=== PATIENT | female | born 1950 | race Caucasian/White ===

== ENCOUNTER 2019-10-05 14:28 | Inpatient (IN) ==
[2019-10-05] MEDS ORDERED: SODIUM CHLORIDE 0.9% 1000ML 2,000 ML IV ONE (14:56)
[2019-10-05 15:41] LABS: Basophils # (auto) 0.04 K/uL (0-0.2); Basophils % (auto) 0.4 %; Eosinophils # (auto) 0.09 K/uL (0-0.5); Hematocrit (blood only) 36.9 % (37-47); Hemoglobin 12.8 g/dL (12.0-16.0); Immature Granulocytes # (auto) 0.01 K/uL (0.00-0.02); Immature Granulocytes % (auto) 0.1 %; Lymphocytes # (auto) 1.21 K/uL (1.2-3.4); Lymphocytes % (auto) 13.4 %; Mean Corpuscular Hemoglobin 32.5 pg (25-34); Mean Corpuscular Hgb Conc 34.7 g/dL (32-36); Mean Corpuscular Volume 93.7 fL (80-100); Mean Platelet Volume 10.1 fL (7.4-10.4); Monocytes % (auto) 6.7 %; Neutrophils # (auto) 7.06 K/uL (1.4-6.5); Neutrophils % (auto) 78.4 %; Nucleated RBC # (auto) 0.04 K/uL (0-0); Nucleated RBC % (auto) 0.4 %; Platelet Count 338 K/uL (130-400); RDW Coefficient of Variation 14.8 % (11.5-14.5); Red Blood Count 3.94 M/uL (4.2-5.4); White Blood Count 9.01 K/uL (4.8-10.8)
[2019-10-05 15:44] LABS: Appearance Urine Turbid (Clear); Blood Urine 3+ (Negative); Color Urine Orange; Glucose Urine UA Trace (Negative); Ketones Urine Trace (Negative); Leukocyte Esterase Urine 3+ (Negative); Nitrite Urine Negative (Negative); Protein Urine 1+ (Negative); Urobilinogen Urine Negative (Negative); pH Urine 5.5 (4.5-7.5)
[2019-10-05 15:44] LABS: iSTAT Creatinine 0.8 mg/dl (0.6-1.3); iSTAT Hemoglobin 13.9 g/dl (12.0-16.0); iSTAT Ionized Calcium 1.14 mmol/l (1.12-1.32); iSTAT Potassium 3.2 mEq/L (3.3-5.0)
[2019-10-05 15:47] LABS: Bilirubin Urine 3+ (Negative)
[2019-10-05 15:51] LABS: Ictotest Urine Positive (Negative)
[2019-10-05 15:55] LABS: Epithelial Cell Urine 20-30 /lpf (0-5); WBC Urine >30 /hpf (0-5)
[2019-10-05 15:56] LABS: Bacteria Urine 2+ (Negative)
[2019-10-05 15:57] LABS: Hyaline Casts Urine 0-5 /lpf (0-5)
[2019-10-05 16:07] LABS: Albumin Globulin Ratio 0.7 (0.9-2); Albumin Level 3.2 gm/dl (3.4-5.0); BUN Creatinine Ratio 13.5 (10-20); Bilirubin,Total 19.8 mg/dl (0.2-1); Calcium 9.5 mg/dl (8.5-10.1); Creatinine Clr Calc Pharmacy 55.4 ml/min; Est GFR (African American) 61.8; Est GFR (Non-African American) 53.3; Globulin 4.9 gm/dl (2.5-4.0); Potassium 3.1 mmol/L (3.5-5.1); Total Protein 8.1 gm/dl (6.4-8.2)
[2019-10-05] MEDS ORDERED: IOVERSOL 100ml IV PRN (16:24)
--- NOTE | 2019-10-05 16:52 | CT Scan Report ---
CT OF THE ABDOMEN AND PELVIS WITH CONTRAST CLINICAL HISTORY: Jaundice. Nausea and vomiting. COMPARISON STUDY: None. TECHNIQUE: Following IV administration of 93 mL of Optiray-320, axial images of the abdomen and pelvi s were obtained from the lung bases to the proximal femurs. Images were reviewed in the axial, sagitt al, and coronal planes. IV contrast was administered without complication. Automated exposure contro l was utilized for the study. A dose lowering technique was utilized adhering to the principles of A DEVENDRA. CT DOSE: 998.81 mGycm FINDINGS: Lung bases are unremarkable. There is moderate to marked intra and extrahepatic biliary stevie elfego dilatation. The common bile duct measures 1.8 cm in caliber. There is abrupt caliber change of th e mid common bile duct. An enlarged portacaval lymph node measures 2.1 x 1.5 cm. The pancreatic duct is also dilated, measuring 6 mm in caliber. There is abrupt caliber change of the pancreatic duct wit hin the pancreatic head. An ill-defined hypodense pancreatic mass measures approximately 4 x 2.9 cm. Pancreatic glandular atrophy is noted. There is slight narrowing of the portosplenic confluence with mild mass effect upon the main portal vein which is patent. Superior mesenteric artery is patent. Not e is made of a 1.3 cm nodule along the left lateral aspect of the superior mesenteric vein on axial i mage 173 of 516. This is ill-defined. A 9 mm hypodense lateral segment hepatic lesion on image 96 of 516 is noted. No additional hepatic lesions are present. Gallbladder is moderately distended without adjacent infiltration. The spleen, adrenal glands and kidneys are unremarkable. Is no evidence for a bowel obstruction. The appendix is normal. Mild distention of the bladder is noted. There is no pelvi c lymphadenopathy. There are no suspicious osseous lesions. IMPRESSION: 1. Mass within the pancreatic head and neck, measuring approximately 4 x 2.9 cm, with pancreatic and biliary ductal dilatation highly suggestive of pancreatic adenocarcinoma. GI consultation is recommen ded. 2. Several mildly enlarged peripancreatic/portacaval lymph nodes that measure up to 2.1 x 1.5 cm and are suspicious for cristóbal spread of disease. 1.3 cm ill-defined nodule along the left lateral aspect o f the superior mesenteric vein may reflect an enlarged node or tumor implant. Mild narrowing of the p ortosplenic confluence and main portal vein which is patent. 3. Moderate to marked gallbladder distention. 4. 9 mm hypodense lateral segment hepatic lesion. This lesion is indeterminate although probably fidel gn. Electronically signed by: Rodger Campos M.D. 10/05/2019 4:51 PM
[2019-10-05] MEDS ORDERED: ACETAMINOPHEN 325 MG TAB PO PRN ×2 (17:52→17:57)
[2019-10-05] MEDS ORDERED: ONDANSETRON INJ 2 MG/ML 2 ML VIAL IV PRN (17:57)
--- NOTE | 2019-10-05 18:01 | History & Physical Report ---
Date of Service October 05, 2019 Assessment & Plan (1) Pancreatic mass: -Admit to [facility] - significant jaundice secondary to pancreatic mass identified on CT scan -CT reviewed as following: Mass within the pancreatic head and neck, measuring approximately 4 x 2.9 cm, with pancreatic and biliary ductal dilatation highly suggestive of pancreatic adenocarcinoma. GI consultation is recommended. Several mildly enlarged peripancreatic/portacaval lymph nodes that measure up to 2.1 x 1.5 cm and are suspicious for cristóbal spread of disease. 1.3 cm ill- defined nodule along the left lateral aspect of the superior mesenteric vein may reflect an enlarged node or tumor implant. Mild narrowing of the portosplenic confluence and main portal vein which is patent. Moderate to marked gallbladder distention. 9 mm hypodense lateral segment hepatic lesion. This lesion is indeterminate although probably benign. - total bilirubin of 19.1 - AST 102, ALT 160, alk phos 283, trend with am labs - GI consultation, for ERCP and possible stent placement, will need biopsy of the mass, oncological consultation pending results. - Allow diet tonight with full liquids and then NPO after midnight for possible procedure - No chemical ppx in anticipation of procedure - INR with am labs - Continue multivitamin - PT/OT consults (2) Biliary obstruction: (3) Transaminitis: (4) Obesity (BMI 30.0-34.9): - recent weight loss of 7 lbs in past week due to poor oral intake with n/v. Reports was recently eliminating lunch and replaced that meal with a green drink (blended kale, cucumber, spinach, citrus, etc.) - Consider nutritional consultation pending bx results. (5) DVT prophylaxis: -teds, ambulatory CODE: FULL Dispo: From home, to assist with dc planning History of Present Illness Primary Care Provider: Akila Archer This is a 68 yo F without significant PMhx who presents due to recent symptoms including nausea and vomiting which began last Friday through Friday, then appeared to resolve which was then followed by progressive jaundice. The patient notes she called and scheduled an appointment with Dr. Lockwood in [place] for new patient, but would not be able to see her for the next 6 months. She presented to the ER today due to worsening jaundice. She denies any abdominal pain, nausea or vomiting at this time. Patient admits to decreased appetite over the last 2 weeks, she has had approximately 7 pounds of weight loss over the last 1 week which she believes is secondary to poor appetite/nausea and vomiting. She notes her urine is very dark, denies dysuria, hematuria. Of note the patient mentions that her sister who is currently 72 is being followed by [facility] for pancreatic issues which she was only diagnosed within this past month. Her daughter is present at bedside. Patient with transaminitis with total bilirubin = 19.8, AST 102, ALT 160, alk phos 283. Allergies Allergy/AdvReac Type Severity Reaction Status Date / Time No Known Allergies Allergy Unverified 10/05/19 15:55 Home Medications Home Medications Medication Instructions Recorded Confirmed Type multivitamin 1 tab PO QAM 10/05/19 10/05/19 History Past Med/Surg History Medical History No pertinent past medical history Surgical History No history of previous surgery Social History Preferred Language: American Communication Ability: Effective Photo Mask Cleaner Required: No Beliefs That Will Affect Care: None Current Living Situation: Spouse Other Information That Helps Us Care for You: No Feels Safe at Home: Yes Safety Concerns: Feels Safe At This Time Smoking Status: Never smoker Hx Alcohol Use: No Hx Substance Use: No Review of Systems Review of Systems: Constitutional: No fever, sweats or chills, no night sweats or B-symptoms Eyes: No diplopia, no worsening or blurred vision ENT: normal hearing, no trouble swallowing Respiratory: No cough, sputum, dyspnea at rest or on exertion Cardiovascular: No chest pain, tightness or palpitations Abdomen: As per HPI. Musculoskeletal: No joint pain, calf pain, swelling Neurologic: No weakness, numbness/tingling, or balance problems Psychiatric: No anxiety or depression Skin: No rash or itch Physical Exam Physical Exam: General: awake, alert, no apparent distress, + severe jaundice Head: Normocephalic, atraumatic ENT: PERRL, EOMI, no pharyngeal exudate, mucous membranes moist Chest: Clear to auscultation, on room air, no adventitious breath sounds Cardiac: Regular rate and rhythm, no murmur, no JVD, normal peripheral pulses, good capillary refill Abdominal: NABS x 4 quadrants, soft, nondistended, nontender to palpation, no rebound, guarding or tenderness Extremities: Normal inspection, no peripheral edema or erythema, calfs nontender to palpation Psych: Normal mood and affect Neuro: AAO x 3, strength intact bilaterally and related 5/5, no motor deficits, speech is clear, no peripheral sensory deficits Skin: no rash or erythema Results & Data Vital Signs (Past 12 Hours) Vital Signs Temp Pulse Pulse Resp BP BP Pulse Ox 10/05/19 17:08 74 157/89 H 95 10/05/19 15:38 99 10/05/19 15:36 77 18 150/78 H 99 10/05/19 14:34 36.5 C 83 16 155/[address] OF THE ABDOMEN AND PELVIS WITH CONTRAST CLINICAL HISTORY: Jaundice. Nausea and vomiting. COMPARISON STUDY: None. TECHNIQUE: Following IV administration of 93 mL of Optiray-320, axial images of the abdomen and pelvis were obtained from the lung bases to the proximal femurs. Images were reviewed in the axial, sagittal, and coronal planes. IV contrast was administered without complication. Automated exposure control was utilized for the study. A dose lowering technique was utilized adhering to the principles of ALARA. CT DOSE: 998.81 mGycm FINDINGS: Lung bases are unremarkable. There is moderate to marked intra and extrahepatic biliary ductal dilatation. The common bile duct measures 1.8 cm in caliber. There is abrupt caliber change of the mid common bile duct. An enlarged portacaval lymph node measures 2.1 x 1.5 cm. The pancreatic duct is also dilated, measuring 6 mm in caliber. There is abrupt caliber change of the pancreatic duct within the pancreatic head. An ill-defined hypodense pancreatic mass measures approximately 4 x 2.9 cm. Pancreatic glandular atrophy is noted. There is slight narrowing of the portosplenic confluence with mild mass effect upon the main portal vein which is patent. Superior mesenteric artery is patent. Note is made of a 1.3 cm nodule along the left lateral aspect of the superior mesenteric vein on axial image 173 of 516. This is ill-defined. A 9 mm hypodense lateral segment hepatic lesion on image 96 of 516 is noted. No additional hepatic lesions are present. Gallbladder is moderately distended without adjacent infiltration. The spleen, adrenal glands and kidneys are unremarkable. Is no evidence for a bowel obstruction. The appendix is normal. Mild distention of the bladder is noted. There is no pelvic lymphadenopathy. There are no suspicious osseous lesions. IMPRESSION: 1. Mass within the pancreatic head and neck, measuring approximately 4 x 2.9 cm, with pancreatic and biliary ductal dilatation highly suggestive of pancreatic adenocarcinoma. GI consultation is recommended. 2. Several mildly enlarged peripancreatic/portacaval lymph nodes that measure up to 2.1 x 1.5 cm and are suspicious for cristóbal spread of disease. 1.3 cm ill- defined nodule along the left lateral aspect of the superior mesenteric vein may reflect an enlarged node or tumor implant. Mild narrowing of the portosplenic confluence and main portal vein which is patent. 3. Moderate to marked gallbladder distention. 4. 9 mm hypodense lateral segment hepatic lesion. This lesion is indeterminate although probably benign. Code Status & VTE Plan Code Status Full Code -discussed with the patient at bedside PG Care Time/CCT Total # of Minutes Spent Total Time Spent with Patient: Total time spent is greater than 50% in coordination of care (as documented) at patient's floor/unit and/or counseling patient:
[2019-10-05] MEDS ORDERED: cefTRIAXone SODIUM 1,000 MG/50 ML BAG IV SCH (18:30)
--- NOTE | 2019-10-05 19:51 | Emergency Department Note ---
Entered by Beth Oh acting as a scribe for Dominick Palomo DO History of Present Illness General Chief complaint: Illness Stated complaint: YELLOWING OF SKIN AND EYES Source: patient and family History of Present Illness Onset (ago): week(s) 1 Location: face (jaundice ) Maximum Pain Intensity: 0 Associated symptoms: + denies other symptoms (abdominal pain, rhinorrhea, dizziness ), + nausea/vomiting (began 1 week ago (now resolved)) and + other (sleeping car porter stool 1 week ago, darkened urine and itchy skin 5 days ago associated with jaundice ); no headaches The patient is a 68 year old female who presents to the Emergency Room with complaints of illness. The patient states that 1 week ago she began to experience nausea and vomiting which have now resolved. She also reports that she noticed that her stool seemed sleeping car porter during this time. 5 days ago she began to develop jaundice associated with darkened urine and itchy skin. Of note, she does not have a history of cancer, alcohol abuse, or abdominal surgeries. Additionally she has not had any recent travel. She denies abdominal pain, rhinorrhea, headache, and dizziness. The patient offers no additional concerns at this time. No other exacerbating or remitting factors. Home Medications Home Medications Medication Instructions Recorded Confirmed Type multivitamin 1 tab PO QAM 10/05/19 10/05/19 History Allergies Allergy/AdvReac Type Severity Reaction Status Date / Time No Known Allergies Allergy Unverified 10/05/19 15:55 Past Med/Surg History Medical History No pertinent past medical history Surgical History No history of previous surgery Social History Preferred Language: [place] Communication Ability: Effective Doubler Operator Required: No Beliefs That Will Affect Care: None Current Living Situation: Spouse Feels Safe at Home: Yes Smoking Status: Never smoker Hx Alcohol Use: No Hx Substance Use: No Review of Systems See HPI for pertinent positives & negatives. and A total of 10 systems reviewed and were otherwise negative Physical Exam Vital Signs Vital Signs - 24 hr 10/05/19 14:34 10/05/19 15:36 10/05/19 15:38 Temperature 36.5 C Temperature Source Oral Pulse Rate 83 Pulse Rate [Apical] 77 Pulse Rhythm [Apical] Regular Pulse Strength [Apical] Normal Respiratory Rate 16 18 Respiratory Effort / Characteristics Non-Labored Spontaneous Respiratory Depth Normal Blood Pressure 155/83 H Blood Pressure [Left Arm] 150/78 H Blood Pressure Mean 107 Blood Pressure Mean [Left Arm] 102 Blood Pressure Position [Left Arm] Sitting Pulse Oximetry 100 99 99 Oxygen Delivery Method Room Air Room Air Room Air Sepsis Recent Fever Within 48 Hours No Sepsis Action Taken by Nursing No Action Required 10/05/19 17:08 Temperature Temperature Source Pulse Rate Pulse Rate [Apical] 74 Pulse Rhythm [Apical] Regular Pulse Strength [Apical] Normal Respiratory Rate Respiratory Effort / Characteristics Respiratory Depth Normal Blood Pressure Blood Pressure [Left Arm] 157/89 H Blood Pressure Mean Blood Pressure Mean [Left Arm] 111 Blood Pressure Position [Left Arm] Pulse Oximetry 95 Oxygen Delivery Method Room Air Sepsis Recent Fever Within 48 Hours Sepsis Action Taken by Nursing GENERAL: alert, well nourished, no distress, non-toxic, standing in room EYE EXAM: scleral icterus OROPHARYNX: no exudate, no erythema, lips, buccal mucosa, and tongue normal and mucous membranes are moist NECK: supple, no nuchal rigidity, no adenopathy, non-tender LUNGS: Clear to auscultation. Normal chest wall mechanics HEART: no murmurs, S1 normal and S2 normal ABDOMEN: abdomen soft, non-tender, normo-active bowel sounds, no masses, no rebound or guarding. BACK: Back is symmetrical on inspection and there is no deformity, no midline tenderness, no CVA tenderness. SKIN: no rashes and no bruising UPPER EXTREMITIES: upper extremities are grossly normal. LOWER EXTREMITIES: No pitting edema. NEURO EXAM: Normal sensorium, cranial nerves II-XII grossly intact, normal speech, no gross weakness of arms, no gross weakness of legs. Course Course ED COURSE: Vital signs were reviewed and showed hypertension. The patients medical record was reviewed The above diagnostic studies were performed and reviewed. ED treatments and interventions as stated above. 1454: The patient was evaluated in room B10. A complete history and physical examination was performed. 1733: Upon reevaluation, the patient is resting.I discussed my findings with the her and she understands and agrees with the treatment plan. Based on the patients age, coexisting illnesses, exam and lab findings the decision to treat as an inpatient was made. 1753: The patient wanted to go home but after further discussion she has reconsidered and is willing to stay. The patient remained stable while under my care. The patient will be evaluated for further management by Dr. Downing, [facility] Hospitalist. Administered Medications Ioversol (Optiray 320 100ml) 93 ml IV ONCE PRN PRN Reason: Interaction Checking Stop: 10/09/19 16:23 Last Admin: 10/05/19 16:25 Dose: 93 ml Documented by: [id number] Discontinued Medications Sodium Chloride (Nss 1000ml) 2,000 mls @ 999 mls/hr IV .Q2H1M ONE Stop: 10/05/19 16:56 Last Infusion: 10/05/19 17:37 Dose: 0 mls/hr Documented by: [id number] Admin: 10/05/19 15:30 Dose: 999 mls/hr Documented by: [id number] Medical Decision Making Differential Diagnosis Differential diagnoses includes but is not limited to gastritis, peptic ulcer disease, GERD, gallbladder disease, pancreatitis, small bowel obstruction, acute coronary syndrome, pericarditis, ischemic bowel, irritable bowel disease, irritable bowel syndrome, appendicitis, diverticulitis, malignancy, hernia, urinary tract infection, torsion, /ectopic (if female), perforation, trauma, infectious. Medical Records Attestation: I reviewed the patient's medical records. Home Medications Current Medication List: was personally reviewed by me Laboratory Data Attestation: I reviewed the patient's lab results. Result diagrams: 10/05/19 15:26 10/05/19 15:26 Lab Results 10/05/19 10/05/19 10/05/19 Range/Units 15:26 15:26 15:27 WBC 9.01 (4.8-10.8) K/uL RBC 3.94 L (4.2-5.4) M/uL Hgb 12.8 (12.0-16.0) g/dL POC Hgb (12.0-16.0) g/dl Hct 36.9 L (37-47) % POC Hct (37-47) % MCV 93.7 (80-100) fL MCH 32.5 (25-34) pg MCHC 34.7 (32-36) g/dL RDW Std Deviation 51.0 H (36.4-46.3) fL RDW Coeff of Axel 14.8 H (11.5-14.5) % Plt Count 338 (130-400) K/uL MPV 10.1 (7.4-10.4) fL Immature Gran % (Auto) 0.1 % Neut % (Auto) 78.4 % Lymph % (Auto) 13.4 % [place] % (Auto) 6.7 % Eos % (Auto) 1.0 % Baso % (Auto) 0.4 % Immature Gran # (Auto) 0.01 (0.00-0.02) K/uL Neut # (Auto) 7.06 H (1.4-6.5) K/uL Lymph # (Auto) 1.21 (1.2-3.4) K/uL [place] # (Auto) 0.60 H (0.11-0.59) K/uL Eos # (Auto) 0.09 (0-0.5) K/uL Baso # (Auto) 0.04 (0-0.2) K/uL Absolute Nucleated RBC 0.04 H (0-0) K/uL Nucleated RBC % (auto) 0.4 % POC Sodium (135-144) mEq/L Sodium 135 L (136-145) mmol/L POC Potassium (3.3-5.0) mEq/L Potassium 3.1 L (3.5-5.1) mmol/L POC Chloride (101-112) mEq/L Chloride 100 (98-107) mmol/L Carbon Dioxide 28 (21-32) mmol/L POC Total CO2 (24-31) mEq/l Anion Gap 7.0 (3-11) POC Anion Gap (16-25) mmol/L POC BUN (7-18) mg/dl BUN 14 (7-18) mg/dl Creatinine 1.07 (0.6-1.2) mg/dl POC Creatinine (0.6-1.3) mg/dl Est Cr Clr Drug Dosing 55.4 ml/min Est GFR ( Amer) 61.8 Est GFR (Non-Af Amer) 53.3 BUN/Creatinine Ratio 13.5 (10-20) Glucose 136 H (70-99) mg/dl POC Glucose (other) (70-99) mg/dl Calcium 9.5 (8.5-10.1) mg/dl POC Ioniz Calcium Liseth (1.12-1.32) mmol/l Total Bilirubin 19.8 H (0.2-1) mg/dl AST 102 H (15-37) U/L ALT 160 H (12-78) U/L Alkaline Phosphatase 283 H (45-117) U/L Total Protein 8.1 (6.4-8.2) gm/dl Albumin 3.2 L (3.4-5.0) gm/dl Globulin 4.9 H (2.5-4.0) gm/dl Albumin/Globulin Ratio 0.7 L (0.9-2) Lipase 182 (73-393) U/L Urine Color [place] Urine Appearance Turbid A (Clear) Urine pH 5.5 (4.5-7.5) Ur Specific [place] 1.020 (1.000-1.030) Urine Protein 1+ H (Negative) Urine Glucose (UA) Trace H (Negative) Urine Ketones Trace H (Negative) Urine Blood 3+ H (Negative) Urine Nitrite Negative (Negative) Urine Bilirubin 3+ H (Negative) Urine Urobilinogen Negative (Negative) Ur Leukocyte Esterase 3+ H (Negative) Urine RBC 10-30 H (0-4) /hpf Urine WBC >30 H (0-5) /hpf Ur Epithelial Cells 20-30 H (0-5) /lpf Urine Bacteria 2+ H (Negative) Hyaline Casts 0-5 (0-5) /lpf Granular Casts 1-5 H (0) /lpf // Range/Units 15:29 WBC (4.8-10.8) K/uL RBC (4.2-5.4) M/uL Hgb (12.0-16.0) g/dL POC Hgb 13.9 (12.0-16.0) g/dl Hct (37-47) % POC Hct 41 (37-47) % MCV (80-100) fL MCH (25-34) pg MCHC (32-36) g/dL RDW Std Deviation (36.4-46.3) fL RDW Coeff of Axel (11.5-14.5) % Plt Count (130-400) K/uL MPV (7.4-10.4) fL Immature Gran % (Auto) % Neut % (Auto) % Lymph % (Auto) % [place] % (Auto) % Eos % (Auto) % Baso % (Auto) % Immature Gran # (Auto) (0.00-0.02) K/uL Neut # (Auto) (1.4-6.5) K/uL Lymph # (Auto) (1.2-3.4) K/uL [place] # (Auto) (0.11-0.59) K/uL Eos # (Auto) (0-0.5) K/uL Baso # (Auto) (0-0.2) K/uL Absolute Nucleated RBC (0-0) K/uL Nucleated RBC % (auto) % POC Sodium 137 (135-144) mEq/L Sodium (136-145) mmol/L POC Potassium 3.2 L (3.3-5.0) mEq/L Potassium (3.5-5.1) mmol/L POC Chloride 99 L (101-112) mEq/L Chloride (98-107) mmol/L Carbon Dioxide (21-32) mmol/L POC Total CO2 27 (24-31) mEq/l Anion Gap (3-11) POC Anion Gap 15.0 L (16-25) mmol/L POC BUN 14 (7-18) mg/dl BUN (7-18) mg/dl Creatinine (0.6-1.2) mg/dl POC Creatinine 0.8 (0.6-1.3) mg/dl Est Cr Clr Drug Dosing ml/min Est GFR ( Amer) Est GFR (Non-Af Amer) BUN/Creatinine Ratio (10-20) Glucose (70-99) mg/dl POC Glucose (other) 139 H (70-99) mg/dl Calcium (8.5-10.1) mg/dl POC Ioniz Calcium [place] 1.14 (1.12-1.32) mmol/l Total Bilirubin (0.2-1) mg/dl AST (15-37) U/L ALT (12-78) U/L Alkaline Phosphatase (45-117) U/L Total Protein (6.4-8.2) gm/dl Albumin (3.4-5.0) gm/dl Globulin (2.5-4.0) gm/dl Albumin/Globulin Ratio (0.9-2) Lipase (73-393) U/L Urine Color Urine Appearance (Clear) Urine pH (4.5-7.5) Ur Specific [place] (1.000-1.030) Urine Protein (Negative) Urine Glucose (UA) (Negative) Urine Ketones (Negative) Urine Blood (Negative) Urine Nitrite (Negative) Urine Bilirubin (Negative) Urine Urobilinogen (Negative) Ur Leukocyte Esterase (Negative) Urine RBC (0-4) /hpf Urine WBC (0-5) /hpf Ur Epithelial Cells (0-5) /lpf Urine Bacteria (Negative) Hyaline Casts (0-5) /lpf Granular Casts (0) /lpf Imaging Data Radiologist's Impression: Radiology results as stated below per my review and the radiologist's interpretation: CT OF THE ABDOMEN AND PELVIS WITH CONTRAST CLINICAL HISTORY: Jaundice. Nausea and vomiting. COMPARISON STUDY: None. TECHNIQUE: Following IV administration of 93 mL of Optiray-320, axial images of the abdomen and pelvis were obtained from the lung bases to the proximal femurs. Images were reviewed in the axial, sagittal, and coronal planes. IV contrast was administered without complication. Automated exposure control was utilized for the study. A dose lowering technique was utilized adhering to the principles of ALARA. CT DOSE: 998.81 mGycm FINDINGS: Lung bases are unremarkable. There is moderate to marked intra and extrahepatic biliary ductal dilatation. The common bile duct measures 1.8 cm in caliber. There is abrupt caliber change of the mid common bile duct. An enlarged portacaval lymph node measures 2.1 x 1.5 cm. The pancreatic duct is also dilated, measuring 6 mm in caliber. There is abrupt caliber change of the pancreatic duct within the pancreatic head. An ill-defined hypodense pancreatic mass measures approximately 4 x 2.9 cm. Pancreatic glandular atrophy is noted. There is slight narrowing of the portosplenic confluence with mild mass effect upon the main portal vein which is patent. Superior mesenteric artery is patent. Note is made of a 1.3 cm nodule along the left lateral aspect of the superior mesenteric vein on axial image 173 of 516. This is ill-defined. A 9 mm hypodense lateral segment hepatic lesion on image 96 of 516 is noted. No additional hepatic lesions are present. Gallbladder is moderately distended without adjacent infiltration. The spleen, adrenal glands and kidneys are unremarkable. Is no evidence for a bowel obstruction. The appendix is normal. Mild distention of the bladder is noted. There is no pelvic lymphadenopathy. There are no suspicious osseous lesions. IMPRESSION: 1. Mass within the pancreatic head and neck, measuring approximately 4 x 2.9 cm, with pancreatic and biliary ductal dilatation highly suggestive of pancreatic adenocarcinoma. GI consultation is recommended. 2. Several mildly enlarged peripancreatic/portacaval lymph nodes that measure up to 2.1 x 1.5 cm and are suspicious for cristóbal spread of disease. 1.3 cm ill-defin ed nodule along the left lateral aspect of the superior mesenteric vein may reflect an enlarged node or tumor implant. Mild narrowing of the portosplenic confluence and main portal vein which is patent. 3. Moderate to marked gallbladder distention. 4. 9 mm hypodense lateral segment hepatic lesion. This lesion is indeterminate although probably benign. Electronically signed by: Rodger Campos M.D. 10/05/2019 4:51 PM Blood Pressure Blood Pressure Findings: Elevated blood pressure Blood Pressure Disposition: further management by hospitalist MDM Narrative Patient is a 68-year-old female that presents the ER for nausea vomiting which was present last week but now has resolved and has been progressively turning more more jaundiced. IV was established blood work was obtained showed no significant leukocytosis or anemia. BMP with mild hypokalemia. LFTs slightly elevated at 102 160. Bilirubin elevated at 20. Lipase was normal. UA without without infection although contaminated with multiple epithelial cells. Patient was given IV fluids. CT abdomen pelvis shows biliary obstruction with a pancreatic head mass. Patient was updated bedside. Discussed with GI and the hospitalist and patient was admitted for endoscopy. Impression & Plan Pancreatic mass, Biliary obstruction, Transaminitis Discharge Plan Visit Data *Final* Discharge Date/Time: 10/05/19 19:05 Chief Complaint: Illness Stated Complaint: YELLOWING OF SKIN AND EYES ED Provider: Dominick Palomo Discharge Problem: Pancreatic mass, Biliary obstruction, Transaminitis Patient Disposition: Admitted As Inpatient Discharge Instructions Interventions: ED Discharge Assessment Last Done: 10/05/19 19:05 The scribe's documentation has been prepared under my direction and personally reviewed by me in its entirety. I confirm that the note above accurately reflects all work, treatment, procedures, and medical decision making performed by me.
[2019-10-05 19:52] LABS: Bilirubin Direct 15.5 mg/dl (0-0.2)
[2019-10-06 06:45] LABS: Hemoglobin 11.4 g/dL (12.0-16.0); Mean Corpuscular Hemoglobin 32.7 pg (25-34); Mean Corpuscular Hgb Conc 34.5 g/dL (32-36); Mean Corpuscular Volume 94.6 fL (80-100); Mean Platelet Volume 10.1 fL (7.4-10.4); Platelet Count 329 K/uL (130-400); RDW Standard Deviation 51.4 fL (36.4-46.3); Red Blood Count 3.49 M/uL (4.2-5.4); White Blood Count 8.59 K/uL (4.8-10.8)
[2019-10-06 06:53] LABS: INR 1.5 (0.9-1.1); Prothrombin Time 14.6 Seconds (9.0-12.0)
[2019-10-06 07:22] LABS: Albumin Globulin Ratio 0.6 (0.9-2); Albumin Level 2.5 gm/dl (3.4-5.0); BUN Creatinine Ratio 10.2 (10-20); Bilirubin,Total 16.6 mg/dl (0.2-1); Calcium 8.7 mg/dl (8.5-10.1); Creatinine Clr Calc Pharmacy 73.2 ml/min; Est GFR (African American) 86.5; Est GFR (Non-African American) 74.6; Globulin 3.9 gm/dl (2.5-4.0); Potassium 3.1 mmol/L (3.5-5.1); Total Protein 6.4 gm/dl (6.4-8.2)
[2019-10-06 07:37] LABS: Estimated Average Glucose 140 mg/dl; Hemoglobin A1C 6.5 % (4.5-5.6)
[2019-10-06] MEDS: MULTIVITAMIN TAB PO SCH (08:47)
[2019-10-06] MEDS ORDERED: POTASSIUM CHLORIDE 20 MEQ TABCR PO ONE ×2 (09:15→13:00)
--- NOTE | 2019-10-06 10:07 | Gastrointestinal Consultation ---
Date of Consultation October 06, 2019 Assessment & Plan (1) Pancreatic mass: 1. ERCP today for stenting. I explained to the pt that this will improve her nausea/vomiting and jaundice but is not curative. 2. EUS later this week at [facility] for staging and possible tissue sampling. 3. K supplement and recheck serum K. 4. 5mg Vit K. 5. Continue antibiotic coverage of cholangitis though no clear evidence of infection: WBC normal, afebrile, no chills. 6. Further recommendations to follow ERCP. Present on Admission?: Yes Supervising Physician Co-Signing Physician Notes I performed a history and physical examination of the patient, including specifically on physical exam - soft, nontender abdomen. I have discussed the patient's management with Adeline. Please refer to the nurse practitioner's note for the documented findings and plan of care. ERCP today and EUS FNA Friday. History of Present Illness Reason for Consultation: Pancreatic Mass Requesting Physician: Dr. Pettit Attending Physician: Ender Ordoñez History of Present Illness Ms. Shelia Alvarez is a 68 yr old female pt of Dr. Lea Archer with a hx of obesity presented to [facility] yesterday with report of painless jaundice with nausea and vomiting, of one week duration. On arrival, CT with a 4cm pancreatic mass and possible liver mass. T bili 19.8, AST 102, ALT 160. Pt is awake, alert, oriented, and denies abdominal pain. She has not had any vomiting today. Allergies Allergy/AdvReac Type Severity Reaction Status Date / Time No Known Allergies Allergy Unverified 10/05/19 15:55 Home Medications Home Medications Medication Instructions Recorded Confirmed Type multivitamin 1 tab PO QAM 10/05/19 10/05/19 History Patient History Medical History No pertinent past medical history Surgical History No history of previous surgery Social History Preferred Language: Irish Communication Ability: Effective Licensed Club Manager Required: No Beliefs That Will Affect Care: None Current Living Situation: Spouse Feels Safe at Home: Yes Smoking Status: Never smoker Hx Alcohol Use: No Hx Substance Use: No Review of Systems Review of Systems: ROS: Gen: Denies weakness, fevers, weight loss Eyes: No eye redness, or pain, no recent vision changes Resp: No SOB, no cough Cardio: No palpitations/irregular beats, no chest pain GI: No abdominal pain, + nausea/vomiting : + dark urine, denies pain on urination Skin: + jaundice, itching or new rashes Physical Exam Constitutional: WD/WN, vitals as above Eyes: PERRL, conjunctivae normal, anicteric sclerae ENMT: external ear and nose normal, oropharynx normal Neck: trachea midline, no thyromegaly Respiratory: normal respiratory effort, lungs clear to auscultation Cardiovascular: RRR, no murmur, no edema Gastrointestinal (Abdomen): Inspection/Auscultation: abdomen not distended Percussion/Palpation: + abdomen tender and abdomen soft Musculoskeletal: no cyanosis or clubbing, extremities motor strength 5/5 Skin: + jaundice Neurologic: PERRL, EOMI, accommodation nl, no face palsy, no dysarthria Psychiatric: A+Ox3, euthymic affect Results & Data Vital Signs (Past 12 Hours) Vital Signs Temp Pulse Resp BP Pulse Ox 10/06/19 06:49 36.8 C 78 20 138/75 93 10/05/19 23:54 36.8 C 76 20 134/[address] with contrast 10/05/19: 1. Mass within the pancreatic head and neck, measuring approximately 4 x 2.9 cm, with pancreatic and biliary ductal dilatation highly suggestive of pancreatic adenocarcinoma. GI consultation is recommended. 2. Several mildly enlarged peripancreatic/portacaval lymph nodes that measure up to 2.1 x 1.5 cm and are suspicious for cristóbal spread of disease. 1.3 cm ill- defined nodule along the left lateral aspect of the superior mesenteric vein may reflect an enlarged node or tumor implant. Mild narrowing of the portosplenic confluence and main portal vein which is patent. 3. Moderate to marked gallbladder distention. 4. 9 mm hypodense lateral segment hepatic lesion. This lesion is indeterminate although probably benign
[2019-10-06] MEDS ORDERED: PHYTONADIONE 5 MG in SODIUM CHLORIDE 0.9% 50 ML IV ONE (10:30)
[2019-10-06] MEDS ORDERED: POTASSIUM CHLORIDE / WTR 10 MEQ/100 ML PLCT IV ONE (10:30)
[2019-10-06] MEDS ORDERED: PROPOFOL IV EMULSION 10 MG/ML 20 ML VIAL IV ONE (13:58)
[2019-10-06] MEDS ORDERED: DEXAMETHASONE SOD INJ 4 MG/ML VIAL ONE (13:58)
[2019-10-06] MEDS ORDERED: LIDOCAINE HCL 2% 2 ML VIAL/AMP(20MG/ML) INFIL ONE (13:58)
[2019-10-06] MEDS ORDERED: ONDANSETRON INJ 2 MG/ML 2 ML VIAL ONE (13:58)
[2019-10-06] MEDS ORDERED: fentaNYL citrate 100 MCG/2 ML VIAL ONE ×2 (13:58→15:03)
[2019-10-06] MEDS ORDERED: INDOMETHACIN 50 MG SUPP PR ONE (14:13)
--- NOTE | 2019-10-06 14:26 | Anesthesiology Consultation ---
Date of Service October 06, 2019 Pancreatic Mass Jaundice Assessment & Plan (1) Encounter for pre-operative examination: Chart Review Chart Review: Acceptable Risk for Surgery and Patient NOT seen in Pre Admission Testing Consults Requested none ASA ASA3 Proposed Anesthesia Anesthesia Type: General Risk / Benefits Reviewed With: PT / POA / Parent / Guardian, Accepts Plan and Informed Consent Obtained History Surgery Operation Date: 10/06/19 11:10 Proposed Procedures p Endoscopic Retrograde Cholangiopancreatogram - Francis Pacheco MD Height/Weight Height: 5 ft 5 in Weight: 89 kg Allergies Allergy/AdvReac Type Severity Reaction Status Date / Time No Known Allergies Allergy Unverified 10/05/19 15:55 Medications Home Medications Medication Instructions Recorded Confirmed Last Taken multivitamin 1 tab PO QAM 10/05/19 10/05/19 10/05/19 Active Medications Generic Name Dose Route Start Last Admin Trade Name Freq PRN Reason Stop Dose Admin Ceftriaxone Sodium 1,000 mg in 50 mls @ 100 mls/hr 10/05/19 18:30 10/05/19 23:02 Rocephin IV 10/10/19 18:29 Infused DAILY@1830 BENNIE Infusion Ioversol 93 ml 10/05/19 16:24 10/05/19 16:25 Optiray 320 100ml IV 10/09/19 16:23 93 ml ONCE PRN Administration Interaction Checking Multivitamins 1 tab 10/06/19 09:00 10/06/19 08:47 Multivitamin Tab PO 11/05/19 08:59 1 tab QAM BENNIE Administration NPO Date Last Intake of Fluids: 10/05/19 Time Last Intake of Fluids: 23:30 Last Intake of Fluids Comment: sip with pills this morning Date Last Intake of Solids: 10/05/19 Time Last Intake of Solids: 12:00 Past Medical History Medical History No pertinent past medical history Exercise / Class Metabolic Activity II 4-5 Yardwork/Stairs/Walk up hill Past Surgical History Surgical History No history of previous surgery Past Anesthesia History No Hx of Anesthesia Complications and No Family Hx of Anesthesia Complications History of PONV No Hx of PONV and No Hx of Motion Sickness Social History Smoking Status: Never smoker Hx Alcohol Use: No Hx Substance Use: No Physical Exam Vital Signs Last Vital Signs Temp 36.7 C 10/06/19 14:15 Pulse 73 10/06/19 14:15 Resp 20 10/06/19 14:15 BP 149/77 H 10/06/19 14:15 Pulse Ox 94 10/06/19 14:15 Constitutional + jaundice ENMT Mouth: + dentures (upper) and + loose teeth (see chart) Thyromental Distance: > or= 3.5 Finger Breadths Mallampati Class: II Mouth / Teeth: 1. Loose Neck normal visual inspection Respiratory normal respiratory effort Auscultation: lungs clear to auscultation bilaterally Cardiovascular Rate/Rhythm: regular rate and regular rhythm Psychiatric Orientation: alert Testing Laboratory Results 10/06/19 06:08 10/06/19 13:08 PT 14.6 Seconds (9.0-12.0) H 10/06/19 06:08 INR 1.5 (0.9-1.1) H 10/06/19 06:08 Hemoglobin A1c 6.5 % (4.5-5.6) H 10/06/19 06:08 Urine Color [place] 10/05/19 15:27 Urine Appearance Turbid (Clear) A 10/05/19 15:27 Urine pH 5.5 (4.5-7.5) 10/05/19 15:27 Ur Specific [place] 1.020 (1.000-1.030) 10/05/19 15:27 Urine Protein 1+ (Negative) H 10/05/19 15:27 Urine Glucose (UA) Trace (Negative) H 10/05/19 15:27 Urine Ketones Trace (Negative) H 10/05/19 15:27 Urine Nitrite Negative (Negative) 10/05/19 15:27 Ur Leukocyte Esterase 3+ (Negative) H 10/05/19 15:27 Urine RBC 10-30 /hpf (0-4) H 10/05/19 15:27 Urine WBC >30 /hpf (0-5) H 10/05/19 15:27 Ur Epithelial Cells 20-30 /lpf (0-5) H 10/05/19 15:27 10/05/19 15:27 Urine Culture - Preliminary Urine,Clean Catch Pin-point growth present, reincubating.
--- NOTE | 2019-10-06 15:17 | Hospitalist Progress Note ---
Date of Service October 06, 2019 Assessment & Plan (1) Pancreatic mass: - Presented with jaundice in setting of pancreatic mass noted on CT scan - likely related to pancreatic cancer. - CT A/P --> mass within the pancreatic head and neck, measuring approximately 4 x 2.9 cm, with pancreatic and biliary ductal dilatation highly suggestive of pancreatic adenocarcinoma. Several mildly enlarged peripancreatic/portacaval lymph nodes that measure up to 2.1 x 1.5 cm and are suspicious for cristóbal spread of disease. 1.3 cm ill-defined nodule along the left lateral aspect of the superior mesenteric vein may reflect an enlarged node or tumor implant. Mild narrowing of the portosplenic confluence and main portal vein which is patent. - T bili was 19 on admission, now trended down to 16. AST, ALT and Alk Phos also elevated. - GI consulted, s/p ERCP this afternoon - had single severe biliary stricture in lower third main bile duct with ductal dilatation, cytology pending. CBD stent was placed. - Plan EUS for FNA on Friday at 11:30 (avoid all NSAIDs) - Will need oncology referral pending biopsy results. - Monitor CMP daily - expect improvement in LFTs over next 24-48 hours. - Cipro 500 mg BID x 5 days. (2) Liver lesion: - CT A/P showed 9 mm hypodense lateral segment hepatic lesion. This lesion is indeterminate although probably benign. - F/u with oncology for staging purposes. (3) Biliary obstruction: - As noted above, in setting of pancreatic mass. (4) Transaminitis: - As noted above. - Monitor CMP daily. (5) Prolonged INR: - INR was 1.5; received Vit K 5 mg IV x 1 dose pre operatively. - Possibly related to underlying liver dysfunction vs. malnutrition in setting of limited diet and poor PO intake. (6) UTI (urinary tract infection): - Positive u/a on admission, UC is neg (prelim) - On Cipro for empiric coverage. (7) Obesity (BMI 30.0-34.9): - Recent weight loss of 7 lbs in past week due to poor oral intake with n/v. Reports was recently eliminating lunch and replaced that meal with a green drink (blended kale, cucumber, spinach, citrus, etc.) - Consider nutrition consultation. (8) Hypokalemia: - K level 3.1 - ordered K 40 mEq PO and also received K 10 mEq IV x 1 dose. - Repeat K level was 3.7. - Monitor K and Mag levels daily. (9) DVT prophylaxis: - TEDs; hold pharmacologic ppx for procedure. Dispo: Med/surg for evaluation of pancreatic meass. Supervising Physician Co-Signing Physician Notes Attending Attestation - Chart reviewed, care plan d/w BA Alvarez. I agree w/ the solomon components of her documentation. 68yo female with pancreatic mass resulting in biliary obstruction s/p ERCP today by [employer] ARREGUIN with placement of CBD stent. Plan for repeat labs in am; supportive care. Outpatient EUS this Friday. Ender Ordoñez MD Subjective Pt. has persistent jaundice, scleral icterus but denies abd pain, N/V. Plan for ERCP this afternoon. Review of Systems Review of Systems: All systems reviewed & are unremarkable except as noted in HPI & below Constitutional: + fatigue, + weakness and + anorexia; no fever and no chills Respiratory: no cough, no dyspnea, no dyspnea on exertion and no wheezing Cardiovascular: no chest pain, no palpitations and no edema Gastrointestinal: no abdominal pain, no nausea, no vomiting, no constipation and no diarrhea/loose stools Genitourinary: no difficulty urinating Musculoskeletal: no back pain and no joint pain Integumentary: + yellowing of the skin Physical Exam Physical Exam: General: Resting comfortably HEENT: NC/AT; PERRLA with EOMI; [place] conjunctiva, MMM. No erythema of posterior pharynx Neck: Supple and nontender Cardiac: RRR Lungs: CTA bilaterally Abdomen: Bowel normoactive X 4; Nontender to palpation Extremities: Warm. No edema present Neuro: No focal weakness Skin: Diffuse jaundice; also have scleral icterus bilaterally. Results & Data Vital Signs (Past 12 Hours) Vital Signs Temp Pulse Resp BP Pulse Ox 10/06/19 14:15 36.7 C 73 20 149/77 H 94 10/06/19 11:15 36.5 C 72 18 145/77 H 91 10/06/19 10:46 36.6 C 67 18 116/73 93 10/06/19 06:49 36.8 C 78 20 138/75 93 Laboratory Results 10/06/19 10/06/19 10/06/19 Range/Units 13:08 06:08 06:08 WBC (4.8-10.8) K/uL RBC (4.2-5.4) M/uL Hgb (12.0-16.0) g/dL POC Hgb (12.0-16.0) g/dl Hct (37-47) % POC Hct (37-47) % MCV (80-100) fL MCH (25-34) pg MCHC (32-36) g/dL RDW Std Deviation (36.4-46.3) fL RDW Coeff of Axel (11.5-14.5) % Plt Count (130-400) K/uL MPV (7.4-10.4) fL Immature Gran % (Auto) % Neut % (Auto) % Lymph % (Auto) % Graham % (Auto) % Eos % (Auto) % Baso % (Auto) % Immature Gran # (Auto) (0.00-0.02) K/uL Neut # (Auto) (1.4-6.5) K/uL Lymph # (Auto) (1.2-3.4) K/uL Graham # (Auto) (0.11-0.59) K/uL Eos # (Auto) (0-0.5) K/uL Baso # (Auto) (0-0.2) K/uL Absolute Nucleated RBC (0-0) K/uL Nucleated RBC % (auto) % PT (9.0-12.0) Seconds INR (0.9-1.1) POC Sodium (135-144) mEq/L Sodium 139 (136-145) mmol/L POC Potassium (3.3-5.0) mEq/L Potassium 3.7 D 3.1 L (3.5-5.1) mmol/L POC Chloride (101-112) mEq/L Chloride 105 (98-107) mmol/L Carbon Dioxide 28 (21-32) mmol/L POC Total CO2 (24-31) mEq/l Anion Gap 6.0 (3-11) POC Anion Gap (16-25) mmol/L POC BUN (7-18) mg/dl BUN 8 D (7-18) mg/dl Creatinine 0.81 (0.6-1.2) mg/dl POC Creatinine (0.6-1.3) mg/dl Est Cr Clr Drug Dosing 73.2 ml/min Est GFR ( Amer) 86.5 Est GFR (Non-Af Amer) 74.6 BUN/Creatinine Ratio 10.2 (10-20) Glucose 133 H (70-99) mg/dl POC Glucose (other) (70-99) mg/dl Estimat Average Glucose 140 mg/dl Hemoglobin A1c 6.5 H (4.5-5.6) % Calcium 8.7 (8.5-10.1) mg/dl POC Ioniz Calcium Liseth (1.12-1.32) mmol/l Total Bilirubin 16.6 H (0.2-1) mg/dl Direct Bilirubin (0-0.2) mg/dl AST 81 H (15-37) U/L ALT 123 H (12-78) U/L Alkaline Phosphatase 226 H (45-117) U/L Total Protein 6.4 D (6.4-8.2) gm/dl Albumin 2.5 L (3.4-5.0) gm/dl Globulin 3.9 (2.5-4.0) gm/dl Albumin/Globulin Ratio 0.6 L (0.9-2) Lipase (73-393) U/L Urine Color Urine Appearance (Clear) Urine pH (4.5-7.5) Ur Specific [place] (1.000-1.030) Urine Protein (Negative) Urine Glucose (UA) (Negative) Urine Ketones (Negative) Urine Blood (Negative) Urine Nitrite (Negative) Urine Bilirubin (Negative) Urine Urobilinogen (Negative) Ur Leukocyte Esterase (Negative) Urine RBC (0-4) /hpf Urine WBC (0-5) /hpf Ur Epithelial Cells (0-5) /lpf Urine Bacteria (Negative) Hyaline Casts (0-5) /lpf Granular Casts (0) /lpf 10/06/19 10/06/19 10/05/19 Range/Units 06:08 06:08 15:29 WBC 8.59 (4.8-10.8) K/uL RBC 3.49 L (4.2-5.4) M/uL Hgb 11.4 L (12.0-16.0) g/dL POC Hgb 13.9 (12.0-16.0) g/dl Hct 33.0 L (37-47) % POC Hct 41 (37-47) % MCV 94.6 (80-100) fL MCH 32.7 (25-34) pg MCHC 34.5 (32-36) g/dL RDW Std Deviation 51.4 H (36.4-46.3) fL RDW Coeff of Axel 15.0 H (11.5-14.5) % Plt Count 329 (130-400) K/uL MPV 10.1 (7.4-10.4) fL Immature Gran % (Auto) % Neut % (Auto) % Lymph % (Auto) % Graham % (Auto) % Eos % (Auto) % Baso % (Auto) % Immature Gran # (Auto) (0.00-0.02) K/uL Neut # (Auto) (1.4-6.5) K/uL Lymph # (Auto) (1.2-3.4) K/uL Graham # (Auto) (0.11-0.59) K/uL Eos # (Auto) (0-0.5) K/uL Baso # (Auto) (0-0.2) K/uL Absolute Nucleated RBC (0-0) K/uL Nucleated RBC % (auto) % PT 14.6 H (9.0-12.0) Seconds INR 1.5 H (0.9-1.1) POC Sodium 137 (135-144) mEq/L Sodium (136-145) mmol/L POC Potassium 3.2 L (3.3-5.0) mEq/L Potassium (3.5-5.1) mmol/L POC Chloride 99 L (101-112) mEq/L Chloride (98-107) mmol/L Carbon Dioxide (21-32) mmol/L POC Total CO2 27 (24-31) mEq/l Anion Gap (3-11) POC Anion Gap 15.0 L (16-25) mmol/L POC BUN 14 (7-18) mg/dl BUN (7-18) mg/dl Creatinine (0.6-1.2) mg/dl POC Creatinine 0.8 (0.6-1.3) mg/dl Est Cr Clr Drug Dosing ml/min Est GFR ( Amer) Est GFR (Non-Af Amer) BUN/Creatinine Ratio (10-20) Glucose (70-99) mg/dl POC Glucose (other) 139 H (70-99) mg/dl Estimat Average Glucose mg/dl Hemoglobin A1c (4.5-5.6) % Calcium (8.5-10.1) mg/dl POC Ioniz Calcium Liseth 1.14 (1.12-1.32) mmol/l Total Bilirubin (0.2-1) mg/dl Direct Bilirubin (0-0.2) mg/dl AST (15-37) U/L ALT (12-78) U/L Alkaline Phosphatase (45-117) U/L Total Protein (6.4-8.2) gm/dl Albumin (3.4-5.0) gm/dl Globulin (2.5-4.0) gm/dl Albumin/Globulin Ratio (0.9-2) Lipase (73-393) U/L Urine Color Urine Appearance (Clear) Urine pH (4.5-7.5) Ur Specific [place] (1.000-1.030) Urine Protein (Negative) Urine Glucose (UA) (Negative) Urine Ketones (Negative) Urine Blood (Negative) Urine Nitrite (Negative) Urine Bilirubin (Negative) Urine Urobilinogen (Negative) Ur Leukocyte Esterase (Negative) Urine RBC (0-4) /hpf Urine WBC (0-5) /hpf Ur Epithelial Cells (0-5) /lpf Urine Bacteria (Negative) Hyaline Casts (0-5) /lpf Granular Casts (0) /lpf 10/05/19 10/05/19 10/05/19 Range/Units 15:27 15:26 15:26 WBC 9.01 (4.8-10.8) K/uL RBC 3.94 L (4.2-5.4) M/uL Hgb 12.8 (12.0-16.0) g/dL POC Hgb (12.0-16.0) g/dl Hct 36.9 L (37-47) % POC Hct (37-47) % MCV 93.7 (80-100) fL MCH 32.5 (25-34) pg MCHC 34.7 (32-36) g/dL RDW Std Deviation 51.0 H (36.4-46.3) fL RDW Coeff of Axel 14.8 H (11.5-14.5) % Plt Count 338 (130-400) K/uL MPV 10.1 (7.4-10.4) fL Immature Gran % (Auto) 0.1 % Neut % (Auto) 78.4 % Lymph % (Auto) 13.4 % Graham % (Auto) 6.7 % Eos % (Auto) 1.0 % Baso % (Auto) 0.4 % Immature Gran # (Auto) 0.01 (0.00-0.02) K/uL Neut # (Auto) 7.06 H (1.4-6.5) K/uL Lymph # (Auto) 1.21 (1.2-3.4) K/uL Graham # (Auto) 0.60 H (0.11-0.59) K/uL Eos # (Auto) 0.09 (0-0.5) K/uL Baso # (Auto) 0.04 (0-0.2) K/uL Absolute Nucleated RBC 0.04 H (0-0) K/uL Nucleated RBC % (auto) 0.4 % PT (9.0-12.0) Seconds INR (0.9-1.1) POC Sodium (135-144) mEq/L Sodium 135 L (136-145) mmol/L POC Potassium (3.3-5.0) mEq/L Potassium 3.1 L (3.5-5.1) mmol/L POC Chloride (101-112) mEq/L Chloride 100 (98-107) mmol/L Carbon Dioxide 28 (21-32) mmol/L POC Total CO2 (24-31) mEq/l Anion Gap 7.0 (3-11) POC Anion Gap (16-25) mmol/L POC BUN (7-18) mg/dl BUN 14 (7-18) mg/dl Creatinine 1.07 (0.6-1.2) mg/dl POC Creatinine (0.6-1.3) mg/dl Est Cr Clr Drug Dosing 55.4 ml/min Est GFR ( Amer) 61.8 Est GFR (Non-Af Amer) 53.3 BUN/Creatinine Ratio 13.5 (10-20) Glucose 136 H (70-99) mg/dl POC Glucose (other) (70-99) mg/dl Estimat Average Glucose mg/dl Hemoglobin A1c (4.5-5.6) % Calcium 9.5 (8.5-10.1) mg/dl POC Ioniz Calcium Liseth (1.12-1.32) mmol/l Total Bilirubin 19.8 H (0.2-1) mg/dl Direct Bilirubin 15.5 H (0-0.2) mg/dl AST 102 H (15-37) U/L ALT 160 H (12-78) U/L Alkaline Phosphatase 283 H (45-117) U/L Total Protein 8.1 (6.4-8.2) gm/dl Albumin 3.2 L (3.4-5.0) gm/dl Globulin 4.9 H (2.5-4.0) gm/dl Albumin/Globulin Ratio 0.7 L (0.9-2) Lipase 182 (73-393) U/L Urine Color [place] Urine Appearance Turbid A (Clear) Urine pH 5.5 (4.5-7.5) Ur Specific [place] 1.020 (1.000-1.030) Urine Protein 1+ H (Negative) Urine Glucose (UA) Trace H (Negative) Urine Ketones Trace H (Negative) Urine Blood 3+ H (Negative) Urine Nitrite Negative (Negative) Urine Bilirubin 3+ H (Negative) Urine Urobilinogen Negative (Negative) Ur Leukocyte Esterase 3+ H (Negative) Urine RBC 10-30 H (0-4) /hpf Urine WBC >30 H (0-5) /hpf Ur Epithelial Cells 20-30 H (0-5) /lpf Urine Bacteria 2+ H (Negative) Hyaline Casts 0-5 (0-5) /lpf Granular Casts 1-5 H (0) /lpf PG Care Time/CCT Total # of Minutes Spent Total Time Spent with Patient: Total time spent is greater than 50% in coordination of care (as documented) at patient's floor/unit and/or counseling patient:
--- NOTE | 2019-10-06 15:31 | Operative Report ---
Post Operative Report Pre & Post Diagnosis Operation Date: 10/06/19 11:10 Pre-Op Diagnosis: jaundice Post-Op Diagnosis: jaundice I identified the patient and participated in the time-out.: Yes Procedure Operation Date: 10/06/19 11:10 Actual Procedures p Endoscopic Retrograde Cholangiopancreatogram(Not Applicable) - Francis Pacheco MD Surgeon Francis Pacheco MD Flumer None Estimated Blood Loss 0 Findings See Below (CBD stricture, Sphincterotomy and stent placement) Specimens CBD cytology by brushing Description of Procedure ERCP I attest to the content of the Intraoperative Record and any orders documented therein. Any exceptions are noted below.
[2019-10-06] MEDS ORDERED: GLUCAGON FOR INJ 1 MG VIAL ONE (15:48)
--- NOTE | 2019-10-06 15:57 | GI REPORT ---
Patient Name: Shelia Alvarez Procedure Date: 10/06/2019 2:37 PM Date of : 1950 Admit Type: Inpatient Age: 68 Gender: Female Attending MD: Francis Pacheco MD Procedure: ERCP Providers: Francis Pacheco MD Referring MD: Ender Grider Indications: Biliary dilation on Computed Tomogram Scan, Pancreatic mass on Computed Tomogram Scan, Jaundice, Elevated liver enzymes Medicines: General Anesthesia Complications: No immediate complications. Estimated Blood Loss: Estimated blood loss: none. Procedure: Pre-Anesthesia Assessment: - Prior to the procedure, a History and Physical was performed, and patient medications, allergies and sensitivities were reviewed. The patient's tolerance of previous anesthesia was reviewed. - The risks and benefits of the procedure and the sedation options and risks were discussed with the patient. All questions were answered and informed consent was obtained. - Patient identification and proposed procedure were verified prior to the procedure by the physician and the nurse. The procedure was verified in the procedure room. - Pre-procedure physical examination revealed no contraindications to sedation. After obtaining informed consent, the scope was passed under direct vision. Throughout the procedure, the patient's blood pressure, pulse, and oxygen saturations were monitored continuously. The scope was introduced through the mouth, and advanced to the duodenum and used to inject contrast into the bile duct. The ERCP was accomplished without difficulty. The patient tolerated the procedure well. Findings: The health educator film was normal. The esophagus was successfully intubated under direct vision. The scope was advanced to a normal major papilla in the descending duodenum without detailed examination of the pharynx, larynx and associated structures, and upper GI tract. The upper GI tract was grossly normal. A 0.035 inch straight standard wire was passed into the biliary tree. The Fusion OMNI sphincterotome was passed over the guidewire and the bile duct was then deeply cannulated. Contrast was injected. I personally interpreted the bile duct images. Ductal flow of contrast was adequate. Image quality was adequate. Contrast extended to the main bile duct. The middle and upper third of the main bile duct and left and right hepatic ducts and all intrahepatic branches were markedly dilated, secondary to a distal CBD stricture. The largest diameter was 12 mm. The lower third of the main bile duct contained a single severe stenosis 20 mm in length. Biliary sphincterotomy was made with a monofilament traction (standard) sphincterotome using ERBE electrocautery. There was no post-sphincterotomy bleeding. The biliary tree was swept with an 11.5 mm balloon starting at the bifurcation. Sludge was swept from the duct. Cells for cytology were obtained by brushing in the lower third of the main bile duct. Verification of patient identification for the specimen was done by the physician and nurse using the patient's name and date. One 10 Fr by 7 cm plastic biliary stent with a single external pigtail and a single internal pigtail was placed into the common bile duct. Bile flowed through the stent. The stent was in good position. Indomethacin 100 mg was given via suppository to decrease the risk of post-ERCP pancreatitis (PEP). Impression: - A single severe biliary stricture was found in the lower third of the main bile duct with upstream biliary ductal dilation. The stricture was malignant appearing. Cells for cytology obtained by brushing. - A biliary sphincterotomy was performed. - One plastic biliary stent was placed into the common bile duct. Recommendation: - Return patient to hospital bro for ongoing care. - Await cytology results. - Perform an upper endoscopic ultrasound (UEUS) for FNA of the pancreatic head mass on Monday 10/08 at 11:30 at [facility]. - Cipro (ciprofloxacin) 500 mg PO BID for 5 days. - Can discharge the patient tomorrow. - Clear liquids today and advance the diet as tolerated tomorrow. - Avoid NSAIDs. - Return to referring physician. Francis Pacheco MD 10/06/2019 3:56:50 PM This report has been signed electronically. Note Initiated On: 10/06/2019 2:37 PM Number of Addenda: 0 I attest to the content of the Intraoperative Record and orders documented therein, exceptions below {[id number]}
[2019-10-06] MEDS ORDERED: ePHEDrine sulfate 50 MG/ML AMP IV PRN (15:59)
[2019-10-06] MEDS ORDERED: ATROPINE SULFATE 0.1 MG/ML 10ML SYR IV PRN (15:59)
[2019-10-06] MEDS ORDERED: ONDANSETRON INJ 2 MG/ML 2 ML VIAL IV PRN (15:59)
[2019-10-06] MEDS ORDERED: fentaNYL citrate 100 MCG/2 ML VIAL IV PRN (15:59)
[2019-10-06] MEDS ORDERED: PROMETHAZINE HCL 6.25 MG in SODIUM CHLORIDE 0.9% 50 ML IV PRN (15:59)
--- NOTE | 2019-10-06 16:06 | Fluoroscopy Report ---
[place] ERCP biliary ductal CLINICAL HISTORY: ERCP IN OR COMPARISON STUDY: CT of the abdomen and pelvis October 05, 2019. FLUOROSCOPY TIME: 3 minutes and 21 seconds. FLUOROSCOPIC IMAGES: 7 FINDINGS: Fluoroscopy was provided during ERCP. These images demonstrate cannulation of the common bi le duct with biliary ductal dilatation and abrupt caliber change of the mid common bile duct as shown on CT. Subsequent images demonstrate placement of a biliary stent which appears appropriately positi oned. IMPRESSION: Fluoroscopy provided for ERCP with placement of a biliary stent. ACT 112: Negative or not required by law. Electronically signed by: Rodger Campos M.D. 10/06/2019 4:05 PM
--- NOTE | 2019-10-06 16:14 | Anesthesiology Progress Note ---
Date of Service October 06, 2019 Anesthesia Post Procedure Vital Signs Vital Signs: Temp Pulse Pulse Pulse Resp BP BP 10/06/19 15:55 80 16 10/06/19 15:45 83 14 10/06/19 15:39 97.2 F L 87 14 10/06/19 14:15 98.1 F 73 20 149/77 H 10/06/19 11:15 97.7 F 72 18 145/77 H 10/06/19 10:46 97.9 F 67 18 116/73 10/06/19 06:49 98.2 F 78 20 138/75 10/05/19 23:54 98.2 F 76 20 134/71 10/05/19 19:15 98.4 F 88 16 163/84 H 10/05/19 19:05 84 20 145/82 H 10/05/19 18:18 86 20 177/88 H 10/05/19 17:08 74 157/89 H BP Pulse Ox 10/06/19 15:55 135/76 95 10/06/19 15:45 142/85 H 100 10/06/19 15:39 152/87 H 100 10/06/19 14:15 94 10/06/19 11:15 91 10/06/19 10:46 93 10/06/19 06:49 93 10/05/19 23:54 93 10/05/19 19:15 97 10/05/19 19:05 97 10/05/19 18:18 96 10/05/19 17:08 95 Transfer of Care Handoff Completed per policy Notes Mental Status: alert / awake / arousable and participated in evaluation Patient Amnestic to Procedure: Yes Nausea / Vomiting: adequately controlled Pain: adequately controlled Airway Patency, RR, SpO2: stable & adequate BP & HR: stable & adequate Hydration State: stable & adequate Anesthetic Complications: no major complications apparent and Pt Satisfied with anesthetic care
[2019-10-06] MEDS: CIPROFLOXACIN 500 MG TAB PO SCH (17:30)
[2019-10-06] MEDS: ONDANSETRON INJ 2 MG/ML 2 ML VIAL IV PRN (23:30)
[2019-10-07] MEDS: ONDANSETRON INJ 2 MG/ML 2 ML VIAL IV PRN (03:22)
[2019-10-07 07:05] VITALS: TEMP 98.1; O2SAT 94
[2019-10-07 07:12] LABS: Hematocrit (blood only) 38.8 % (37-47); Hemoglobin 13.2 g/dL (12.0-16.0); Mean Corpuscular Volume 94.2 fL (80-100); Mean Platelet Volume 10.1 fL (7.4-10.4); Platelet Count 392 K/uL (130-400); RDW Coefficient of Variation 15.2 % (11.5-14.5); RDW Standard Deviation 51.8 fL (36.4-46.3); Red Blood Count 4.12 M/uL (4.2-5.4); White Blood Count 11.76 K/uL (4.8-10.8)
[2019-10-07 07:59] LABS: Alanine Aminotransferase 139 U/L (12-78); Albumin Level 2.6 gm/dl (3.4-5.0); Alkaline Phosphatase 265 U/L (45-117); Aspartate Aminotransferase 91 U/L (15-37); Bilirubin,Total 20.5 mg/dl (0.2-1); Blood Urea Nitrogen 12 mg/dl (7-18); Calcium 9.3 mg/dl (8.5-10.1); Carbon Dioxide 27 mmol/L (21-32); Chloride 104 mmol/L (98-107); Glucose 181 mg/dl (70-99); Magnesium 2.2 mg/dl (1.8-2.4); Potassium 3.7 mmol/L (3.5-5.1); Sodium 136 mmol/L (136-145)
[2019-10-07] MEDS: MULTIVITAMIN TAB PO SCH (08:42)
[2019-10-07] MEDS: CIPROFLOXACIN 500 MG TAB PO SCH (08:42)
[2019-10-07 08:52] LABS: BUN Creatinine Ratio 12.1 (10-20); Calcium 9.6 mg/dl (8.5-10.1); Creatinine Clr Calc Pharmacy 59.9 ml/min; Est GFR (African American) 67.9; Est GFR (Non-African American) 58.6; Potassium 3.7 mmol/L (3.5-5.1)
[2019-10-07 14:38] VITALS: BP 149/77; PULSE 76
--- NOTE | 2019-10-07 15:29 | Discharge Summary ---
Date of Service October 07, 2019 Admission HPI Per Admitting Provider This is a 68 yo F without significant PMhx who presents due to recent symptoms including nausea and vomiting which began last Friday through Friday, then appeared to resolve which was then followed by progressive jaundice. The patient notes she called and scheduled an appointment with Dr. Lockwood in [place] for new patient, but would not be able to see her for the next 6 months. She presented to the ER today due to worsening jaundice. She denies any abdominal pain, nausea or vomiting at this time. Patient admits to decreased appetite over the last 2 weeks, she has had approximately 7 pounds of weight loss over the last 1 week which she believes is secondary to poor appetite/nausea and vomiting. She notes her urine is very dark, denies dysuria, hematuria. Of note the patient mentions that her sister who is currently 72 is being followed by [facility] for pancreatic issues which she was only diagnosed within this past month. Her daughter is present at bedside. Patient with transaminitis with total bilirubin = 19.8, AST 102, ALT 160, alk phos 283. Admission Exam Per Admitting Provider General: awake, alert, no apparent distress, + severe jaundice Head: Normocephalic, atraumatic ENT: PERRL, EOMI, no pharyngeal exudate, mucous membranes moist Chest: Clear to auscultation, on room air, no adventitious breath sounds Cardiac: Regular rate and rhythm, no murmur, no JVD, normal peripheral pulses, good capillary refill Abdominal: NABS x 4 quadrants, soft, nondistended, nontender to palpation, no re bound, guarding or tenderness Extremities: Normal inspection, no peripheral edema or erythema, calfs nontender to palpation Psych: Normal mood and affect Neuro: AAO x 3, strength intact bilaterally and related 5/5, no motor deficits, speech is clear, no peripheral sensory deficits Skin: no rash or erythema Principal Diagnosis Pancreatic Cancer Discharge Exam General: Resting comfortably HEENT: NC/AT; PERRLA with EOMI; [place] conjunctiva, MMM. No erythema of posterior pharynx Neck: Supple and nontender Cardiac: RRR Lungs: CTA bilaterally Abdomen: Bowel normoactive X 4; Nontender to palpation Extremities: Warm. No edema present Neuro: No focal weakness Skin: Diffuse jaundice; scleral icterus bilaterally. Discharge Data Allergies Allergy/AdvReac Type Severity Reaction Status Date / Time No Known Allergies Allergy Unverified 10/11/19 11:02 Consultations 10/05/19 17:32 ED Decision to Admit Stat 10/05/19 17:52 Consult Gastroenterology Routine 10/05/19 17:53 Consult Case Management - Discharge Planning Routine Procedures Performed Operation Date: 10/06/19 11:10 Actual Procedures p Endoscopic Retrograde Cholangiopancreatogram(Not Applicable) - Francis Pacheco MD Ordered Studies 10/05/19 15:32 CT abd pelvis IV con only Stat 10/06/19 14:00 [place] ERCP biliary ductal Routine Hospital Course (1) Pancreatic mass: Presented with jaundice in setting of pancreatic mass noted on CT scan - related to pancreatic cancer. CT A/P --> mass within the pancreatic head and neck, measuring approximately 4 x 2.9 cm, with pancreatic and biliary ductal dilatation highly suggestive of pancreatic adenocarcinoma. Several mildly enlarged peripancreatic/portacaval lymph nodes that measure up to 2.1 x 1.5 cm and are suspicious for cristóbal spread of disease. 1.3 cm ill-defined nodule along the left lateral aspect of the superior mesenteric vein may reflect an enlarged node or tumor implant. Mild narrowing of the portosplenic confluence and main portal vein which is patent. T bili was 19 on admission, now increased to 20. AST, ALT and Alk phos also elevated. Script provided for lab work on Friday. GI consulted, s/p ERCP on 10/06 - had single severe biliary stricture in lower third main bile duct with ductal dilatation, cytology +adenocarcinoma. CBD stent was placed. Plan EUS for FNA on Friday at 11:30. Will arrange outpatient oncology appt. Script provided for Zofran prn N/V -- had episode of N/V following lunch on day of discharge. No evidence of post ERCP pancreatitis. Cipro 500 mg BID x 5 days. (2) Liver lesion: CT A/P showed 9 mm hypodense lateral segment hepatic lesion. This lesion is indeterminate although probably benign. F/u with oncology for staging purposes. (3) Biliary obstruction: As noted above, in setting of pancreatic mass. (4) Transaminitis: As noted above. (5) Prolonged INR: INR was 1.5; received Vit K 5 mg IV x 1 dose pre operatively. Possibly related to underlying liver dysfunction vs. malnutrition in setting of limited diet and poor PO intake. (6) UTI (urinary tract infection): Positive u/a on admission, UC showed Lactobacillus species and Gardnerella-like bacilli. On Cipro as noted above. (7) Obesity (BMI 30.0-34.9): Recent weight loss of 7 lbs in past week due to poor oral intake with n/v. Reports was recently eliminating lunch and replaced that meal with a green drink (blended kale, cucumber, spinach, citrus, etc.) (8) Hypokalemia: Replaced electrolytes prn. (9) DVT prophylaxis: TEDs; held pharmacologic ppx for procedure. Discharged to home on 10/07/19. Will f/u for outpatient EUS tomorrow. Total Time Total Time Spent Total Time Spent (In Minutes): >30 minutes Total Time Includes: Examination of the Patient, Discharge Planning, Medication Reconciliation, Communication With Other Providers and Other Discharge Plan Discharge Items Patient Disposition: Home - Self-Care Reason For Visit: PANCREATIC MASS Discharge Diagnosis: Pancreatic Cancer Goals: You have been hospitalized for an acute medical problem. During your stay at [facility], we have made an effort to correct the problem that brought you to the hospital while keeping you as comfortable as possible. Medications were used to bring your condition under control and your discharge instructions will include directions for any medications you should take after leaving the hospital. Please make sure you see your Primary Care Provider as part of your follow up plan. Activity: As commented below Exercise/Sports: Wait until after follow-up appointment Non-emergency contact: Primary Care Provider, Investigative Research Specialist and Oncologist Call non-emergency contact if: you have any medication questions, your symptoms worsen, your pain is not controlled, your pain is worsening, your pain is unusual for you, your pain is concerning for you and you have a fever Follow-up/Referrals: Shelia Alva PA-C [Physician Stamper Blocker] - 10/11/19 10:45 am (Please, follow up at [facility] [place] Office with Dr. Campos's associate, Shelia Alva PA-C, on FridayOctober 11 at 10:45 am. *If you have any questions, call the office at [phone].) Elan Kuo [Physician] - (Please, follow up at [facility] with Dr. Elan Kuo or Dr. Seamus Cordova. *A nurse from this office will call you with the appointment information. The office is located in the REAR of this hospital building. You will park BEHIND the hospital in [address] and enter via [facility]. If you have any questions, call their office at [phone].) Diet: Low Fat Diet Comment: Nothing by mouth after midnight this evening for procedure. Addtl Attending Provider Instructions: 1. Pancreatic Cancer * Please follow up for planned EUS with fine needle aspiration biopsy tomorrow at 11:30 am. * Script was provided for lab work on Friday to monitor liver function tests. Results will be faxed to your primary care provider and securities dealer. * You will need to establish care with an oncologist -- this appointment will be scheduled by our nurse navigator. * Please take Ciprofloxacin 500 mg twice daily to complete a 5 day course. * Please take Tylenol 650 mg every 6 hours for pain control; avoid NSAIDs (such as Ibuprofen, Motrin, Aleve, etc) as they can increase bleeding risk. * Please take Zofran 4 mg every 6 hours as needed for nausea/vomiting. 2. Please follow up with PCP in 1-2 weeks to discuss new diagnosis/this hospital admission. Pending Studies at Discharge: No Stand-Alone Forms: [facility] [employer] Medications and DC Order Prescriptions: New ondansetron HCl [Zofran] 4 mg tablet 4 mg PO Q6H PRN (Reason: nausea and vomiting) Qty: 10 RF: 0 Continued multivitamin Tablet 1 tab PO QAM RF: 0 Discharge Orders: Discharge Order (Routine); Ordered 10/07/19 Ordered By: Mitali Skinner/Other Patient Handouts: Diabetes Resources, Diabetes Healthy Meals, Diabetes Carbs, Diabetes Exercise Benefits, A1C Admission Data Admit Date/Time: 10/05/19 17:52 Attending Provider: Ender Ordoñez Admit Provider: Ye Downing Primary Care Provider: uSgar Campos Other Providers: Ye Downing ; Bong Baugh Other Interventions: Discharge Summary Assessment (RN) Last Done: 10/07/19 14:36 DC Date/Time DO NOT enter until pt leaves facility: 10/07/19 15:32 Supervising Physician Co-Signing Physician Notes Attending Attestation and Discharge Note: Pt seen/examined, chart reviewed, discharge care plan d/w BA Alvarez. I agree w/ the solomon components of her discharge documentation. 68yo female with pancreatic mass resulting in biliary obstruction s/p ERCP by [facility] with placement of CBD stent. During the ERCP brushings were sent for definitive diagnosis but pancreatic cancer likely. Post-ERCP patient remained hemodynamically stable. Ms Alvarez will follow-up 24 hours after discharge for outpatient EUS at [facility]. Discharge t. bili was about 20. It may take several days-weeks for jaundice to improve even with biliary stent in place. Repeat LFTs within 5 days post-d/c advised. Discharge exam: gen - NAD, severe jaundice skin - jaundice from head to feet heart - RRR, s1 s2 lungs - CTA b/l abd - soft ND BS+ ext - no edema Ender Ordoñez MD
== END 2019-10-07 15:32 | disposition home or self-care (01) | DRG 435 ==
LOC: ED 14:28 → 4W 17:52 → SUATTDRO 17:52 → 4W 19:05

== ENCOUNTER 2020-03-17 13:46 | Inpatient (IN) ==
[2020-03-17] MEDS ORDERED: SODIUM CHLORIDE 0.9% 1000ML 1,000 ML IV SCH (14:15)
[2020-03-17 14:17] LABS: Hematocrit (blood only) 30.5 % (37-47); Hemoglobin 10.2 g/dL (12.0-16.0); Mean Corpuscular Hemoglobin 34.2 pg (25-34); Mean Corpuscular Hgb Conc 33.4 g/dL (32-36); Mean Corpuscular Volume 102.3 fL (80-100); Mean Platelet Volume 10.4 fL (7.4-10.4); Platelet Count 146 K/uL (130-400); RDW Coefficient of Variation 16.6 % (11.5-14.5); RDW Standard Deviation 62.1 fL (36.4-46.3); Red Blood Count 2.98 M/uL (4.2-5.4); White Blood Count 18.68 K/uL (4.8-10.8)
--- NOTE | 2020-03-17 14:24 | XRay Report ---
XR chest 1V portable CLINICAL HISTORY: SOB, syncope COMPARISON STUDY: No previous studies for comparison. FINDINGS: There is a right-sided A-Port catheter. The heart is normal in size. There is no failure. T here is no focal pulmonary consolidation. There are no pleural effusions.[ IMPRESSION: No active disease in the chest. ACT 112: Negative or not required by law. Electronically signed by: Tyler Zaragoza M.D. 03/17/2020 2:22 PM
[2020-03-17 14:26] LABS: Alanine Aminotransferase 44 U/L (12-78); Aspartate Aminotransferase 36 U/L (15-37); BUN Creatinine Ratio 30.7 (10-20); Blood Urea Nitrogen 28 mg/dl (7-18); Calcium 8.5 mg/dl (8.5-10.1); Carbon Dioxide 27 mmol/L (21-32); Chloride 103 mmol/L (98-107); Creatinine Clr Calc Pharmacy 58.2 ml/min; Est GFR (African American) 75.6; Est GFR (Non-African American) 65.2; Glucose 241 mg/dl (70-99); Magnesium 2.1 mg/dl (1.8-2.4); Potassium 3.2 mmol/L (3.5-5.1); Sodium 137 mmol/L (136-145)
[2020-03-17 14:31] LABS: Albumin Globulin Ratio 1.1 (0.9-2); Alkaline Phosphatase 133 U/L (45-117); Bilirubin,Total 0.4 mg/dl (0.2-1); Globulin 2.7 gm/dl (2.5-4.0); Total Protein 5.7 gm/dl (6.4-8.2); Troponin I < 0.015 ng/ml (0-0.045)
[2020-03-17] MEDS ORDERED: OPTIRAY 320 125ml IV PRN (14:38)
[2020-03-17 14:49] LABS: Basophils # (auto) 0.01 K/uL (0-0.2); Basophils % (auto) 0.1 %; Immature Granulocytes # (auto) 0.08 K/uL (0.00-0.02); Immature Granulocytes % (auto) 0.4 %; Monocytes # (auto) 0.11 K/uL (0.11-0.59); Monocytes % (auto) 0.6 %; Neutrophils # (auto) 15.68 K/uL (1.4-6.5); Neutrophils % (auto) 83.9 %
--- NOTE | 2020-03-17 15:28 | CT Scan Report ---
CT ANGIOGRAPHY OF THE CHEST, PULMONARY EMBOLUS PROTOCOL CLINICAL HISTORY: Shortness of breath. Evaluate for pulmonary embolus. COMPARISON STUDY: Chest radiograph March 17, 2020. TECHNIQUE: Following IV administration of 115 mL of Optiray-320, helical axial images of the chest we re obtained utilizing the pulmonary embolus protocol. Maximal intensity projections and sagittal and coronal reformats were viewed on an independent 3D workstation. IV contrast was administered withou t complication. Automated exposure control was utilized for the study. A dose lowering technique wa s utilized adhering to the principles of ALARA. CT DOSE: 402.95 mGy.cm FINDINGS: A right internal jugular Kutibp-f-Cget is in place. Note is made of extensive bilateral pu lmonary emboli, including a saddle pulmonary embolus. Extensive thrombus is noted within the right an d left pulmonary arteries. Emboli within the lingular and left lower lobe pulmonary arteries are occl usive. Right ventricle is dilated. There is straightening of the interventricular septum. Heart is mo derately enlarged. There is reflux of contrast into the IVC and hepatic veins which are dilated. The SVC appears dilated. No enlarged thoracic lymph nodes are present. There is no pulmonary infarct. No pneumothorax or pleural effusion is noted. Findings suggesting mild pulmonary edema. No suspicious le sions within the bony thorax are noted. Visualized portions of the upper abdomen demonstrate pneumobi jp. The liver appears slightly heterogeneous although this could be technical. IMPRESSION: 1. Extensive bilateral pulmonary emboli with CT findings suggestive of right heart strain. Findings d iscussed with Dr. Ibrahim at time of dictation. 2. Mild pulmonary edema. ACT 112: Negative or not required by law. Electronically signed by: Rodger Campos M.D. 03/17/2020 3:27 PM
[2020-03-17 15:38] LABS: INR 1.3 (0.9-1.1); Partial Thromboplastin Ratio 0.8; Partial Thromboplastin Time 21.9 Seconds (21.0-31.0); Prothrombin Time 13.6 Seconds (9.0-12.0)
[2020-03-17] MEDS ORDERED: HEPARIN SODIUM/DEXTROSE 25,000 UNITS/500 ML BAG IV SCH (15:45)
[2020-03-17] MEDS ORDERED: HEPARIN SOD (PORCINE) 1000 UNIT/ML 10 ML VIAL ONE (15:53)
--- NOTE | 2020-03-17 16:54 | History & Physical Report ---
Date of Service March 17, 2020 Assessment & Plan (1) Bilateral pulmonary embolism: Not reported as a saddle embolus on radiology report however part of the clot on left side does appear to saddle the bifurcation of the main pulmonary artery. Discussed care with Dr Garcia (ICU) for possible transfer to tertiary care center for catheter-directed tPA however given hemodynamic and O2 stability feel she can be managed in the ICU here on heparin IV drip. Admit to ICU, consult board worker. Continue IV heparin drip with bolus as started in the ER. (2) Pancreatic adenocarcinoma: Presented to initially here in September with nausea, vomiting and progr essive jaundice and was diagnosed with pancreatic mass on CT. She required a biliary stent to be placed on that admission. Subsequent brushing confirmed pancreatic adenocarcinoma. No notes available on admission from oncology. Patient reports no longer on chemotherapy or dexamethasone. Follows with Dr Cordova locally. Planning on following up at [place] for possible surgery. (3) Type 2 diabetes mellitus: HbA1C 6.5 in September 2019. On no routine medication for this. Glucose 241 on admission likely somewhat stress induced. Although possibly progressing due to pancreatic adenocarinoma as above. Consult pharmacy for glycemic control with basal bolus insulin while in ICU. Admission and Anticipated Discharge Date Admission Date: 03/17/2020 History of Present Illness Chief Complaint: S/P cardiac arrest Primary Care Provider: Sugar Campos MD Shelia Alvarez is a 69 year old female with pancreatic cancer undergoing chemotherapy who presented to the ER from the cancer centre after a Code Blue. She noted feeling well earlier today with no plans on chemotherapy however she was at the cancer centre for ?Neulasta injection but never actually received any treatment today. She went into the elevator and become suddenly short of breath. The next thing she remembers is waking up in the emergency room. As per report with patient, a code blue in the cancer center after pulse was not felt, found unconscious in the elevator. She received approximately 30 seconds of chest compressions and resumed responsiveness without any defibrillation. Initial vital signs after presumed cardiac arrest were normal and she was not requiring any oxygen but after being transported to the Emergency room her saturations were 76% on room air. In hindsight she does note she woke up this morning with her left leg much larger than the right however she was in her usual health yesterday. In the ER CT for PE confirmed massive bilateral PEs. She was started on a standard heparin IV drip with bolus. Initial troponin negative but right heart strain noted on CT. Discussed care with her daughter (Omaira Alvarez, phone no. [phone]) who was present in the room with her. We discussed possible transfer to tertiary care center but she elected to be admitted here and be treated with heparin IV initially. Allergies Allergy/AdvReac Type Severity Reaction Status Date / Time No Known Allergies Allergy Unverified 03/17/20 15:05 Home Medications Home Medications Medication Instructions Recorded Confirmed Type multivitamin 1 tab PO QAM 10/05/19 03/17/20 History ondansetron HCl [Zofran] 4 mg PO Q6H PRN #10 tab 10/07/19 03/17/20 Rx Chemotherapy 1 unit IV UD 03/17/20 03/17/20 History dexamethasone 12 mg PO UD 03/17/20 03/17/20 History potassium chloride 20 meq PO QAM 03/17/20 03/17/20 History Past Med/Surg History Medical History (Updated 03/17/20 @ 22:35 by Ender Johnson MD) History of biliary stent insertion Pancreatic adenocarcinoma Type 2 diabetes mellitus Surgical History (Updated 02/28/20 @ 13:30 by Sugar Campos MD) H/O tubal ligation Family History (Updated 10/11/19 @ 13:40 by Jazz Bhandari) Sister Breast cancer Cancer Father Depression Heart disease Hypertension Mother Kidney disease Denies family history of Ovarian cancer Prostate cancer Colorectal cancer Social History (Updated 10/11/19 @ 13:41 by Jazz Bhandari) Preferred Language: Urdu Communication Ability: Effective General Road Supervisor Required: No Beliefs That Will Affect Care: None marital status: Current Living Situation: Spouse and Family current occupational status: retired Other Information That Helps Us Care for You: No Feels Safe at Home: Yes Safety Concerns: Feels Safe At This Time Smoking Status: Never smoker Second Hand Exposure: No ; Hx Alcohol Use: No Hx Substance Use: No Dental Care, Regularly: No Physical Activity Frequency: Does not Exercise Review of Systems Review of Systems: All systems reviewed & are unremarkable except as noted in HPI & below Physical Exam Constitutional: well developed and well nourished; no acute distress Eyes: PERRL, conjunctivae normal, anicteric sclerae ENMT: external ear and nose normal, oropharynx normal Neck: trachea midline, no thyromegaly Respiratory: normal respiratory effort, lungs clear to auscultation Cardiovascular: Rate/Rhythm: regular rhythm and + tachycardic Heart Sounds: no murmur Extremities: normal capillary refill, + calf tenderness (left calf swelling > 2cm than right) and + pedal edema (1+ b/l equal) Gastrointestinal (Abdomen): normal bowel sounds, soft, nontender, no hepatosplenomegaly Musculoskeletal: no cyanosis or clubbing, extremities motor strength 5/5 Skin: no rashes, warm and dry Neurologic: moves all extremities and awake; no focal motor deficits and not confused Speech / Cognition: normal speech Motor/Sensory: no tremor, no pronator drift and no sensory deficit Psychiatric: A+Ox3, euthymic affect Lymphatic: no cervical or axillary lymphadenopathy Results & Data Results & Data ([facility]) Vital Signs (Past 12 Hours) Vital Signs Temp Pulse Resp BP Pulse Ox 03/17/20 16:40 96 H 18 94 03/17/20 16:30 97 H 14 131/86 93 03/17/20 16:20 99 H 17 90 03/17/20 16:15 98 H 14 141/84 H 95 03/17/20 16:00 96 H 15 129/84 95 03/17/20 15:45 93 H 16 139/85 94 03/17/20 15:30 93 H 14 126/80 93 03/17/20 15:25 91 H 14 122/72 92 03/17/20 15:00 93 H 15 124/80 96 03/17/20 14:45 90 14 117/92 96 03/17/20 14:15 93 H 19 129/82 99 03/17/20 14:10 99 03/17/20 14:08 36.9 C 87 14 110/73 99 03/17/20 14:00 86 14 119/[address] ANGIOGRAPHY OF THE CHEST, PULMONARY EMBOLUS PROTOCOL CLINICAL HISTORY: Shortness of breath. Evaluate for pulmonary embolus. COMPARISON STUDY: Chest radiograph March 17, 2020. TECHNIQUE: Following IV administration of 115 mL of Optiray-320, helical axial images of the chest were obtained utilizing the pulmonary embolus protocol. Maximal intensity projections and sagittal and coronal reformats were viewed on an independent 3D workstation. IV contrast was administered without complication. Automated exposure control was utilized for the study. A dose lowering technique was utilized adhering to the principles of ALARA. CT DOSE: 402.95 mGy.cm FINDINGS: A right internal jugular Pebkil-[id number]-Jvxp is in place. Note is made of extensive bilateral pulmonary emboli, including a saddle pulmonary embolus. Extensive thrombus is noted within the right and left pulmonary arteries. Emboli within the lingular and left lower lobe pulmonary arteries are occlusive. Right ventricle is dilated. There is straightening of the interventricular septum. Heart is moderately enlarged. There is reflux of contrast into the IVC and hepatic veins which are dilated. The SVC appears dilated. No enlarged thoracic lymph nodes are present. There is no pulmonary infarct. No pneumothorax or pleural effusion is noted. Findings suggesting mild pulmonary edema. No suspicious lesions within the bony thorax are noted. Visualized portions of the upper abdomen demonstrate pneumobilia. The liver appears slightly heterogeneous although this could be technical. IMPRESSION: 1. Extensive bilateral pulmonary emboli with CT findings suggestive of right heart strain. Findings discussed with Dr. Ibrahim at time of dictation. 2. Mild pulmonary edema. ECG Indication: other (cardiac arrest) Rate (beats per minute): 88 Rhythm: normal sinus Findings: + RBBB (incomplete) Comparison ECG Date: from (03/17/2020) Change: the following changes noted (incomplete RBBB is new) Code Status & VTE Plan Code Status Full as discussed with the patient VTE Prophylaxis Plan VTE Prophylaxis will be ordered: Yes PG Care Time/CCT Total # of Minutes Spent Total Time Spent with Patient: Total time spent is greater than 50% in coordination of care (as documented) at patient's floor/unit and/or counseling patient: Coding Level of Care Code 97138 Initial Inpt Care Lvl 3 Diagnoses Bilateral pulmonary embolism I26.99 Pancreatic adenocarcinoma C25.9 Type 2 diabetes mellitus E11.9
--- NOTE | 2020-03-17 17:10 | Electrocardiogram Report ---
Test Reason : Blood Pressure : / mmHG Vent. Rate : 088 BPM Atrial Rate : 088 BPM P-R Int : 192 ms QRS Dur : 112 ms QT Int : 394 ms P-R-T Axes : 071 029 067 degrees QTc Int : 476 ms Normal sinus rhythm Low voltage QRS Incomplete right bundle branch block Borderline ECG When compared with ECG of 18-DEC-2004 23:46, Incomplete right bundle branch block is now Present QT has lengthened Confirmed by Nicolas Gaytan ([id number]) on 03/17/2020 5:09:39 PM Referred By: REFERRED SELF Confirmed By:Nicolas Gaytan
[2020-03-17] MEDS ORDERED: ICU PROTOCOL FOR HYPERGLYCEMIA PRN ×2 (18:37→19:44)
[2020-03-17] MEDS ORDERED: PHARMACY GLYCEMIC MGMT CONSULT PRN (19:35)
--- NOTE | 2020-03-17 19:49 | Critical Care Consultation ---
Date of Consultation March 17, 2020 Assessment & Plan (1) Admitted to intensive care unit: Reason Critically Ill: 69-year-old female status post cardiopulmonary arrest secondary to massive PE currently on heparin drip requiring and close hemodynamic monitoring. NEURO - * CAM ICU: NEGATIVE CARDIAC/VASCULAR - * Patient made a "CODE BLUE" in the outpatient elevator and received approximately 30 seconds of chest compressions after collapse. Patient was reportedly awake, alert, and oriented shortly after the compressions. * No significant EKG findings appreciated. * Troponin not elevated. * BNP not ordered at this time. Will check, however question utility as we are aware of the underlying diagnosis of massive PE. * A.m. echo. * Heart strain noted on CT. * EKG: NSR@88bpm, No ST/T-wave changes. QTc 476 ms. * Monitor on telemetry. RESPIRATORY - * Massive pulmonary embolism with saddle component: * Resulting in cardiopulmonary arrest with need for CPR. * CTA confirms. * Right heart strain noted. * Requiring 8 L oxygen mask. * Patient initially declined the idea of transfer as she was reportedly doing well. * Will monitor closely for the the need for TPA administration, however would be cautious as the patient is at high risk for bleeding given her malignancy, recent stent placements, and port placement. * Communicated with pharmacy regarding my intention for half dose TPA followed by drip if need be. GI/NUTRITION - * N.p.o. at this time RENAL/LYTES - * Hypokalemia: * Trend labs. Replace appropriately. * Will hold on IV fluid and attempt to not overload the patient resulting in increasing preload and subsequent cardiac strain. - * Dave in place - Strict I&Os. ENDO - * DMII * BSGs per unit protocol. ISS --> gtt per unit policy. HEME/ONC - * Currently being treated with chemotherapy for pancreatic cancer. * Recently had common bile duct stenting x2. * Monitor for s/s bleeding in the setting of Heparin gtt. * Consider TPA infusion if patient clinically decompensates. ID - * No concern for infectious contribution at this time. LINES/IV ACCESS - * Dual port in the RIGHT sided chest. DVT PROPHYLAXIS - * Heparin gtt * SCDs I have personally spent 65 minutes of critical care time in the direct management of this patient. This is a life/limb threatening event. This includes time spent evaluating patient, direct bedside care, chart review, placing orders, interpretation of diagnostic studies, discussion with consultants, patient, and family members, as well as other required patient management activities. This time is exclusive of all separately billable procedures, and teaching time and separate from and in addition to any other critical care service time. Thank you for allowing us to participate in the care of this patient. Please refer to my attending physician's documentation for any further recommendations. (2) Cardiac arrest: (3) Acute massive pulmonary embolism: (4) Saddle pulmonary embolus: (5) Pancreatic adenocarcinoma: (6) Bilateral pulmonary embolism: (7) Type 2 diabetes mellitus: (8) Liver lesion: (9) Pancreatic mass: History of Present Illness Attending Physician: Ender Johnson MD History of Present Illness Patient is an unfortunate 69-year-old female with a recent past medical history of pancreatic cancer diagnosed in September 2019. She currently is undergoing chemotherapy treatments and her last treatment was at the beginning of the week. Earlier this afternoon, she was at the [facility] and when exiting the building in the elevator, the patient reports having an abrupt onset of shortness of breath and the next thing she remembers is being in the emergency department. Bystanders report that patient was pulseless. She received 30 seconds of high-quality CPR. Upon arrival of [employer], the patient was awake, alert, and oriented. She was taken to the emergency department where she was found to have oxygen saturations in the mid 70s on room air. She was placed on 8 L oxygen mask. CTA demonstrates massive pulmonary emboli with saddle component and right-sided heart strain. Troponin was not elevated. Discussion was held regarding TPA administration. Initially, concerns were for potential for bleeding in the individual who is undergone recent common bile duct stenting x2, RIGHT-sided port placement, as well as concerns for low platelet count in the past. Based on these decisions, the patient was placed on heparin after received a bolus. She was brought to the ICU for further evaluation management. Upon my assessment of the patient in the ICU, the patient is awake, alert, and oriented. She reports some mild discomfort in her central chest which she reports she has had previously. She denies feeling short of breath at this time despite being on 10 L oxygen mask. Her oxygen saturations are in the low 90s. Heart rate is in the 1 teens. Clinically, on exam, patient has no focal findings. She reports that she currently follows with [facility] for her cancer treatments. She denies any recent travel. No exposure to COVID positive patients. No fevers. No upper respiratory symptoms. No recent COVID testing. Patient currently denies any headaches, dizziness, lightheadedness, palpitations, pleuritic pain, hemoptysis, nausea, vomiting, abdominal pain, or numbness/weakness to her extremities. Allergies Allergy/AdvReac Type Severity Reaction Status Date / Time No Known Allergies Allergy Unverified 03/17/20 15:05 Home Medications Home Medications Medication Instructions Recorded Confirmed Type multivitamin 1 tab PO QAM 10/05/19 03/17/20 History ondansetron HCl [Zofran] 4 mg PO Q6H PRN #10 tab 10/07/19 03/17/20 Rx Chemotherapy 1 unit IV UD 03/17/20 03/17/20 History dexamethasone 12 mg PO UD 03/17/20 03/17/20 History potassium chloride 20 meq PO QAM 03/17/20 03/17/20 History Patient History Medical History History of biliary stent insertion Pancreatic adenocarcinoma Type 2 diabetes mellitus Surgical History H/O tubal ligation Family History Sister Breast cancer Cancer Father Depression Heart disease Hypertension Mother Kidney disease Denies family history of Ovarian cancer Prostate cancer Colorectal cancer Social History Preferred Language: Irish Communication Ability: Effective [employer] Required: No Beliefs That Will Affect Care: None marital status: Current Living Situation: Spouse and Family current occupational status: retired Other Information That Helps Us Care for You: No Feels Safe at Home: Yes Safety Concerns: Feels Safe At This Time Smoking Status: Never smoker Second Hand Exposure: No ; Hx Alcohol Use: No Hx Substance Use: No Dental Care, Regularly: No Physical Activity Frequency: Does not Exercise Review of Systems Review of Systems: A complete 10 point review of systems was reviewed with the patient with pertinent positives and negatives as per history of present illness. All else were negative. Physical Exam Physical Exam: VITAL SIGNS - Vital signs and nursing notes were reviewed. GENERAL - 69-year-old female appearing her stated age who is in no acute distress. Communicates well with provider and answers questions appropriately. SKIN - Without rashes. HEAD - NC/AT. EYES - PERRL with EOMI bilaterally. Sclera anicteric. Palpebral conjunctiva pink and moist with no injection noted. EARS - No deformities of external structures noted on gross examination bilaterally. NOSE - Midline and without cyanosis. No epistaxis or purulent drainage noted. MOUTH/OROPHARYNX - Without perioral cyanosis. Buccal mucosa pink and moist and without leukoplakia. Tongue midline with equal elevation of palate bilaterally. NECK - Neck with FROM. Supple to palpation. No nuchal rigidity. LUNGS - Chest wall symmetric without accessory muscle use, intercostals retractions, or central cyanosis. Normal vesicular breath sounds CTA B/L. No wheezes, rales, or rhonchi appreciated. CARDIAC - RRR with S1/S2. No murmur, rubs, or gallops appreciated. ABDOMEN - Abdominal contour obese without pulsations or visible masses. BS normoactive all four quadrants. No tenderness, palpable masses, hepatosplenomegaly, or ascites noted. EXTREMITIES - No clubbing or peripheral cyanosis. Moderate edema noted to the LE FT lower extremity. +3/5 radial and dorsalis pedis pulses palpated throughout. +5/5 strength noted in UE/LE bilaterally. NEUROLOGIC - Cranial nerves II through XII grossly intact. Sensory intact to li ght touch throughout. PSYCH - A&Ox3 and cooperates fully with examiner. Pt is very pleasant and interacts well with examiner. Results & Data Results & Data ([facility]) Vital Signs (Past 12 Hours) Vital Signs Temp Pulse Pulse Resp BP Pulse Ox 03/17/20 18:24 36.5 C 93 H 19 92 03/17/20 18:00 100 H 18 110/82 95 03/17/20 17:45 98 H 12 114/83 93 03/17/20 17:30 100 H 22 118/86 95 03/17/20 17:15 98 H 14 128/92 94 03/17/20 17:00 102 H 19 116/87 94 03/17/20 16:45 101 H 17 140/90 94 03/17/20 16:40 96 H 18 94 03/17/20 16:30 97 H 14 131/86 93 03/17/20 16:20 99 H 17 90 03/17/20 16:15 98 H 14 141/84 H 95 03/17/20 16:00 96 H 15 129/84 95 03/17/20 15:45 93 H 16 139/85 94 03/17/20 15:30 93 H 14 126/80 93 03/17/20 15:25 91 H 14 122/72 92 03/17/20 15:00 93 H 15 124/80 96 03/17/20 14:45 90 14 117/92 96 03/17/20 14:15 93 H 19 129/82 99 03/17/20 14:10 99 03/17/20 14:08 36.9 C 87 14 110/73 99 03/17/20 14:00 86 14 119/76 94 Coding Level of Care Code Critical Care 1st 30-74 mins Diagnoses Admitted to intensive care unit Z78.9 Cardiac arrest I46.9 Acute massive pulmonary embolism I26.99 Saddle pulmonary embolus I26.92 Pancreatic adenocarcinoma C25.9 Bilateral pulmonary embolism I26.99 Type 2 diabetes mellitus E11.9 Liver lesion K76.9 Pancreatic mass K86.89 Time Spent (min) 65
[2020-03-17] MEDS ORDERED: GLUCAGON FOR INJ 1 MG VIAL IM PRN (20:00)
[2020-03-17] MEDS ORDERED: GLUCOSE 40% GEL 15 GM TUBE PO PRN (20:00)
[2020-03-17] MEDS ORDERED: CARBOHYDRATES FOR HYPOGLYCEMIA PO PRN (20:00)
[2020-03-17] MEDS ORDERED: GLUCOSE 10 TABS/TUBE PO PRN (20:00)
[2020-03-17] MEDS ORDERED: DEXTROSE 50% 50 ML SYRINGE IV PRN (20:00)
[2020-03-17] MEDS: INSULIN ASPART 100 UNITS/ML 3 ML PEN SC SCH (20:03)
[2020-03-17 20:14] LABS: Appearance Urine Clear (Clear); Bacteria Urine Automated Negative (Negative); Bilirubin Urine Negative (Negative); Blood Urine 2+ (Negative); Color Urine Yellow; Glucose Urine UA 1+ (Negative); Ketones Urine Trace (Negative); Leukocyte Esterase Urine Negative (Negative); Nitrite Urine Negative (Negative); Protein Urine Negative (Negative); Urobilinogen Urine Negative (Negative)
[2020-03-17] MEDS ORDERED: INSULIN GLARGINE SOLOSTAR 100 UNITS/ML 3 ML PEN SC ONE (21:00)
[2020-03-17] MEDS ORDERED: INSULIN ASPART 100 UNITS/ML 3 ML PEN SC SCH (21:00)
[2020-03-17 22:12] LABS: Partial Thromboplastin Ratio > 5.0
--- NOTE | 2020-03-17 22:13 | Communication Note ---
Date of Service: March 17, [id number] -reassessed the patient as I did receive a call from nursing staff reporting that her oxygen requirement had been increased. I did place order for high flow. On evaluation, the patient still remains hemodynamically stable and does not appear to be tachypneic or in respiratory distress. She reports feeling fine. Patient is currently on high flow with settings of 20 L and 100%. At this point, I am concerned given the high oxygen requirements and known underlying massive pulmonary embolism. Case was reviewed with my attending as well as hospitalist. It was agreed upon for discussing transfer of care to tertiary care facility with patient's high risk for worsening clinical status and need for intervention including TPA administration. 2209 - Called [facility] ( ). Spoke with Dr. Mitali Sanders, ICU. She accepts the patient, but requests that a COVID-19 test be performed prior to transfer so that we can place the patient in the appropriate ICU. Rapid COVID-19 testing ordered. 2255 -at the request the patient, I reached out to the patient's daughter, Omaira ([phone]) to provide update. 2328 - Received a call from [facility] regarding Doppler Study. US VENOUS BILATERAL LOWER EXTREMITIES: Impression: Occlusive thrombus in the left femoral vein through the popliteal vein. No evidence of deep vein throm bosis in the right lower extremity. 2353 - Called [facility] to related NEGATIVE COVID-19 PCR. 2358 - [facility] called back to report that Ed is flying. They will call back with ETA. 0010 - [facility] called with ETA of 20min. I have personally spent 40 minutes of critical care time in the direct management of this patient. This is a life/limb threatening event. This includes time spent evaluating patient, direct bedside care, chart review, placing orders, interpretation of diagnostic studies, discussion with consultants, patient, and family members, as well as other required patient management ac tivities. This time is exclusive of all separately billable procedures, and teaching time and separate from and in addition to any other critical care service time. Coding Level of Care Code Critical Care ea addt'l 30 min Time Spent (min) 40
[2020-03-17 22:21] LABS: Partial Thromboplastin Time > 139.0 Seconds (21.0-31.0)
--- NOTE | 2020-03-17 23:31 | Emergency Department Note ---
History of Present Illness General Chief complaint: Unresponsive Time Seen by Provider: 03/17/20 13:57 Source: patient, RN notes reviewed and other (I was called to code [facility], report from Dr. Mcginnis at the scene) Mode of arrival: ambulatory (stretcher from [facility] center) Limitations: no limitations History of Present Illness Provider complaint: sudden syncope/SOB Onset (ago): hour(s) less than 1 Maximum Pain Intensity: 0 This pt is a 69 yo female w h/o pancreatic CA who presents to the ED with c/o sudden onset SOB and syncope within the hour at the CA center. A code blue was called and I arrived at the scene. By report the patient received CPR "for a few minutes" but not medicines or shocks. Pt was awake and although weak was breathing on her own and minimally conversant. Dr Mcginnis of the hospitalist service was assessing her after the code was called. Pt was found to be hypoxic on arrival to the ED where staff had placed her on O2 via NRB. Pt now states she noticed her RLE was swollen just this am. Home Medications Home Medications Medication Instructions Recorded Confirmed Type multivitamin 1 tab PO QAM 10/05/19 03/17/20 History ondansetron HCl [Zofran] 4 mg PO Q6H PRN #10 tab 10/07/19 03/17/20 Rx Chemotherapy 1 unit IV UD 03/17/20 03/17/20 History dexamethasone 12 mg PO UD 03/17/20 03/17/20 History potassium chloride 20 meq PO QAM 03/17/20 03/17/20 History Allergies Allergy/AdvReac Type Severity Reaction Status Date / Time No Known Allergies Allergy Unverified 03/17/20 15:05 Past Med/Surg History Medical History History of biliary stent insertion Pancreatic adenocarcinoma Type 2 diabetes mellitus Surgical History H/O tubal ligation Family History Sister Breast cancer Cancer Father Depression Heart disease Hypertension Mother Kidney disease Denies family history of Ovarian cancer Prostate cancer Colorectal cancer Social History Preferred Language: Bengali Communication Ability: Effective 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 and A total of 10 systems reviewed and were otherwise negative Physical Exam Vital Signs Vital Signs - 24 hr 03/17/20 14:00 03/17/20 14:08 03/17/20 14:10 Temperature 36.9 C Temperature Source Oral Pulse Rate 86 87 Pulse Rate from SpO2 Sensor 86 86 Pulse Rhythm Regular Respiratory Rate 14 14 Respiratory Effort / Characteristics Non-Labored Spontaneous Respiratory Depth Normal Respiratory Pattern Regular Blood Pressure 119/76 110/73 Blood Pressure Mean 89 74 Pulse Oximetry 94 99 99 Oxygen Delivery Method Non-rebreather Non-rebreather Non-rebreather Oxygen Flow Rate 15 15 Sepsis Recent Fever Within 48 Hours No Sepsis New/Unexplained Change in Mental Status No Sepsis Action Taken by Nursing No Action Required 03/17/20 14:15 03/17/20 14:45 03/17/20 15:00 Temperature Temperature Source Pulse Rate 93 H 90 93 H Pulse Rate from SpO2 Sensor 90 90 93 H Pulse Rhythm Respiratory Rate 19 14 15 Respiratory Effort / Characteristics Respiratory Depth Respiratory Pattern Blood Pressure 129/82 117/92 124/80 Blood Pressure Mean 97 104 89 Pulse Oximetry 99 96 96 Oxygen Delivery Method Oxymask Oxymask Oxymask Oxygen Flow Rate 8 8 8 Sepsis Recent Fever Within 48 Hours Sepsis New/Unexplained Change in Mental Status Sepsis Action Taken by Nursing 03/17/20 15:25 03/17/20 15:30 03/17/20 15:45 Temperature Temperature Source Pulse Rate 91 H 93 H 93 H Pulse Rate from SpO2 Sensor 91 H 90 92 H Pulse Rhythm Respiratory Rate 14 14 16 Respiratory Effort / Characteristics Respiratory Depth Respiratory Pattern Blood Pressure 122/72 126/80 139/85 Blood Pressure Mean 79 83 94 Pulse Oximetry 92 93 94 Oxygen Delivery Method Oxymask Oxymask Oxymask Oxygen Flow Rate 8 8 8 Sepsis Recent Fever Within 48 Hours Sepsis New/Unexplained Change in Mental Status Sepsis Action Taken by Nursing 03/17/20 16:00 05/29/20 16:15 03/17/20 16:20 Temperature Temperature Source Pulse Rate 96 H 98 H 99 H Pulse Rate from SpO2 Sensor 96 H 100 H 99 H Pulse Rhythm Respiratory Rate 15 14 17 Respiratory Effort / Characteristics Respiratory Depth Respiratory Pattern Blood Pressure 129/84 141/84 H Blood Pressure Mean 90 90 Pulse Oximetry 95 95 90 Oxygen Delivery Method Oxymask Oxymask Oxygen Flow Rate 8 8 Sepsis Recent Fever Within 48 Hours Sepsis New/Unexplained Change in Mental Status Sepsis Action Taken by Nursing 03/17/20 16:30 03/17/20 16:40 03/17/20 16:45 Temperature Temperature Source Pulse Rate 97 H 96 H 101 H Pulse Rate from SpO2 Sensor 98 H 98 H 101 H Pulse Rhythm Respiratory Rate 14 18 17 Respiratory Effort / Characteristics Respiratory Depth Respiratory Pattern Blood Pressure 131/86 140/90 Blood Pressure Mean 101 109 Pulse Oximetry 93 94 94 Oxygen Delivery Method Oxymask Oxymask Oxygen Flow Rate 8 8 Sepsis Recent Fever Within 48 Hours Sepsis New/Unexplained Change in Mental Status Sepsis Action Taken by Nursing Vital signs reviewed. General: Critically ill-appearing 69 yo female, in no significant distress. HEENT: No scleral icterus, DMM Cardiovascular: Regular rate and rhythm, no extra sounds. Pulmonary: Clear to auscultation bilaterally, normal work of breathing. On NRB. Abdomen: Soft, nontender, nondistended, positive bowel sounds. Musculoskeletal: Atraumatic, no peripheral edema. Neurologic: Patient awake alert and oriented x 3 Skin: Warm, dry, no rash Course Administered Medications Discontinued Medications Heparin Sodium (Porcine) (Heparin Iv Bolus) Confirm Administered Dose 10,000 units .ROUTE .[facility] Stop: 03/17/20 15:54 Last Admin: 03/17/20 15:55 Dose: 5,000 units Documented by: [id number] Cosigned by: [id number] Heparin Sodium/Dextrose () 1 ea IV NOW STA; Protocol Stop: 03/17/20 15:43 Last Admin: 03/17/20 15:57 Dose: Not Given Documented by: [id number] Sodium Chloride (Nss 1000ml) 1,000 mls @ 999 mls/hr IV .Q1H1M BENNIE Stop: 03/17/20 15:15 Last Infusion: 03/17/20 15:20 Dose: 0 mls/hr Documented by: [id number] Admin: 03/17/20 14:18 Dose: 999 mls/hr Documented by: [id number] Heparin Sodium/Dextrose (Heparin Sodium/Dextrose) 25,000 units in 500 mls @ 18 mls/hr IV .Q24H BENNIE; Protocol Stop: 04/16/20 15:44 Last Titration: 03/18/20 00:11 Dose: 900 units/hr, 18 mls/hr Documented by: [id number] Cosigned by: [id number] Titration: 03/17/20 22:22 Dose: 0 units/hr, 0 mls/hr Documented by: [id number] Cosigned by: [id number] Titration: 03/17/20 18:54 Dose: 1,100 units/hr, 22 mls/hr Documented by: [id number] Cosigned by: [id number] Admin: 03/17/20 15:54 Dose: 1,100 units/hr, 22 mls/hr Documented by: [id number] Cosigned by: [id number] Insulin Aspart (Novolog Flexpen) 0 units SC Q6 BENNIE Stop: 04/16/20 19:59 Last Admin: 03/18/20 00:17 Dose: 3 units Documented by: [id number] Cosigned by: [id number] Admin: 03/17/20 20:03 Dose: 4 units Documented by: [id number] Cosigned by: [id number] Insulin Glargine (Lantus Solostar Pen) 15 units SC 2100 ONE Stop: 03/17/20 21:01 Last Admin: 03/17/20 21:35 Dose: 15 units Documented by: [id number] Cosigned by: [id number] Ioversol (Optiray 320 125ml) 115 ml IV ONCE PRN PRN Reason: Interaction Checking Stop: 03/21/20 14:37 Last Admin: 03/17/20 14:38 Dose: 115 ml Documented by: [id number] Critical Care Time Critical Care Time: Yes Total Critical Care Time: 60 The high probability of a clinically significant, sudden or life threatening deterioration required my full and direct attention, intervention and personal management. The aggregate critical care time was 60 minutes. This time is in addition to time spent performing reported procedures but includes the following: [x] Data Review and interpretation [x] Patient assessment and monitoring of vital signs [x] Documentation [x] Medication orders and management Medical Decision Making Differential Diagnosis Differential diagnosis: Etiologies such as infections, reactive airway disease, COPD, pneumonia, pleural effusion, pulmonary edema, ARDS, pneumothorax, CHF, cardiac ischemia, cardiac tamponade, dysrhythmia, anemia, pulmonary embolism, musculoskeletal, gastrointestinal process, as well as others were entertained. Medical Records Attestation: I reviewed the patient's medical records. Home Medications Current Medication List: was personally reviewed by me Laboratory Data Attestation: I reviewed the patient's lab results. Result diagrams: 03/17/20 13:59 03/17/20 13:59 Lab Results 03/17/20 03/17/20 03/17/20 Range/Units 13:59 13:59 13:59 WBC 18.68 H (4.8-10.8) K/uL RBC 2.98 L (4.2-5.4) M/uL Hgb 10.2 L (12.0-16.0) g/dL Hct 30.5 L (37-47) % MCV 102.3 H (80-100) fL MCH 34.2 H (25-34) pg MCHC 33.4 (32-36) g/dL RDW Std Deviation 62.1 H (36.4-46.3) fL RDW Coeff of Axel 16.6 H (11.5-14.5) % Plt Count 146 (130-400) K/uL MPV 10.4 (7.4-10.4) fL Immature Gran % (Auto) 0.4 % Neut % (Auto) 83.9 % Lymph % (Auto) 15.0 % [place] % (Auto) 0.6 % Eos % (Auto) 0.0 % Baso % (Auto) 0.1 % Immature Gran # (Auto) 0.08 H (0.00-0.02) K/uL Neut # (Auto) 15.68 H (1.4-6.5) K/uL Lymph # (Auto) 2.80 (1.2-3.4) K/uL [place] # (Auto) 0.11 (0.11-0.59) K/uL Eos # (Auto) 0.00 (0-0.5) K/uL Baso # (Auto) 0.01 (0-0.2) K/uL PT 13.6 H (9.0-12.0) Seconds INR 1.3 H (0.9-1.1) APTT 21.9 (21.0-31.0) Seconds PTT Ratio 0.8 Sodium 137 (136-145) mmol/L Potassium 3.2 L (3.5-5.1) mmol/L Chloride 103 (98-107) mmol/L Carbon Dioxide 27 (21-32) mmol/L Anion Gap 8.0 (3-11) BUN 28 H (7-18) mg/dl Creatinine 0.90 (0.6-1.2) mg/dl Est Cr Clr Drug Dosing 58.2 ml/min Est GFR ( Amer) 75.6 Est GFR (Non-Af Amer) 65.2 BUN/Creatinine Ratio 30.7 H (10-20) Glucose 241 H (70-99) mg/dl Calcium 8.5 (8.5-10.1) mg/dl Magnesium 2.1 (1.8-2.4) mg/dl Total Bilirubin 0.4 (0.2-1) mg/dl AST 36 (15-37) U/L ALT 44 (12-78) U/L Alkaline Phosphatase 133 H (45-117) U/L Troponin I < 0.015 (0-0.045) ng/ml Total Protein 5.7 L (6.4-8.2) gm/dl Albumin 3.0 L (3.4-5.0) gm/dl Globulin 2.7 (2.5-4.0) gm/dl Albumin/Globulin Ratio 1.1 (0.9-2) Imaging Data Attestation: I personally reviewed and interpreted this imaging study as follows: Radiologist's Impression: XR chest 1V portable CLINICAL HISTORY: SOB, syncope COMPARISON STUDY: No previous studies for comparison. FINDINGS: There is a right-sided A-Port catheter. The heart is normal in size. There is no failure. There is no focal pulmonary consolidation. There are no pleural effusions.[ IMPRESSION: No active disease in the chest. ACT 112: Negative or not required by law. Electronically signed by: Tyler Zaragoza M.D. 03/17/2020 2:22 PM Dictated: 03/17/20 1422 Transcribed: 03/17/[address] ANGIOGRAPHY OF THE CHEST, PULMONARY EMBOLUS PROTOCOL CLINICAL HISTORY: Shortness of breath. Evaluate for pulmonary embolus. COMPARISON STUDY: Chest radiograph March 17, 2020. TECHNIQUE: Following IV administration of 115 mL of Optiray-320, helical axial images of the chest were obtained utilizing the pulmonary embolus protocol. Maximal intensity projections and sagittal and coronal reformats were viewed on an independent 3D workstation. IV contrast was administered without complication. Automated exposure control was utilized for the study. A dose lowering technique was utilized adhering to the principles of ALARA. CT DOSE: 402.95 mGy.cm FINDINGS: A right internal jugular [id number] is in place. Note is made of extensive bilateral pulmonary emboli, including a saddle pulmonary embolus. Extensive thrombus is noted within the right and left pulmonary arteries. Emboli within the lingular and left lower lobe pulmonary arteries are occlusive. Right ventricle is dilated. There is straightening of the interventricular septum. Heart is moderately enlarged. There is reflux of contrast into the IVC and hepatic veins which are dilated. The SVC appears dilated. No enlarged thoracic lymph nodes are present. There is no pulmonary infarct. No pneumothorax or pleural effusion is noted. Findings suggesting mild pulmonary edema. No suspicious lesions within the bony thorax are noted. Visualized portions of the upper abdomen demonstrate pneumobilia. The liver appears slightly heterogeneous although this could be technical. IMPRESSION: 1. Extensive bilateral pulmonary emboli with CT findings suggestive of right heart strain. Findings discussed with Dr. Ibrahim at time of dictation. 2. Mild pulmonary edema. ACT 112: Negative or not required by law. Electronically signed by: Rodger Campos M.D. 03/17/2020 3:27 PM Dictated: 03/17/20 1518 Transcribed: 03/17/20 1518 ECG Data Attestation: I personally reviewed and interpreted this ECG as follows: Indication: + SOB/dyspnea and + syncope Rate (beats per minute): 88 Rhythm: + normal sinus ECG Intervals/blocks: + Incomplete right bundle branch block, + Normal QRS (low voltage) and + Prolonged QT ECG ST segments: + Nonspecific ST abnormalities Blood Pressure Blood Pressure Findings: Normal blood pressure Blood Pressure Disposition: did not require urgent referral MDM Narrative This pt was evaluated and appeared to be in no distress on arrival to the ED. She states she suddenly became SOB and passed out upon ambulating into the cancer center. CXR was clear. EKG reveals no acute ischemia. Lab work is significant for a leukocytosis and normal trop. CTA of chest reveals PE with a significant clot burden w heart strain. Pt was d/w Dr. Mcdonnell Pularon/CC who reviewed the CT. As pt is stable from a hemodynamic standpoint, he does not recommend TPA and believes it is unlikely she would need clot retrieval. Heparin gtt was ordered and pt was d.w the hospitalist service. I did discuss findings and plan with pt and daughter, who agree with the plan. Impression & Plan Pulmonary embolism with acute cor pulmonale, Pancreatic cancer Discharge Plan Visit Data *Final* Discharge Date/Time: 03/17/20 18:02 Chief Complaint: Unresponsive ED Provider: Rita Ibrahim Discharge Problem: Pulmonary embolism with acute cor pulmonale, Pancreatic cancer Patient Disposition: Admitted As Inpatient Condition: Serious Discharge Instructions Interventions: ED Discharge Assessment Last Done: 03/17/20 18:02 Discharge Problem: Pulmonary embolism with acute cor pulmonale Qualifiers: Pulmonary embolism type: unspecified Chronicity: acute Qualified Code(s): I26.09 - Other pulmonary embolism with acute cor pulmonale Pancreatic cancer Qualifiers: Pancreatic malignancy location: unspecified Qualified Code(s): C25.9 - Malignant neoplasm of pancreas, unspecified
[2020-03-18] MEDS ORDERED: HEPARIN 100 UNIT/ML 5ML FLUSH FLUSH PRN
[2020-03-18 00:01] LABS: Partial Thromboplastin Ratio 2.9
[2020-03-18 00:07] LABS: Partial Thromboplastin Time 79.7 Seconds (21.0-31.0)
[2020-03-18] MEDS: INSULIN ASPART 100 UNITS/ML 3 ML PEN SC SCH (00:17)
--- NOTE | 2020-03-18 01:35 | Discharge Summary ---
Date of Service March 18, 2020 Admission HPI Per Admitting Provider Shelia Alvarez is a 69 year old female with pancreatic cancer undergoing chemotherapy who presented to the ER from the cancer centre after a Code Blue. She noted feeling well earlier today with no plans on chemotherapy however she was at the cancer centre for ?Neulasta injection but never actually received any treatment today. She went into the elevator and become suddenly short of breath. The next thing she remembers is waking up in the emergency room. As per report with patient, a code blue in the cancer center after pulse was not felt, found unconscious in the elevator. She received approximately 30 seconds of chest compressions and resumed responsiveness without any defibrillation. Initial vital signs after presumed cardiac arrest were normal and she was not requiring any oxygen but after being transported to the Emergency room her saturations were 76% on room air. In hindsight she does note she woke up this morning with her left leg much larger than the right however she was in her usual health yesterday. In the ER CT for PE confirmed massive bilateral PEs. She was started on a standard heparin IV drip with bolus. Initial troponin negative but right heart strain noted on CT. Discussed care with her daughter (Omaira Alvarez, phone no. [phone]) who was present in the room with her. We discussed possible transfer to tertiary care center but she elected to be admitted here and be treated with heparin IV initially. Admission Exam Per Admitting Provider Constitutional: well developed and well nourished; no acute distress Eyes: PERRL, conjunctivae normal, anicteric sclerae ENMT: external ear and nose normal, oropharynx normal Neck: trachea midline, no thyromegaly Respiratory: normal respiratory effort, lungs clear to auscultation Cardiovascular: Rate/Rhythm: regular rhythm and + tachycardic Heart Sounds: no murmur Extremities: normal capillary refill, + calf tenderness (left calf swelling > 2cm than right) and + pedal edema (1+ b/l equal) Gastrointestinal (Abdomen): normal bowel sounds, soft, nontender, no hepatosplenomegaly Musculoskeletal: no cyanosis or clubbing, extremities motor strength 5/5 Skin: no rashes, warm and dry Neurologic: moves all extremities and awake; no focal motor deficits and not confused Speech / Cognition: normal speech Motor/Sensory: no tremor, no pronator drift and no sensory deficit Psychiatric: A+Ox3, euthymic affect Lymphatic: no cervical or axillary lymphadenopathy Principal Diagnosis Bilateral pulmonary embolism Cardiac arrest Discharge Exam Constitutional well developed and well nourished; no acute distress Respiratory normal respiratory effort, lungs clear to auscultation Cardiovascular Rate/Rhythm: regular rate and regular rhythm Neurologic moves all extremities and awake; no focal motor deficits and not confused Discharge Data Allergies Allergy/AdvReac Type Severity Reaction Status Date / Time No Known Allergies Allergy Unverified 03/17/20 15:05 Consultations 03/17/20 15:41 Consult Health Education Aide Stat ED Decision to Admit Stat 03/17/20 18:37 Consult Case Management - Discharge Planning Routine Consult Health Education Aide Routine 03/17/20 19:45 Consult Case Management - Discharge Planning Routine 03/17/20 22:57 Burn CD for patient Stat Ordered Studies 03/17/20 14:11 CT angio chest PE protocol Stat IMPRESSION: 1. Extensive bilateral pulmonary emboli with CT findings suggestive of right heart strain. Findings discussed with Dr. Ibrahim at time of dictation. 2. Mild pulmonary edema. US venous doppler LE BI Stat IMPRESSION: Acute deep venous thrombosis left leg involving left superficial femoral vein as well as distal popliteal vein. Hospital Course (1) Bilateral pulmonary embolism: Not reported as a saddle embolus on radiology report however part of the left pulmonary embolus appears to saddle the bifurcation of the main pulmonary artery. Initially patient managed in the ICU on heparin IV drip. She remained hemodynamically stable however her oxygen requirement slowly increased. The export sales assistant PA discussed with [facility] and plan is to transfer to [place] for ongoing medical care with possibility of catheter directed tPA. (2) Pancreatic adenocarcinoma: (3) Type 2 diabetes mellitus: Total Time Total Time Spent Total Time Spent (In Minutes): 15 Total Time Includes: Examination of the Patient Discharge Plan Discharge Items Patient Disposition: Transfer Acute Care Hospital Reason For Visit: BILATERAL PULMONARY EMBOLISM Discharge Diagnosis: Bilateral pulmonary embolism Condition on Discharge: Serious Activity: As commented below Non-emergency contact: Primary Care Provider Call non-emergency contact if: you have any medication questions and your symptoms worsen Follow-up/Referrals: Sugar Campos MD [Primary Care Provider] - Diet: Carb Consistent or DM2 Addtl Attending Provider Instructions: Shelia Crenshaw is a 69 year old female with pancreatic adenocarcinoma who was admitted to [facility] from March 17 to 2019 after an unresponsive episode, suspected cardiac arrest in the [facility] [place] [facility] prior to any treatment being given. She was given chest compressions but no defibrillation. She was diagnosed with large bilateral PEs on CT. Admitted initially to the ICU on IV heparin drip but her O2 requirement mildly increased and given the size of the pulmonary emboli her case was discussed with [facility] and they accepted for transfer. On bedrest at time of transfer. Medication list sent with patient (below meds are her outpatient medications). Pending Studies at Discharge: No Stand-Alone Forms: My [facility] Skilled Items Patient informed of condition?: Yes DNR: No Discharge Level of Care: Other Communicable Disease: No Discharge Prognosis: Stable Lines: Peripheral IV Urinary Catheter: Yes Medications and DC Order Prescriptions: Continued multivitamin Tablet 1 tab PO QAM RF: 0 ondansetron HCl [Zofran] 4 mg tablet 4 mg PO Q6H PRN (Reason: nausea and vomiting) Qty: 10 RF: 0 dexamethasone 4 mg tablet 12 mg PO UD RF: 0 potassium chloride 20 mEq tablet extended release 20 meq PO QAM RF: 0 Chemotherapy 1 unit IV UD RF: 0 Discharge Orders: Discharge Order (Routine); Ordered 03/18/20 Ordered By: Ender Johnson Admission Data Admit Date/Time: 03/17/20 16:56 Attending Provider: Ender Johnson Admit Provider: Ender Johnson Primary Care Provider: Sugar Campos Other Providers: Tai Garcia ; Ender Johnson Other Interventions: Discharge Summary Assessment (RN) Last Done: 03/18/20 01:37 DC Date/Time DO NOT enter until pt leaves facility: 03/18/20 01:42 Coding Level of Care Code D/C Day Management <30 mins Diagnoses Bilateral pulmonary embolism I26.99 Pancreatic adenocarcinoma C25.9 Type 2 diabetes mellitus E11.9
--- NOTE | 2020-03-18 06:54 | Ultrasound Report ---
US venous doppler LE BI HISTORY: Pain. Edema. B/L LE Edema. Massive PE COMPARISON STUDY: None. FINDINGS: Normal venous Doppler right leg. Deep venous thrombosis left superficial femoral vein, dist al popliteal vein. All remaining veins of the left leg are unremarkable. IMPRESSION: Acute deep venous thrombosis left leg involving left superficial femoral vein as well as distal popli teal vein. ACT 112: Negative or not required by law. The above report was generated using voice recognition software. It may contain grammatical, syntax or spelling errors. Electronically signed by: Dylan Sy M.D. 03/18/2020 6:52 AM
[2020-03-18] MEDS ORDERED: POTASSIUM CHLORIDE 20 MEQ TABCR PO SCH (09:00)
[2020-03-18] MEDS ORDERED: MULTIVITAMIN TAB PO SCH (09:00)
== END 2020-03-18 01:42 | disposition short-term general hospital (02) | DRG 176 ==
LOC: ED 13:46 → 1E 16:56

== ENCOUNTER 2020-04-03 09:41 | Inpatient (IN) ==
--- NOTE | 2020-04-03 11:27 | Emergency Department Note ---
Impression & Plan CHI (closed head injury), Fall ED Provider Note NAME: JUAN WATKINS AGE: 69 SEX: F ARRIVES VIA: Walk-In INFORMANT: [Patient] ED PROVIDER(S): Yg Loyola MD CHIEF COMPLAINT: Fall, CHI PLAN: Disposition: Admitted Condition: [Good] MEDICAL DECISION MAKING: Patient presented for a fall but was found to have hypokalemia and UTI on blood work. She had a slight leukocytosis as well. Anemia was stable. CT of her head was negative. ECG did not reveal any acute findings. The patient also had a mild elevation of her LFTs. She was given IV potassium and IV Rocephin. Given the situation and the fact that she had a transient low blood pressure on initial presentation I discussed further treatment in the hospital for the several issues. Patient was in agreement. I did consult with the hospitalist service, Dr. Ordoñez. The patient was admitted for further treatment. Triage Nursing notes reviewed and agree them. Vital Signs: reviewed and remarkable for [no significant abnormalities] Differential diagnosis: SDH, ICH, infection, dehydration, metabolic abnormality, hypo/hyperglycemia, electrolyte disturbance, anemia, hypoxia, cardiac sources, intracerebral event, toxicologic, neurologic, as well as other pathologies. ER treatment provided: IV potassium IV Rocephin Diagnostics interpreted by me: ECG: Rate: 73 Rhythm:Normal sinus Dag[place]:Normal QRS:Normal ST segements:No elevation or depression. Nonspecific ST Other:No PACs or PVCs Laboratory studies: [See below] mild leukocytosis on CBC with stable anemia. Hypokalemia on chemistry. Elevated LFTs. Imaging studies: Head CT: A noncontrast CT scan of the head was performed and was negative for tumor, fracture, intracranial hemorrhage, or other acute pathology. Consultation(s): [facility] hospitalist service HPI: The patient is a 69 year old female who presents to the Emergency Room with complaints of CHI. This started last night at 1900 hrs. Pt accidentally fell using her walker. Hit her head on the grass. Called [facility] [place] and was directed to the ER for a check up. The patient also notes the following associated symptoms, none. The patient has need no medication relieving factors. Current pain is rated as 0/10. She recently had heart surgery for PE [place] [facility]. Currently anticoagulated. Pt denies LOC, headache, fevers, chills, diaphoresis, visual changes, neck pain, chest pain, breathing difficulties, nausea, vomiting, abdominal pain, back pain, melena, hematochezia, urinary symptoms, numbness, weakness, lymphadenopathy, rash, or other complaints. ROS: See above HPI for pertinent positives & negatives. A total of [10] systems reviewed and were otherwise negative. PAST MEDICAL HISTORY:[See Below] PAST SURGICAL HISTORY:[See Below] FAMILY HISTORY:[See Below] SOCIAL HISTORY:[See Below] HOME MEDICATIONS:[See Below] ALLERGIES:[See Below] VITALS:[See Below] PHYSICAL EXAMINATION: GENERAL: Awake, alert, well-appearing, in no distress HENT: Normocephalic, atraumatic. Oropharynx unremarkable. EYES: Normal conjunctiva. Sclera non-icteric. PERRL, EOMI NECK: Inspection normal. Non-tender. Supple. No nuchal rigidity. FROM. No masses. RESPIRATORY: Clear to auscultation. No wheezes. No rales. Normal respiratory effort. CARDIAC: Normal rate. Normal rhythm. No murmurs. No rubs. Extremities warm and well perfused. Pulses equal. No JVD. GI: Soft, non-distended. No tenderness to palpation. No rebound or guarding. No masses. RECTAL: Deferred. MUSCULOSKELETAL: Atraumatic. Chest examination reveals no tenderness. Sternal wound healing without infection. The back is symmetrical on inspection without obvious abnormality. There is no CVA tenderness to palpation. No joint edema. LOWER EXTREMITIES: Calves are equal size bilaterally and non-tender. No edema. No discoloration. NEURO: Normal sensorium. No sensory or motor deficits noted. SKIN: No rash or jaundice noted. 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 Type 2 diabetes mellitus diet controlled Surgical History (Updated 04/03/20 @ 14:27 by Ender Ordoñez) H/O tubal ligation History of embolectomy 02/2020 - [facility] - for massive saddle PE S/P IVC filter 02/2020 - [facility] S/P patent foramen ovale closure 02/2020 - [facility] Family History Sister Breast cancer Cancer Father Depression Heart disease Hypertension Mother Kidney disease Denies family history of Ovarian cancer Prostate cancer Colorectal cancer Social History (Updated 04/03/20 @ 14:29 by Ender Ordoñez) Preferred Language: Mongolian Communication Ability: Effective Transportation Sales Consultant Required: No Beliefs That Will Affect Care: None marital status: Current Living Situation: Spouse and Family Current Living Situation Comment: lives with and son in [place]; has 5 kids 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 Other Information That Helps Us Care for You: No Feels Safe at Home: Yes Safety Concerns: Feels Safe At This Time Smoking Status: Never smoker Second Hand Exposure: No ; Hx Alcohol Use: No Hx Substance Use: No Dental Care, Regularly: No Physical Activity Frequency: Does not Exercise Allergies Allergies Allergy/AdvReac Type Severity Reaction Status Date / Time No Known Allergies Allergy Unverified 04/03/20 12:23 Home Meds Home Medications Medication Instructions Recorded Confirmed multivitamin 1 tab PO QAM 10/05/19 04/03/20 amiodarone 200 mg PO QAM 04/03/20 04/03/20 apixaban [Eliquis] 5 mg PO BID 04/03/20 04/03/20 lisinopril 2.5 mg PO QAM 04/03/20 04/03/20 metoprolol tartrate 50 mg PO BID 04/03/20 04/03/20 Results & Data (ED) Vital Signs Vital Signs - 24 hr 04/03/20 09:50 04/03/20 11:06 04/03/20 11:32 Temperature 37.0 C Temperature Source Oral Pulse Rate 74 Pulse Rate [Finger] 74 72 Respiratory Rate 20 20 18 Blood Pressure 87/55 L Blood Pressure [Right Arm] 102/56 L 113/71 Blood Pressure Mean 65 Blood Pressure Mean [Right Arm] 71 85 Pulse Oximetry 99 98 95 Oxygen Delivery Method Room Air Room Air Room Air Sepsis Recent Fever Within 48 Hours No Sepsis Action Taken by Nursing No Action Required 04/03/20 11:50 04/03/20 13:15 04/03/20 13:33 Temperature Temperature Source Pulse Rate 74 Pulse Rate [Finger] 76 72 Respiratory Rate 20 12 16 Blood Pressure Blood Pressure [Right Arm] 114/66 120/65 Blood Pressure Mean Blood Pressure Mean [Right Arm] 82 83 Pulse Oximetry 96 99 100 Oxygen Delivery Method Room Air Room Air Room Air Sepsis Recent Fever Within 48 Hours Sepsis Action Taken by Nursing Laboratory Data Result diagrams: 04/03/20 11:45 04/03/20 11:45 Lab Results 04/03/20 04/03/20 04/03/20 Range/Units 11:45 11:45 12:30 WBC 10.99 H (4.8-10.8) K/uL RBC 3.15 L (4.2-5.4) M/uL Hgb 9.9 L (12.0-16.0) g/dL Hct 29.6 L (37-47) % MCV 94.0 (80-100) fL MCH 31.4 (25-34) pg MCHC 33.4 (32-36) g/dL RDW Std Deviation 61.9 H (36.4-46.3) fL RDW Coeff of Axel 18.4 H (11.5-14.5) % Plt Count 247 (130-400) K/uL MPV 9.2 (7.4-10.4) fL Immature Gran % (Auto) 0.6 % Neut % (Auto) 82.6 % Lymph % (Auto) 10.1 % [place] % (Auto) 6.5 % Eos % (Auto) 0.0 % Baso % (Auto) 0.2 % Immature Gran # (Auto) 0.07 H (0.00-0.02) K/uL Neut # (Auto) 9.08 H (1.4-6.5) K/uL Lymph # (Auto) 1.11 L (1.2-3.4) K/uL [place] # (Auto) 0.71 H (0.11-0.59) K/uL Eos # (Auto) 0.00 (0-0.5) K/uL Baso # (Auto) 0.02 (0-0.2) K/uL Sodium 139 (136-145) mmol/L Potassium 2.6 L (3.5-5.1) mmol/L Chloride 107 (98-107) mmol/L Carbon Dioxide 24 (21-32) mmol/L Anion Gap 8.0 (3-11) BUN 10 (7-18) mg/dl Creatinine 0.59 L (0.6-1.2) mg/dl Est Cr Clr Drug Dosing 81.0 ml/min Est GFR ( Amer) 108.4 Est GFR (Non-Af Amer) 93.5 BUN/Creatinine Ratio 16.1 (10-20) Glucose 134 H (70-99) mg/dl Calcium 8.1 L (8.5-10.1) mg/dl Magnesium 1.6 L (1.8-2.4) mg/dl Total Bilirubin 0.7 (0.2-1) mg/dl AST 235 H (15-37) U/L ALT 126 H (12-78) U/L Alkaline Phosphatase 384 H (45-117) U/L Total Protein 6.0 L (6.4-8.2) gm/dl Albumin 2.5 L (3.4-5.0) gm/dl Globulin 3.5 (2.5-4.0) gm/dl Albumin/Globulin Ratio 0.7 L (0.9-2) Urine Color Dark Yellow Urine Appearance Turbid A (Clear) Urine pH 5.0 (4.5-7.5) Ur Specific [place] 1.019 (1.000-1.030) Urine Protein 1+ H (Negative) Urine Glucose (UA) Negative (Negative) Urine Ketones Negative (Negative) Urine Blood 1+ H (Negative) Urine Nitrite Positive A (Negative) Urine Bilirubin Negative (Negative) Urine Urobilinogen Negative (Negative) Ur Leukocyte Esterase 2+ H (Negative) Urine WBC (Auto) >30 H (0-5) /hpf Urine RBC (Auto) 5-10 H (0-4) /hpf U Hyaline Cast (Auto) 1-5 (0-5) /lpf U Epithel Cells (Auto) >30 H (0-5) /lpf Urine Bacteria (Auto) 4+ H (Negative) Administered Medications Potassium Chloride/Sodium Chloride (Normal Saline W/20 Meq Kcl) 20 meq in 1,000 mls @ 80 mls/hr IV .[id number] BENNIE Stop: 04/04/20 15:59 Last Admin: 04/03/20 18:29 Dose: 80 mls/hr Documented by: [id number] Potassium Chloride (Klor-Con M20) 40 meq PO TID BENNIE Stop: 05/03/20 14:59 Last Admin: 04/03/20 15:48 Dose: 40 meq Documented by: [id number] Discontinued Medications Sodium Chloride (Nss 1000ml) 500 mls @ 999 mls/hr IV .Q31M ONE Stop: 04/03/20 13:36 Last Infusion: 04/03/20 15:49 Dose: 0 mls/hr Documented by: [id number] Admin: 04/03/20 13:40 Dose: 999 mls/hr Documented by: [id number] Sodium Chloride (Nss 1000ml) 1,000 mls @ 125 mls/hr IV .Q8H STA Stop: 04/03/20 21:05 Last Admin: 04/03/20 19:06 Dose: Not Given Documented by: [id number] Ceftriaxone Sodium (Rocephin) 1,000 mg in 50 mls @ 100 mls/hr IV NOW STA Stop: 04/03/20 13:35 Last Infusion: 04/03/20 16:11 Dose: 0 mls/hr Documented by: [id number] Admin: 04/03/20 15:11 Dose: 100 mls/hr Documented by: [id number] Potassium Chloride (K [place] / Wtr) 10 meq in 100 mls @ 100 mls/hr IV ONE ONE Stop: 04/03/20 14:05 Last Infusion: 04/03/20 15:11 Dose: 0 mls/hr Documented by: [id number] Admin: 04/03/20 13:39 Dose: 100 mls/hr Documented by: [id number] Magnesium Sulfate/Dextrose (Magnesium Sulfate / D5w) 1 gm in 100 mls @ 100 mls/hr IV Q1H BENNIE Stop: 04/03/20 16:58 Last Infusion: 04/03/20 18:29 Dose: 0 mls/hr Documented by: [id number] Admin: 04/03/20 17:36 Dose: 100 mls/hr Documented by: [id number] Infusion: 04/03/20 16:49 Dose: 0 mls/hr Documented by: [id number] Admin: 04/03/20 15:49 Dose: 100 mls/hr Documented by: [id number] Discharge Plan Visit Data *Final* Discharge Date/Time: 04/03/20 16:30 Chief Complaint: Fall Stated Complaint: ON BLOOD THINNERS - FELL ON GRASS AND HIT HEAD ED Provider: Yg Loyola Discharge Problem: CHI (closed head injury), Fall Patient Disposition: Admitted As Inpatient Discharge Instructions Interventions: ED Discharge Assessment Last Done: 04/03/20 16:30
[2020-04-03 11:54] LABS: Basophils # (auto) 0.02 K/uL (0-0.2); Basophils % (auto) 0.2 %; Hematocrit (blood only) 29.6 % (37-47); Hemoglobin 9.9 g/dL (12.0-16.0); Immature Granulocytes # (auto) 0.07 K/uL (0.00-0.02); Immature Granulocytes % (auto) 0.6 %; Lymphocytes # (auto) 1.11 K/uL (1.2-3.4); Lymphocytes % (auto) 10.1 %; Mean Corpuscular Hemoglobin 31.4 pg (25-34); Mean Corpuscular Hgb Conc 33.4 g/dL (32-36); Mean Platelet Volume 9.2 fL (7.4-10.4); Monocytes # (auto) 0.71 K/uL (0.11-0.59); Monocytes % (auto) 6.5 %; Neutrophils # (auto) 9.08 K/uL (1.4-6.5); Neutrophils % (auto) 82.6 %; Platelet Count 247 K/uL (130-400); RDW Coefficient of Variation 18.4 % (11.5-14.5); RDW Standard Deviation 61.9 fL (36.4-46.3); Red Blood Count 3.15 M/uL (4.2-5.4); White Blood Count 10.99 K/uL (4.8-10.8)
[2020-04-03 12:12] LABS: Albumin Level 2.5 gm/dl (3.4-5.0); BUN Creatinine Ratio 16.1 (10-20); Calcium 8.1 mg/dl (8.5-10.1); Est GFR (African American) 108.4; Est GFR (Non-African American) 93.5; Magnesium 1.6 mg/dl (1.8-2.4); Potassium 2.6 mmol/L (3.5-5.1)
--- NOTE | 2020-04-03 12:12 | CT Scan Report ---
CT OF THE HEAD WITHOUT CONTRAST CLINICAL HISTORY: fall COMPARISON STUDY: No previous studies for comparison. CT DOSE: 614.27 mGy.cm TECHNIQUE: Helical axial images of the head were obtained without IV contrast. Automated exposure con trol was utilized for the study. A dose lowering technique was utilized adhering to the principles o f ALARA. FINDINGS: No acute intracranial hemorrhage, midline shift or mass effect is present. The ventricular system is unremarkable. The basilar cisterns are patent. Mild white matter hypodensities favor small vessel disease. No extra-axial collections are present. There are no findings to suggest acute dural sinus thrombosis or acute territorial infarct. No significant calvarial abnormalities are present. Vi sualized portions of the sinuses and mastoid air cells are clear. IMPRESSION: 1. No acute intracranial findings. 2. No calvarial fracture. ACT 112: Negative or not required by law. Electronically signed by: Rodger Campos M.D. 04/03/2020 12:10 PM
[2020-04-03 12:15] LABS: Albumin Globulin Ratio 0.7 (0.9-2); Bilirubin,Total 0.7 mg/dl (0.2-1); Globulin 3.5 gm/dl (2.5-4.0)
--- NOTE | 2020-04-03 12:38 | Electrocardiogram Report ---
Test Reason : Blood Pressure : / mmHG Vent. Rate : 073 BPM Atrial Rate : 073 BPM P-R Int : 198 ms QRS Dur : 102 ms QT Int : 422 ms P-R-T Axes : 075 -20 111 degrees QTc Int : 464 ms Normal sinus rhythm Nonspecific T wave abnormality Abnormal ECG When compared with ECG of 17-MAR-2020 13:55, Incomplete right bundle branch block is no longer Present Confirmed by Lamin Song ([id number]) on 04/03/2020 12:38:01 PM Referred By: REFERRED SELF Confirmed By:Leo Song
[2020-04-03 12:40] LABS: Appearance Urine Turbid (Clear); Bacteria Urine Automated 4+ (Negative); Bilirubin Urine Negative (Negative); Blood Urine 1+ (Negative); Color Urine Dark Yellow; Epithelial Cell Urine Auto >30 /lpf (0-5); Glucose Urine UA Negative (Negative); Ketones Urine Negative (Negative); Leukocyte Esterase Urine 2+ (Negative); Nitrite Urine Positive (Negative); Protein Urine 1+ (Negative); Specific Gravity Urine 1.019 (1.000-1.030); Urobilinogen Urine Negative (Negative); WBC Urine Automated >30 /hpf (0-5)
[2020-04-03] MEDS ORDERED: SODIUM CHLORIDE 0.9% 1000ML 500 ML IV ONE (13:06)
[2020-04-03] MEDS ORDERED: POTASSIUM CHLORIDE / WTR 10 MEQ/100 ML PLCT IV ONE (13:06)
[2020-04-03] MEDS ORDERED: SODIUM CHLORIDE 0.9% 1000ML 1,000 ML IV STA (13:06)
[2020-04-03] MEDS ORDERED: cefTRIAXone SODIUM 1,000 MG/50 ML BAG IV STA (13:06)
--- NOTE | 2020-04-03 14:15 | Discharge Summary ---
Date of Service April 03, 2020 Discharge Data Allergies Allergy/AdvReac Type Severity Reaction Status Date / Time No Known Allergies Allergy Unverified 04/03/20 12:23 Ordered Studies 04/03/20 11:27 CT head/brain wo con Stat Discharge Plan Forms Stand Alone Forms: My [facility] Prescriptions Prescriptions: No Action multivitamin Tablet 1 tab PO QAM RF: 0 amiodarone 200 mg Tablet 200 mg PO QAM RF: 0 metoprolol tartrate 50 mg Tablet 50 mg PO BID RF: 0 lisinopril 2.5 mg Tablet 2.5 mg PO QAM RF: 0 Eliquis 5 mg Tablet 5 mg PO BID RF: 0 Coding
--- NOTE | 2020-04-03 14:31 | History & Physical Report ---
Date of Service April 03, 2020 Assessment & Plan (1) Fall: accidental. no prodromal symptoms (lightheadedness, dizziness, palpitations, chest pain, etc). with that said her potassium and mag levels are low, and she likely has a UTI - all of which could have made her weak and enhancing her fall risk. she also states her left leg is weak - she noted it while at recently. replace electrolyte disturbances. treat UTI. obtain PT/OT consults. check MRI brain w/ and w/o contrast - r/o subacute stroke causing LLE weakness; r/o metastatic disease. (2) Hypokalemia: severe. acute on chronic - dating back to early 2019 she has had persistent hypokalemia. uncertain if this is a side effect of a chemo agent for her pancreatic ca. uncertain if related to poor dietary intake. uncertain if this could be renal wasting. she is NOT on diuretic therapy. given IV KCL in ER. start K-dur 40meq TID. add KCL to basal fluids. replace low mag. check random urine potassium for renal wasting. BMP in am. mag in am. (3) UTI (urinary tract infection): suspected. cont rocephin 2gm daily. follow urine culture. follow blood cultures. (4) Left leg weakness: started while at [facility] recently. she does have DVT in that leg and there is edema due to such but she has hip flexion weakness. in light of her exam findings will check MRI brain - r/o subacute stroke; r/o metastatic disease. if MRI brain negative then would check lumbar spine imaging. PT, OT evals. (5) Hypomagnesemia: replace 2gm IV mag x 1. repeat mag level am. (6) Abnormal LFTs: at baseline LFTs are abnormal 2nd to pancreatic cancer compression of the biliary tree. however, LFTs are now worse than baseline. check RUQ u/s - check patency of CBD stent. acute elevation could be 2nd to amiodarone which was started at [facility] when she had PAF. recheck LFTs in am. (7) Saddle pulmonary embolus: 03/17/20 with resulting brief cardiac arrest - s/p CPR with successful resuscitation. transferred to [place]. underwent embolectomy and PFO closure. then underwent IVC filter placement. did not tolerate coumadin with elevated INRs. changed to eliquis BID on recommendation from [place] heme/onc. o2 sats 100% in RA today. (8) History of embolectomy: see above (9) S/P patent foramen ovale closure: [facility] - in the context of pulmonary artery embolectomy (10) Left leg DVT: with resulting saddle PE (11) Cardiac arrest: 2nd to massive / saddle PE - 03/17/20 (12) S/P IVC filter: placed at [facility] during recent stay (13) Pancreatic cancer: diagnosed 09/2019 follows with [facility] oncology and Dr Cordova locally s/p chemo this spring (14) PAF (paroxysmal atrial fibrillation): post-op -- while at [facility] s/p spontaneous conversion to NSR placed on amiodarone to maintain NSR uncertain if amiodarone is causing worsening LFTs (15) Severe protein-calorie malnutrition: 40+ pounds of weight loss since 2019 cont MVI (16) DVT prophylaxis: eliquis BID History of Present Illness Chief Complaint: fall, hit head Primary Care Provider: Sugar Campos MD 69yo female with history of pancreatic ca s/p biliary stent in 09/2019 and 11/2019, recent saddle PE leading to brief cardiac arrest s/p transfer to with subsequent embolectomy and PFO repair along with IVC filter placement (discharged home on 03/27/2020 with eliquis and home PT) -- presents from home with c/o fall last night about 7pm. Denies prodromal dizziness, presyncope, or syncope. She was coming into her house from outside and simply lost her balance. She fell onto her lawn but did hit her head. She otherwise felt ok last night. This am upon awakening she felt fine but contacted her doctors at [facility] who advised ER evaluation. Denies anorexia, fevers, chills, dypsnea, chest pain, abdominal pain, nausea, emesis, loss of taste or smell, diarrhea. She does have dysuria - noticed it for 2-3 days. Her oncologist is Dr Seamus Cordova from the [facility]. She last saw him several weeks ago when she had the cardiac arrest (this occurred IN the cancer center). She has received chemotherapy under Dr Cordova's guidance over the last few months. [place] has advised holding chemotherapy for several weeks in light of recent cardiac arrest and saddle PE. Allergies Allergy/AdvReac Type Severity Reaction Status Date / Time No Known Allergies Allergy Unverified 04/03/20 12:23 Home Medications Home Medications Medication Instructions Recorded Confirmed Type multivitamin 1 tab PO QAM 10/05/19 04/03/20 History amiodarone 200 mg PO QAM 04/03/20 04/03/20 History apixaban [Eliquis] 5 mg PO BID 04/03/20 04/03/20 History lisinopril 2.5 mg PO QAM 04/03/20 04/03/20 History metoprolol tartrate 50 mg PO BID 04/03/20 04/03/20 History Past Med/Surg History Medical History (Updated 04/04/20 @ 05:45 by Ender Ordoñez) Cardiac arrest 02/2020 - 2nd to massive/saddle PE History of biliary stent insertion Left leg DVT 02/2020 - with saddle PE PAF (paroxysmal atrial fibrillation) 03/2020 - post-op from embolectomy for saddle PE () Pancreatic adenocarcinoma Saddle pulmonary embolus 02/2020 Type 2 diabetes mellitus diet controlled Surgical History (Updated 04/03/20 @ 14:27 by Ender Ordoñez) H/O tubal ligation History of embolectomy 02/2020 - [facility] - for massive saddle PE S/P IVC filter 02/2020 - [facility] S/P patent foramen ovale closure 02/2020 - [facility] Family History Sister Breast cancer Cancer Father Depression Heart disease Hypertension Mother Kidney disease Denies family history of Ovarian cancer Prostate cancer Colorectal cancer Social History (Updated 04/03/20 @ 14:29 by Ender Ordoñez) Preferred Language: Maori Communication Ability: Effective 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 Open Pit Required: No Beliefs That Will Affect Care: None marital status: Current Living Situation: Spouse and Family Current Living Situation Comment: lives with and son in [place]; has 5 kids 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 Other Information That Helps Us Care for You: No Feels Safe at Home: Yes Safety Concerns: Feels Safe At This Time Smoking Status: Never smoker Second Hand Exposure: No ; Hx Alcohol Use: No Hx Substance Use: No Dental Care, Regularly: No Physical Activity Frequency: Does not Exercise Review of Systems Constitutional: + weight loss (40 pounds ); no fever, no chills, no fatigue and no anorexia Eyes: no worsening vision Ear, Nose, Mouth, Throat: + nasal discharge; no sore throat and no dysphagia Respiratory: no cough, no dyspnea and no hemoptysis Cardiovascular: no chest pain and no edema Gastrointestinal: no abdominal pain, no nausea, no vomiting, no diarrhea/loose stools and no blood in stools Genitourinary: + dysuria Musculoskeletal: no back pain and no neck pain Integumentary: no rash Neurologic: + localized weakness (left leg -- for a few weeks ); no loss of sensation Psychiatric: no depression and no anxiety Endocrine: diabetes controlled w/ diet Hematologic / Lymphatic: no easy bleeding and no easy bruising Physical Exam Constitutional: + frail appearing; no acute distress and no altered mental status Eyes: + anicteric sclerae and PERRL ENMT: external ear and nose normal, oropharynx normal Neck: trachea midline, no thyromegaly Respiratory: normal respiratory effort, lungs clear to auscultation Cardiovascular: Rate/Rhythm: regular rate and regular rhythm Heart Sounds: normal S1 and normal S2; no murmur Vessels: posterior tibial pulses present and dorsalis pedis pulses present; no JVD Extremities: + edema (B/l legs, worse on left) Gastrointestinal (Abdomen): Inspection/Auscultation: normal bowel sounds; abdomen not distended Percussion/Palpation: abdomen soft and + hepatomegaly (Liver edge palpable ); abdomen nontender, no guarding and no splenomegaly Musculoskeletal: no cyanosis or clubbing, extremities motor strength 5/5 Skin: no rashes, warm and dry + pallor midline, vertical sternal incision clean/dry/well-healed Neurologic: deep tendon reflexes 2+ bilaterally, moves all extremities and + focal motor deficit Motor/Sensory: no pronator drift b/l arms 5/5 strength Psychiatric: A+Ox3, euthymic affect Lymphatic: no cervical lymphadenopathy Results & Data Results & Data ([facility]) Vital Signs (Past 12 Hours) Vital Signs Temp Pulse Pulse Resp BP BP Pulse Ox 04/03/20 13:33 72 16 120/65 100 04/03/20 13:15 76 12 114/66 99 04/03/20 11:50 74 20 96 04/03/20 11:32 72 18 113/71 95 04/03/20 11:06 74 20 102/56 L 98 04/03/20 09:50 37.0 C 74 20 87/55 L 99 Laboratory Results Laboratory Results - last 24 hr 04/03/20 04/03/20 04/03/20 11:45 11:45 12:30 WBC 10.99 H RBC 3.15 L Hgb 9.9 L Hct 29.6 L MCV 94.0 MCH 31.4 MCHC 33.4 RDW Std Deviation 61.9 H RDW Coeff of Axel 18.4 H Plt Count 247 MPV 9.2 Immature Gran % (Auto) 0.6 Neut % (Auto) 82.6 Lymph % (Auto) 10.1 Andrew % (Auto) 6.5 Eos % (Auto) 0.0 Baso % (Auto) 0.2 Immature Gran # (Auto) 0.07 H Neut # (Auto) 9.08 H Lymph # (Auto) 1.11 L Andrew # (Auto) 0.71 H Eos # (Auto) 0.00 Baso # (Auto) 0.02 Sodium 139 Potassium 2.6 L Chloride 107 Carbon Dioxide 24 Anion Gap 8.0 BUN 10 Creatinine 0.59 L Est Cr Clr Drug Dosing 81.0 Est GFR ( Amer) 108.4 Est GFR (Non-Af Amer) 93.5 BUN/Creatinine Ratio 16.1 Glucose 134 H Calcium 8.1 L Magnesium 1.6 L Total Bilirubin 0.7 AST 235 H ALT 126 H Alkaline Phosphatase 384 H Total Protein 6.0 L Albumin 2.5 L Globulin 3.5 Albumin/Globulin Ratio 0.7 L Urine Color Dark Yellow Urine Appearance Turbid A Urine pH 5.0 Ur Specific [place] 1.019 Urine Protein 1+ H Urine Glucose (UA) Negative Urine Ketones Negative Urine Blood 1+ H Urine Nitrite Positive A Urine Bilirubin Negative Urine Urobilinogen Negative Ur Leukocyte Esterase 2+ H Urine WBC (Auto) >30 H Urine RBC (Auto) 5-10 H U Hyaline Cast (Auto) 1-5 U Epithel Cells (Auto) >30 H Urine Bacteria (Auto) 4+ H Diagnostic Findings 1. CT head - no acute ICH or fracture or CVA. 2. EKG - NSR, no new ST segment changes. Code Status & VTE Plan Code Status full VTE Prophylaxis Plan VTE Prophylaxis will be ordered: Yes PG Care Time/CCT Total # of Minutes Spent Total Time Spent with Patient: Total time spent is greater than 50% in coordination of care (as documented) at patient's floor/unit and/or counseling patient: Coding Level of Care Code 58811 Initial Inpt Care Lvl 3 Diagnoses Fall W19.XXXA Encounter type: initial encounter Hypokalemia E87.6 UTI (urinary tract infection) N30.00 Urinary tract infection type: acute cystitis Hematuria presence: without hematuria Left leg weakness R29.898 Hypomagnesemia E83.42 Abnormal LFTs R94.5 Saddle pulmonary embolus I26.02 Chronicity: unspecified Acute cor pulmonale presence: with acute cor pulmonale History of embolectomy Z98.890 S/P patent foramen ovale closure Z87.74 Left leg DVT I82.402 Affected thrombotic vein of extremity: unspecified vein of extremity Chronicity: unspecified Cardiac arrest I46.9 S/P IVC filter Z95.828 Pancreatic cancer C25.9 Pancreatic malignancy location: unspecified PAF (paroxysmal atrial fibrillation) I48.0 Severe protein-calorie malnutrition E43 DVT prophylaxis Z29.9 (1) UTI (urinary tract infection) Urinary tract infection type: acute cystitis Hematuria presence: without hematuria Qualified Code(s): N30.00 - Acute cystitis without hematuria (2) Saddle pulmonary embolus Chronicity: unspecified Acute cor pulmonale presence: with acute cor pulmonale Qualified Code(s): I26.02 - Saddle embolus of pulmonary artery with acute cor pulmonale (3) Pancreatic cancer Pancreatic malignancy location: unspecified Qualified Code(s): C25.9 - Malignant neoplasm of pancreas, unspecified (4) Left leg DVT Affected thrombotic vein of extremity: unspecified vein of extremity Chronicity: unspecified Qualified Code(s): I82.402 - Acute embolism and thrombosis of unspecified deep veins of left lower extremity (5) Fall Encounter type: initial encounter Qualified Code(s): W19.XXXA - Unspecified fall, initial encounter
[2020-04-03] MEDS: POTASSIUM CHLORIDE 20 MEQ TABCR PO SCH ×2 (15:48→23:48)
[2020-04-03] MEDS: MAGNESIUM SULFATE / D5W 1 GM/100 ML BAG IV SCH ×2 (15:49→17:36)
--- NOTE | 2020-04-03 17:19 | Ultrasound Report ---
ULTRASOUND RIGHT UPPER QUADRANT ABDOMEN CLINICAL HISTORY: Elevated hepatic transaminases. COMPARISON STUDY: Abdominal CT dated 10/05/2019. TECHNIQUE: Real-time, grayscale, and color flow sonography of the right upper quadrant of the abdomen was performed. Images are reviewed in the transverse and longitudinal planes. FINDINGS: Liver: The liver is normal in size and echotexture. There is mild to moderate intrahepatic biliary du ctal dilatation. Pneumobilia is noted. The main portal vein is patent. Gallbladder: The gallbladder is filled with numerous shadowing gallstones. A 4 mm polyp is incidental ly noted. There is no gallbladder wall thickening or pericholecystic fluid. A sonographic Frederick's si gn is reportedly absent. The common bile duct is distended measuring up to 1.5 cm in diameter. The co mmon bile duct stent is in place. Pancreas: A 2.5 cm mass lesion is again seen in the region of the pancreatic head. The splenic vein i s patent. Peripancreatic lymph nodes are suggested. Right kidney: Survey images of the right kidney demonstrate normal size and echotexture. There is no hydronephrosis. Ascites: None. IMPRESSION: 1. A mass lesion is again seen within the region of the pancreatic head. 2. The common bile duct is distended measuring up to 1.5 cm. A common duct stent is in place. 3. There is mild to moderate intrahepatic biliary duct dilatation. Pneumobilia is noted. 4. Cholelithiasis without sonographic evidence of acute cholecystitis. ACT 112: Negative or not required by law. Electronically signed by: Fletcher Qureshi M.D. 04/03/2020 5:18 PM
[2020-04-03] MEDS ORDERED: ONDANSETRON INJ 2 MG/ML 2 ML VIAL IV PRN (17:24)
[2020-04-03] MEDS: NSS + 20MEQ KCL 20 MEQ/1,000 ML BAG IV SCH (18:29)
[2020-04-03] MEDS: METOPROLOL TARTRATE 25 MG TAB PO SCH (21:19)
[2020-04-03] MEDS: APIXABAN 5 MG TABLET PO SCH (21:19)
[2020-04-03] MEDS ORDERED: GADOBUTROL 65ML VIAL IV PRN (22:11)
[2020-04-04] MEDS ORDERED: HEPARIN 100 UNIT/ML 5ML FLUSH FLUSH PRN (01:02)
[2020-04-04] MEDS: NSS + 20MEQ KCL 20 MEQ/1,000 ML BAG IV SCH (06:41)
--- NOTE | 2020-04-04 07:05 | Magnetic Resonance Report ---
MR brain wo/w con CLINICAL HISTORY: pancreatic ca; LLE weakness; eval mets or CVA mental status change COMPARISON STUDY: No previous studies for comparison. TECHNIQUE: Utilizing a 1.5 Graciela magnet and dedicated coil, multiplanar, multiecho imaging of the br ain was performed pre and postcontrast administration. IV administration of 6 mL of Gadavist contras t was uneventful. FINDINGS: Diffusion images are normal. Signal characteristics of the cerebellar as well as cerebral h emispheres are unremarkable. Mild age-related atrophy and chronic small vessel change. No abnormal postcontrast enhancement. IMPRESSION: Age-related change. No acute process. No abnormal postcontrast enhancement. ACT 112: Negative or not required by law. The above report was generated using voice recognition software. It may contain grammatical, syntax or spelling errors. Electronically signed by: Dylan Sy M.D. 04/04/2020 7:03 AM
[2020-04-04] MEDS: METOPROLOL TARTRATE 25 MG TAB PO SCH (07:55)
[2020-04-04] MEDS: POTASSIUM CHLORIDE 20 MEQ TABCR PO SCH (07:55)
[2020-04-04] MEDS: APIXABAN 5 MG TABLET PO SCH (07:55)
[2020-04-04 08:15] LABS: Hematocrit (blood only) 30.4 % (37-47); Mean Corpuscular Hemoglobin 31.4 pg (25-34); Mean Corpuscular Hgb Conc 32.9 g/dL (32-36); Mean Corpuscular Volume 95.6 fL (80-100); Mean Platelet Volume 9.1 fL (7.4-10.4); Platelet Count 230 K/uL (130-400); RDW Coefficient of Variation 18.5 % (11.5-14.5); RDW Standard Deviation 64.1 fL (36.4-46.3); Red Blood Count 3.18 M/uL (4.2-5.4); White Blood Count 8.86 K/uL (4.8-10.8)
[2020-04-04 08:54] LABS: Albumin Globulin Ratio 0.6 (0.9-2); Albumin Level 2.2 gm/dl (3.4-5.0); BUN Creatinine Ratio 12.4 (10-20); Bilirubin,Total 0.4 mg/dl (0.2-1); Calcium 8.2 mg/dl (8.5-10.1); Creatinine Clr Calc Pharmacy 106.2 ml/min; Est GFR (African American) 118.5; Est GFR (Non-African American) 102.2; Globulin 3.7 gm/dl (2.5-4.0); Magnesium 2.1 mg/dl (1.8-2.4); Potassium 3.7 mmol/L (3.5-5.1); Total Protein 5.9 gm/dl (6.4-8.2)
[2020-04-04] MEDS ORDERED: AMIODARONE 200 MG TAB PO SCH (09:00)
[2020-04-04] MEDS ORDERED: MULTIVITAMIN TAB PO SCH (09:00)
--- NOTE | 2020-04-04 14:15 | Discharge Summary ---
Date of Service April 04, 2020 Admission HPI Per Admitting Provider 69yo female with history of pancreatic ca s/p biliary stent in 09/2019 and 11/2019, recent saddle PE leading to brief cardiac arrest s/p transfer to [facility] with subsequent embolectomy and PFO repair along with IVC filter placement (discharged home on 03/27/2020 with eliquis and home PT) -- presents from home with c/o fall last night about 7pm. Denies prodromal dizziness, presyncope, or syncope. She was coming into her house from outside and simply lost her balance. She fell onto her lawn but did hit her head. She otherwise felt ok last night. This am upon awakening she felt fine but contacted her doctors at [facility] who advised ER evaluation. Denies anorexia, fevers, chills, dypsnea, chest pain, abdominal pain, nausea, emesis, loss of taste or smell, diarrhea. She does have dysuria - noticed it for 2-3 days. Her oncologist is Dr Seamus Cordova from the [facility]. She last saw him several weeks ago when she had the cardiac arrest (this occurred IN the cancer center). She has received chemotherapy under Dr Cordova's guidance over the last few months. [place] has advised holding chemotherapy for several weeks in light of recent cardiac arrest and saddle PE. Principal Diagnosis Hypokalemia, UTI, fall, hypotension Discharge Exam Constitutional + thin (With alopecia) Eyes + anicteric sclerae Neck trachea midline, no thyromegaly Respiratory normal respiratory effort, lungs clear to auscultation Cardiovascular Rate/Rhythm: regular rate and regular rhythm Heart Sounds: no murmur Extremities: + edema (Left leg with 2+ pitting edema) Chest (Breasts) Chest: + abnormal inspection of chest (Midline sternotomy incisional wound is healing, no surrounding erythema or drainage) Gastrointestinal (Abdomen) normal bowel sounds, soft, nontender, no hepatosplenomegaly Musculoskeletal Extremities: no cyanosis and no clubbing Skin no rashes, warm and dry Neurologic moves all extremities and awake; no focal motor deficits Psychiatric A+Ox3, euthymic affect Lymphatic no lymphedema Discharge Data Allergies Allergy/AdvReac Type Severity Reaction Status Date / Time No Known Allergies Allergy Unverified 04/03/20 12:23 Consultations 04/03/20 14:22 ED Decision to Admit Stat Ordered Studies 04/03/20 11:27 CT head/brain wo con Stat 04/03/20 14:48 US gallbladder Stat 04/03/20 17:24 MR brain wo/w con Routine Hospital Course (1) Fall: accidental. Could be secondary to generalized weakness from chemotherapy, recent prolonged hospitalization, left lower extremity DVT with swelling causing difficulty with ambulation no prodromal symptoms (lightheadedness, dizziness, palpitations, chest pain, etc). with that said her potassium and mag levels are low, and she likely has a UTI - all of which could have made her weak and enhancing her fall risk. replaced electrolyte disturbances and much improved. treat UTI as below. PT OT recommends home with family MRI of the brain negative for stroke or metastatic disease (2) Hypokalemia: severe at 2.6 on admission-replaced and now resolved. acute on chronic - dating back to early 2019 she has had persistent hypokalemia. uncertain if this is a side effect of a chemo agent for her pancreatic ca. uncertain if related to poor dietary intake. uncertain if this could be renal wasting. she is NOT on diuretic therapy. given IV KCL in ER. started K-dur 40meq TID. add KCL to basal fluids. replace low mag. checked random urine potassium for renal wasting. Resolved-recommend continuing potassium chloride 8 mEq p.o. once daily at home and check BMP with PCP in 1 week (3) UTI (urinary tract infection): UA abnormal and urine culture growing gram-negative rods on discharge She was having dysuria and color changes to the urine which have now completely cleared up after 1 dose of Rocephin Discharged home on cefdinir 30 mg p.o. twice daily times a total of 7-day course follow urine culture after discharge with PCP. follow blood cultures no growth to date and no signs of sepsis . (4) Left leg weakness: Patient now reports that she has been having bilateral left greater than right lower extremity weakness since she started chemotherapy. May be worsened with recent left leg DVT which is causing significant edema in light of her exam findings-a MRI brain was checked- r/o subacute stroke; r/o metastatic disease. Brain MRI was normal The patient declined a lumbar spine MRI at this time PT, OT evals recommend home with family. (5) Hypomagnesemia: Replaced and resolved (6) Abnormal LFTs: at baseline LFTs are abnormal 2nd to pancreatic cancer compression of the biliary tree. however, LFTs are were much worse than baseline upon admission and then were significantly improved by the day after admission Right upper quadrant ultrasound showed cholelithiasis, dilated CBD with stent in place in the CBD, pancreatic mass, no evidence of cholecystitis LFT significantly improved on their own but were not quite back to normal on the day of discharge Doubt that amiodarone is contributing Follow LFTs in 1 week to make sure that are improving Could have been secondary to hypotension and "shock liver" (7) Saddle pulmonary embolus: 03/17/20 with resulting brief cardiac arrest - s/p CPR with successful resuscitation. transferred to [place]. underwent embolectomy and PFO closure. then underwent IVC filter placement. did not tolerate coumadin with elevated INRs. changed to eliquis BID on recommendation from [place] heme/onc. o2 sats 100% on room air (8) History of embolectomy: see above (9) S/P patent foramen ovale closure: [facility] - in the context of pulmonary artery embolectomy (10) Left leg DVT: with resulting saddle PE (11) Cardiac arrest: 2nd to massive / saddle PE - 03/17/20 (12) S/P IVC filter: placed at [facility] during recent stay (13) Pancreatic cancer: diagnosed 09/2019 follows with [facility] oncology and Dr Art pedersen s/p chemo this spring (14) PAF (paroxysmal atrial fibrillation): post-op -- while at [facility] s/p spontaneous conversion to NSR placed on amiodarone to maintain NSR Doubt that amiodarone is causing worsening LFTs as have improved significantly since admission and remains on amiodarone -will reduce dose of metoprolol down to 25 mg twice daily from 50 mg twice daily due to hypotension on admission which may have caused her fall -Okay to continue lisinopril (15) Severe protein-calorie malnutrition: 40+ pounds of weight loss since 2019, secondary to pancreatic cancer cont MVI (16) DVT prophylaxis: eliquis BID Stable for discharge to home today Total Time Total Time Spent Total Time Spent (In Minutes): Greater than 30 minutes Total Time Includes: Examination of the Patient, Discharge Planning and Medication Reconciliation Discharge Plan Discharge Items Patient Disposition: Home - Self-Care Reason For Visit: HYPOKALEMIA,UTI,FALL,HYPOMAGNESEMIA Discharge Diagnosis: Hypokalemia, fall, UTI Condition on Discharge: Fair Activity: As commented below Lifting: Gradually increase as tolerated Bathing: No limitations Exercise/Sports: As tolerated Exercise Comment: With family assistance to prevent falls Weightbearing: Full weightbearing Non-emergency contact: Primary Care Provider Call non-emergency contact if: you have any medication questions and your symptoms worsen Follow-up/Referrals: Sugar Campos MD [Primary Care Provider] - (Please follow-up within 1-2 weeks.) Diet: Carb Consistent or DM2 Addtl Attending Provider Instructions: Please finish out the course of antibiotics for urinary tract infection as p rescribed. The urine culture was growing bacteria but the specific bacteria had not yet been identified at the time of your discharge. Please have your primary care physician follow-up on the final result of this urine culture to ensure you are on the correct antibiotic. Please restart the daily potassium pill that you have at your home; a new prescription for this is also been called in in case you need a refill. Because your blood pressures were low and this may have contributed to your fall, your metoprolol dose was cut in half down to 25 mg twice a day. You can continue your lisinopril 2.5 mg once daily as before. Please have your primary care physician check your potassium levels and liver enzymes within 1 to 2 weeks to ensure that they are normal. Continue outpatient follow-up with your oncologist as before. Pending Studies at Discharge: Yes (Urine culture final result, blood culture final result-no growth to date) Stand-Alone Forms: My [facility] Medications and DC Order Prescriptions: New potassium chloride 8 mEq tablet extended release 8 meq PO DAILY Qty: 30 RF: 0 cefdinir 300 mg capsule 300 mg PO BID Qty: 12 RF: 0 Continued multivitamin Tablet 1 tab PO QAM RF: 0 amiodarone 200 mg Tablet 200 mg PO QAM RF: 0 lisinopril 2.5 mg Tablet 2.5 mg PO QAM RF: 0 Eliquis 5 mg Tablet 5 mg PO BID RF: 0 Changed metoprolol tartrate 50 mg Tablet 25 mg PO BID Qty: 0 RF: 0 Discharge Orders: Discharge Order (Routine); Ordered 04/04/20 Ordered By: Darby Perez Admission Data Admit Date/Time: 04/03/20 14:59 Attending Provider: Darby Perez Admit Provider: Ender Ordoñez Primary Care Provider: Sugar Campos Other Providers: Ender Ordoñez ; [facility] Coding Level of Care Code D/C Day Management >30 mins Diagnoses Fall W19.XXXA Encounter type: initial encounter Hypokalemia E87.6 UTI (urinary tract infection) N30.00 Urinary tract infection type: acute cystitis Hematuria presence: without hematuria Left leg weakness R29.898 Hypomagnesemia E83.42 Abnormal LFTs R94.5 Saddle pulmonary embolus I26.02 Chronicity: unspecified Acute cor pulmonale presence: with acute cor pulmonale History of embolectomy Z98.890 S/P patent foramen ovale closure Z87.74 Left leg DVT I82.402 Affected thrombotic vein of extremity: unspecified vein of extremity Chronicity: unspecified Cardiac arrest I46.9 S/P IVC filter Z95.828 Pancreatic cancer C25.9 Pancreatic malignancy location: unspecified PAF (paroxysmal atrial fibrillation) I48.0 Severe protein-calorie malnutrition E43 DVT prophylaxis Z29.9
[2020-04-04] MEDS ORDERED: cefTRIAXone SODIUM 2,000 MG in DEXTROSE 5% 50 ML IV SCH (15:00)
== END 2020-04-04 15:13 | disposition home health service (06) | DRG 689 ==
LOC: ED 09:41 → SUATTDRO 14:59 → 2W 14:59

== ENCOUNTER 2021-07-17 18:01 | Inpatient (IN) ==
--- NOTE | 2021-07-17 18:10 | Emergency Department Note ---
Impression & Plan Acute upper gastrointestinal bleeding, Pancreatic cancer, Fever ED Provider Note NAME: JUAN WATKINS AGE: 70 SEX: F : 1950 ARRIVES VIA: Ambulance INFORMANT: patient, ED PROVIDER(S): Fausto Ba MD Chief Complaint: GI bleed HPI: Patient does present with concern for GI bleeding. The patient reportedly has had some vomiting beginning around 2 PM today that she has had 6 bouts of hematemesis. The patient is on Eliquis and has a known history of pancreatic cancer. Patient denies any fevers chills chest pains or shortness of breath. The patient denies any recent trauma or travel. Patient does feel somewhat cold. Patient does complain of upper abdominal pain. Patient has had recent bowel movement that she states has had some blood-streaked stools. ROS: See HPI for pertinent positives and negatives. A total of 10 systems were reviewed and otherwise negative. Past medical history: See below Surgical history: See below Social history: See below Physical Exam: GENERAL: Ill in appearance, wearing a mask. EYE EXAM: Normal conjunctiva. PERRL, no anisocoria and EOM's grossly intact w/o pain. NECK: Supple, no nuchal rigidity, no adenopathy, non-tender. No signs of meningismus. LUNGS: Clear to auscultation. Normal chest wall mechanics. Chest: Port in the right chest. HEART: Tachycardic and regular, no MRG. ABDOMEN: Abdomen soft, upper abdominal pain without lower abdominal pain, normo- active bowel sounds, no masses, no rebound or guarding. BACK: No CVA TTP. SKIN: No rashes and no bruising. UPPER EXTREMITIES: Upper extremities are grossly normal. LOWER EXTREMITIES: Grossly normal, no edema. NEURO EXAM: A&O x3, cranial nerves II-XII grossly intact, normal speech, moves all 4 extremities on command w/o issue. Differential diagnoses: Diverticulosis, AVM, coagulopathy, colitis, inflammatory bowel disease, malignancy, Dari-Franco tear, esophagitis, peptic ulcer dise ase, variceal bleed, gastritis, epistaxis, fissure, hemorrhoids, as well as other pathologies. Course: Patient was seen and evaluated the bedside. Full history physical exam was performed. EKG interpreted by me Sinus tachycardia, rate of 119, normal intervals, normal axis. Imaging Studies: See Below Cardiac monitoring: An order was placed for continuous cardiac monitoring. The monitor shows a rate of 115 with tachycardic and regular rhythm. MDM: Patient does present due to concern for acute GI bleed. The patient did have blood work completed along with a [id number] BMP. The patient was consented for blood and did have a type and screen completed. CT abdomen pelvis ordered given patient's known history of pancreatic cancer with nausea vomiting and abdominal pain. Patient was noted to be febrile so the patient was ordered antibiotics and a lactate. Patient's hemoglobin is less than 7. The patient was ordered 2 units. I did speak with the on-call local announcer Dr. Schultz who agreed that the patient would benefit from Kcentra. This was ordered given. The patient did go to CT scan. Patient CT showed the pancreatic head mass. This appears relatively stable. Patient is unchanged positioning of her common bile duct stents. Patient does have some moderate bowel wall thickening of the cecum. There may be a nonspecific colitis. I also had speaking with Dr. Can with GI who agreed with the current plan of care and will plan for EGD tomorrow unless the patient decompensates. Upon reassessment the patient was having improved pain no further nausea. The patient's heart rate did improve. I did speak with the on- call hospitalist Dr. Saldana, and the patient was admitted to the medicine service. Critical Care: I have personally spent 95 minutes of critical care time in direct management of this patient. This includes bedside care, interpretation of diagnostic studies, and testing, discussion with consultants, patient, and family members, and other require inpatient management activities. This 95 minutes is in excess of all separately billable procedures. Past Med/Surg History Medical History Anemia Cardiac arrest 02/2020 - 2nd to massive/saddle PE History of biliary stent insertion Left leg DVT 02/2020 - with saddle PE PAF (paroxysmal atrial fibrillation) 03/2020 - post-op from embolectomy for saddle PE ([facility]) (follows with Dr. 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 Type 2 diabetes mellitus diet controlled Surgical History H/O tubal ligation History of colonoscopy History of embolectomy 02/2020 - [facility] - for massive saddle PE History of esophagogastroduodenoscopy (EGD) History of vascular access device port Rt chest S/P IVC filter 02/2020 - [facility] S/P patent foramen ovale closure 02/2020 - [facility] Family History Sister Breast cancer Cancer Father Depression Heart disease Hypertension Mother Kidney disease Sister Pancreatic adenocarcinoma diagnosed one week after patient was diagnosed Other No family history of adverse response to anesthesia Denies family history of Ovarian cancer Prostate cancer Myocardial infarction Colorectal cancer Social History Smoking Status: Never smoker Second Hand Exposure: No; Hx Alcohol Use: No Hx Substance Use: No Preferred Language: Beninese Communication Ability: Effective Visual Impairment: No Limitations Hearing Ability: Hard of Hearing Salvager Helper Required: No Beliefs That Will Affect Care: None marital status: Current Living Situation: Spouse and Family Current Living Situation Comment: lives with and son in [place]; has 5 kids 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 How many Children do You have: 5 Feels Safe at Home: Yes Childhood Exposure to Second-Hand Smoke: Yes caffeine: Yes (one cup in the am) during the past year weight has: decreased > 10 lbs Dental Care, Regularly: No Physical Activity Frequency: Does not Exercise Seatbelt Use: always Sunscreen Use: No Assistive Devices: Denture - Upper Allergies Allergies Allergy/AdvReac Type Severity Reaction Status Date / Time No Known Allergies Allergy Verified 07/17/21 19:15 Home Meds Home Medications Medication Instructions Recorded Confirmed vitamins A,C,S-lrtl-zrboxh 7,160 1 tab PO BID 05/21/21 07/17/21 unit-113 mg-100 unit tablet (PreserVision AREDS) potassium chloride 20 mEq 20 meq PO DAILY 07/10/21 07/17/21 tablet,extended release Lactobacillus acidophilus 10 10,000 mmu cells PO DAILY 07/17/21 07/17/21 billion cell capsule (Probiotic) gemcitabine 1 gram intravenous 0 g IV DIRECTED 07/17/21 07/17/21 solution Previous Rx's Medication Instructions Recorded metoprolol tartrate 50 mg tablet 25 mg PO BID #180 tab 07/25/20 apixaban 5 mg tablet (Eliquis) 5 mg PO BID #180 tab 04/30/21 pantoprazole 40 mg tablet,delayed 40 mg PO DAILY #30 tab 06/20/21 release (Protonix) Results & Data (ED) Vital Signs Vital Signs - 24 hr 07/17/21 18:00 07/17/21 18:31 07/17/21 18:56 Temperature 39.8 C H Temperature Source Oral Pulse Rate 118 H 123 H 116 H Pulse Rate from SpO2 Sensor 121 H Pulse Rhythm Regular Respiratory Rate 18 18 19 Respiratory Effort / Characteristics Non-Labored Respiratory Depth Normal Respiratory Pattern Regular Blood Pressure 138/86 143/52 H Blood Pressure Mean 103 82 Blood Pressure Position Left Lateral Pulse Oximetry 98 98 100 Oxygen Delivery Method Room Air Room Air Room Air Sepsis Recent Fever Within 48 Hours No Sepsis New/Unexplained Change in Mental Status No Sepsis Action Taken by Nursing No Action Required 07/17/21 19:00 07/17/21 19:30 07/17/21 20:00 Temperature Temperature Source Pulse Rate 115 H 108 H 105 H Pulse Rate from SpO2 Sensor 114 H 107 H 105 H Pulse Rhythm Respiratory Rate 19 26 H 3 L Respiratory Effort / Characteristics Respiratory Depth Respiratory Pattern Blood Pressure 142/73 H 132/66 121/61 Blood Pressure Mean 96 88 81 Blood Pressure Position Pulse Oximetry 99 99 98 Oxygen Delivery Method Sepsis Recent Fever Within 48 Hours Sepsis New/Unexplained Change in Mental Status Sepsis Action Taken by Nursing 07/17/21 20:42 07/17/21 20:50 07/17/21 21:00 Temperature Temperature Source Pulse Rate 101 H 98 H 100 H Pulse Rate from SpO2 Sensor 100 H 98 H 100 H Pulse Rhythm Respiratory Rate 19 20 19 Respiratory Effort / Characteristics Respiratory Depth Respiratory Pattern Blood Pressure Blood Pressure Mean Blood Pressure Position Pulse Oximetry 100 100 100 Oxygen Delivery Method Sepsis Recent Fever Within 48 Hours Sepsis New/Unexplained Change in Mental Status Sepsis Action Taken by Nursing 07/17/21 21:05 07/17/21 21:15 07/17/21 21:30 Temperature 37.5 C 37.2 C 36.8 C Temperature Source Oral Oral Oral Pulse Rate 99 H 99 H 98 H Pulse Rate from SpO2 Sensor 99 H 98 H Pulse Rhythm Respiratory Rate 20 21 21 Respiratory Effort / Characteristics Respiratory Depth Respiratory Pattern Blood Pressure 95/60 L 108/53 L 105/52 L Blood Pressure Mean 71 71 69 Blood Pressure Position Pulse Oximetry 100 99 99 Oxygen Delivery Method Sepsis Recent Fever Within 48 Hours Sepsis New/Unexplained Change in Mental Status Sepsis Action Taken by Nursing 07/17/21 21:45 07/17/21 21:47 07/17/21 22:00 Temperature 36.6 C 36.6 C Temperature Source Oral Oral Pulse Rate 96 H 91 H Pulse Rate from SpO2 Sensor 96 H 92 H Pulse Rhythm Respiratory Rate 12 18 Respiratory Effort / Characteristics Respiratory Depth Respiratory Pattern Blood Pressure 102/53 L 112/55 L Blood Pressure Mean 69 74 Blood Pressure Position Pulse Oximetry 99 99 Oxygen Delivery Method Sepsis Recent Fever Within 48 Hours Sepsis New/Unexplained Change in Mental Status Sepsis Action Taken by Nursing 07/17/21 22:15 07/17/21 22:30 07/17/21 22:45 Temperature 36.8 C Temperature Source Oral Pulse Rate 91 H 88 89 Pulse Rate from SpO2 Sensor 92 H 87 89 Pulse Rhythm Respiratory Rate 19 18 12 Respiratory Effort / Characteristics Respiratory Depth Respiratory Pattern Blood Pressure 111/57 L 110/58 L 116/60 Blood Pressure Mean 75 75 78 Blood Pressure Position Pulse Oximetry 99 99 100 Oxygen Delivery Method Sepsis Recent Fever Within 48 Hours Sepsis New/Unexplained Change in Mental Status Sepsis Action Taken by Nursing 07/17/21 23:15 07/17/21 23:42 07/18/21 00:19 Temperature 37.3 C 37.2 C 36.7 C Temperature Source Oral Axillary Oral Pulse Rate 94 H 103 H 109 H Pulse Rate from SpO2 Sensor Pulse Rhythm Respiratory Rate 12 18 16 Respiratory Effort / Characteristics Respiratory Depth Respiratory Pattern Blood Pressure 128/68 167/108 H 180/107 H Blood Pressure Mean 88 127 131 Blood Pressure Position Lying Lying Pulse Oximetry 100 99 100 Oxygen Delivery Method Sepsis Recent Fever Within 48 Hours Sepsis New/Unexplained Change in Mental Status Sepsis Action Taken by Nursing 07/18/21 00:35 07/18/21 00:50 Temperature 37.0 C 36.7 C Temperature Source Axillary Axillary Pulse Rate 97 H 103 H Pulse Rate from SpO2 Sensor Pulse Rhythm Respiratory Rate 19 14 Respiratory Effort / Characteristics Respiratory Depth Respiratory Pattern Blood Pressure 138/69 146/102 H Blood Pressure Mean 92 116 Blood Pressure Position Lying Pulse Oximetry 99 100 Oxygen Delivery Method Sepsis Recent Fever Within 48 Hours Sepsis New/Unexplained Change in Mental Status Sepsis Action Taken by Shelter Medications Current Medication List: was personally reviewed by wy Laboratory Data Attestation: I reviewed the patient's lab results. Result diagrams: 07/17/21 18:36 07/17/21 18:36 Lab Results 07/17/21 07/17/21 07/17/21 Range/Units 18:36 18:36 18:36 WBC 11.15 H (4.8-10.8) K/uL RBC 1.96 L (4.2-5.4) M/uL Hgb 6.2 L* (12.0-16.0) g/dL Hct 19.1 L* (37-47) % MCV 97.4 (80-100) fL MCH 31.6 (25-34) pg MCHC 32.5 (32-36) g/dL RDW Std Deviation 64.5 H (36.4-46.3) fL RDW Coeff of Axel 18.6 H (11.5-14.5) % Plt Count 370 (130-400) K/uL MPV 9.6 (7.4-10.4) fL Immature Gran % (Auto) 0.5 % Neut % (Auto) 87.0 % Lymph % (Auto) 5.4 % Otero % (Auto) 6.8 % Eos % (Auto) 0.2 % Baso % (Auto) 0.1 % Neut # (Auto) 9.70 H (1.4-6.5) K/uL Lymph # (Auto) 0.60 L (1.2-3.4) K/uL Otero # (Auto) 0.76 H (0.11-0.59) K/uL Eos # (Auto) 0.02 (0-0.5) K/uL Baso # (Auto) 0.01 (0-0.2) K/uL Immature Gran # (Auto) 0.06 H (0.00-0.02) K/uL Polychromasia 1+ Anisocytosis Present PT 13.5 H (9.0-12.0) Seconds INR 1.4 H (0.9-1.1) APTT 21.4 (21.0-31.0) Seconds PTT Ratio 0.8 Fibrinogen (184-400) mg/dl Heparin Anti-Xa, LM Wt (< 0.10) IU/ML Sodium (136-145) mmol/L Potassium (3.5-5.1) mmol/L Chloride (98-107) mmol/L Carbon Dioxide (21-32) mmol/L Anion Gap (3-11) BUN (7-18) mg/dl Creatinine (0.6-1.2) mg/dl Est Cr Clr Drug Dosing Est GFR ( Amer) ml/min Est GFR (Non-Af Amer) ml/min BUN/Creatinine Ratio (10-20) Glucose (70-99) mg/dl Lactate (0.4-2.0) mmol/L Calcium (8.5-10.1) mg/dl Total Bilirubin (0.2-1) mg/dl AST (15-37) U/L ALT (12-78) U/L Alkaline Phosphatase (45-117) U/L Total Protein (6.4-8.2) gm/dl Albumin (3.4-5.0) gm/dl Globulin (2.5-4.0) gm/dl Albumin/Globulin Ratio (0.9-2) Lipase (73-393) U/L COVID-19 Eval Order SARS-CoV-2 (PCR) (Negative) Blood Type B Positive Antibody Screen NEGATIVE Crossmatch See Detail 07/17/21 07/17/21 07/17/21 Range/Units 18:36 18:36 18:36 WBC (4.8-10.8) K/uL RBC (4.2-5.4) M/uL Hgb (12.0-16.0) g/dL Hct (37-47) % MCV (80-100) fL MCH (25-34) pg MCHC (32-36) g/dL RDW Std Deviation (36.4-46.3) fL RDW Coeff of Axel (11.5-14.5) % Plt Count (130-400) K/uL MPV (7.4-10.4) fL Immature Gran % (Auto) % Neut % (Auto) % Lymph % (Auto) % Otero % (Auto) % Eos % (Auto) % Baso % (Auto) % Neut # (Auto) (1.4-6.5) K/uL Lymph # (Auto) (1.2-3.4) K/uL Otero # (Auto) (0.11-0.59) K/uL Eos # (Auto) (0-0.5) K/uL Baso # (Auto) (0-0.2) K/uL Immature Gran # (Auto) (0.00-0.02) K/uL Polychromasia Anisocytosis PT (9.0-12.0) Seconds INR (0.9-1.1) APTT (21.0-31.0) Seconds PTT Ratio Fibrinogen 304 (184-400) mg/dl Heparin Anti-Xa, LM Wt 1.16 (< 0.10) IU/ML Sodium 142 (136-145) mmol/L Potassium 4.3 (3.5-5.1) mmol/L Chloride 111 H (98-107) mmol/L Carbon Dioxide 21 (21-32) mmol/L Anion Gap 10.0 (3-11) BUN 24 H (7-18) mg/dl Creatinine 0.99 (0.6-1.2) mg/dl Est Cr Clr Drug Dosing Not Reportable Est GFR ( Amer) 66.9 ml/min Est GFR (Non-Af Amer) 57.7 ml/min BUN/Creatinine Ratio 24.2 H (10-20) Glucose 227 H (70-99) mg/dl Lactate (0.4-2.0) mmol/L Calcium 8.0 L (8.5-10.1) mg/dl Total Bilirubin 1.5 H (0.2-1) mg/dl AST 215 H (15-37) U/L ALT 66 (12-78) U/L Alkaline Phosphatase 552 H (45-117) U/L Total Protein 5.3 L (6.4-8.2) gm/dl Albumin 2.2 L (3.4-5.0) gm/dl Globulin 3.1 (2.5-4.0) gm/dl Albumin/Globulin Ratio 0.7 L (0.9-2) Lipase 39 L (73-393) U/L COVID-19 Eval Order SARS-CoV-2 (PCR) (Negative) Blood Type Antibody Screen Crossmatch 07/17/21 07/17/21 07/17/21 Range/Units 19:37 21:25 21:25 WBC (4.8-10.8) K/uL RBC (4.2-5.4) M/uL Hgb (12.0-16.0) g/dL Hct (37-47) % MCV (80-100) fL MCH (25-34) pg MCHC (32-36) g/dL RDW Std Deviation (36.4-46.3) fL RDW Coeff of Axel (11.5-14.5) % Plt Count (130-400) K/uL MPV (7.4-10.4) fL Immature Gran % (Auto) % Neut % (Auto) % Lymph % (Auto) % Otero % (Auto) % Eos % (Auto) % Baso % (Auto) % Neut # (Auto) (1.4-6.5) K/uL Lymph # (Auto) (1.2-3.4) K/uL Otero # (Auto) (0.11-0.59) K/uL Eos # (Auto) (0-0.5) K/uL Baso # (Auto) (0-0.2) K/uL Immature Gran # (Auto) (0.00-0.02) K/uL Polychromasia Anisocytosis PT (9.0-12.0) Seconds INR (0.9-1.1) APTT (21.0-31.0) Seconds PTT Ratio Fibrinogen (184-400) mg/dl Heparin Anti-Xa, LM Wt (< 0.10) IU/ML Sodium (136-145) mmol/L Potassium (3.5-5.1) mmol/L Chloride (98-107) mmol/L Carbon Dioxide (21-32) mmol/L Anion Gap (3-11) BUN (7-18) mg/dl Creatinine (0.6-1.2) mg/dl Est Cr Clr Drug Dosing Est GFR ( Amer) ml/min Est GFR (Non-Af Amer) ml/min BUN/Creatinine Ratio (10-20) Glucose (70-99) mg/dl Lactate 3.3 H* (0.4-2.0) mmol/L Calcium (8.5-10.1) mg/dl Total Bilirubin (0.2-1) mg/dl AST (15-37) U/L ALT (12-78) U/L Alkaline Phosphatase (45-117) U/L Total Protein (6.4-8.2) gm/dl Albumin (3.4-5.0) gm/dl Globulin (2.5-4.0) gm/dl Albumin/Globulin Ratio (0.9-2) Lipase (73-393) U/L COVID-19 Eval Order Covid19 at [facility] SARS-CoV-2 (PCR) NEGATIVE (Negative) Blood Type Antibody Screen Crossmatch 07/17/21 Range/Units 21:34 WBC (4.8-10.8) K/uL RBC (4.2-5.4) M/uL Hgb (12.0-16.0) g/dL Hct (37-47) % MCV (80-100) fL MCH (25-34) pg MCHC (32-36) g/dL RDW Std Deviation (36.4-46.3) fL RDW Coeff of Axel (11.5-14.5) % Plt Count (130-400) K/uL MPV (7.4-10.4) fL Immature Gran % (Auto) % Neut % (Auto) % Lymph % (Auto) % Otero % (Auto) % Eos % (Auto) % Baso % (Auto) % Neut # (Auto) (1.4-6.5) K/uL Lymph # (Auto) (1.2-3.4) K/uL Otero # (Auto) (0.11-0.59) K/uL Eos # (Auto) (0-0.5) K/uL Baso # (Auto) (0-0.2) K/uL Immature Gran # (Auto) (0.00-0.02) K/uL Polychromasia Anisocytosis PT (9.0-12.0) Seconds INR (0.9-1.1) APTT (21.0-31.0) Seconds PTT Ratio Fibrinogen (184-400) mg/dl Heparin Anti-Xa, LM Wt (< 0.10) IU/ML Sodium (136-145) mmol/L Potassium (3.5-5.1) mmol/L Chloride (98-107) mmol/L Carbon Dioxide (21-32) mmol/L Anion Gap (3-11) BUN (7-18) mg/dl Creatinine (0.6-1.2) mg/dl Est Cr Clr Drug Dosing Est GFR ( Amer) ml/min Est GFR (Non-Af Amer) ml/min BUN/Creatinine Ratio (10-20) Glucose (70-99) mg/dl Lactate 2.3 H* (0.4-2.0) mmol/L Calcium (8.5-10.1) mg/dl Total Bilirubin (0.2-1) mg/dl AST (15-37) U/L ALT (12-78) U/L Alkaline Phosphatase (45-117) U/L Total Protein (6.4-8.2) gm/dl Albumin (3.4-5.0) gm/dl Globulin (2.5-4.0) gm/dl Albumin/Globulin Ratio (0.9-2) Lipase (73-393) U/L COVID-19 Eval Order SARS-CoV-2 (PCR) (Negative) Blood Type Antibody Screen Crossmatch Administered Medications Pantoprazole Sodium 40 mg/ (Dextrose) 100 mls @ 20 mls/hr IV Q5H BENNIE Stop: 08/16/21 18:44 Last Admin: 07/18/21 00:06 Dose: 8 mg/hr, 20 mls/hr Documented by: [id number] Infusion: 07/18/21 00:06 Dose: 8 mg/hr, 20 mls/hr Documented by: [id number] Admin: 07/17/21 19:16 Dose: 8 mg/hr, 20 mls/hr Documented by: [id number] Discontinued Medications Diphenhydramine HCl (Diphenhydramine 50 Mg/Ml Vial) 12.5 mg IV NOW STA Stop: 07/17/21 20:54 Last Admin: 07/17/21 21:05 Dose: 12.5 mg Documented by: [id number] Diphenhydramine HCl (Diphenhydramine 50 Mg/Ml Vial) Confirm Administered Dose 50 mg .ROUTE .STK-MED ONE Stop: 07/17/21 20:55 Last Admin: 07/17/21 21:05 Dose: Not Given Documented by: [id number] Pantoprazole Sodium (Protonix Bolus/Drip) 0 mls @ 1 mls/hr IV ONE STA Stop: 07/17/21 18:19 Last Admin: 07/17/21 19:16 Dose: Not Given Documented by: [id number] Pantoprazole Sodium 80 mg/ (Dextrose) 120 mls @ 400 mls/hr IV NOW ONE Stop: 07/17/21 18:35 Last Infusion: 07/17/21 19:16 Dose: 0 mls/hr Documented by: [id number] Admin: 07/17/21 18:54 Dose: 400 mls/hr Documented by: [id number] Piperacillin Sod/Tazobactam (Sod 4.5 gm/ Dextrose) 120 mls @ 200 mls/hr IV NOW ONE; Protocol Stop: 07/17/21 19:51 Last Infusion: 07/17/21 22:50 Dose: 0 mls/hr Documented by: [id number] Admin: 07/17/21 20:09 Dose: 200 mls/hr Documented by: [id number] Acetaminophen (Ofirmev) 1,000 mg in 100 mls @ 400 mls/hr IV NOW STA Stop: 07/17/21 19:38 Last Infusion: 07/17/21 20:45 Dose: 0 mls/hr Documented by: [id number] Admin: 07/17/21 20:01 Dose: 400 mls/hr Documented by: [id number] Prothrombin Complex Concent ( (Human) 2,000 units/ Syringe) 80 mls @ 10 mls/min IV NOW STA Stop: 07/17/21 20:03 Last Admin: 07/17/21 20:09 Dose: 10 mls/min Documented by: [id number] Calcium Gluconate () 1,000 mg in 60 mls @ 240 mls/hr IV NOW STA Stop: 07/17/21 21:25 Last Infusion: 07/17/21 22:50 Dose: 0 mls/hr Documented by: [id number] Admin: 07/17/21 21:45 Dose: 240 mls/hr Documented by: [id number] Sodium Chloride (Nss 1000ml) 1,000 mls @ 999 mls/hr IV .Q1H1M ONE Stop: 07/17/21 22:11 Last Infusion: 07/17/21 22:50 Dose: 0 mls/hr Documented by: [id number] Admin: 07/17/21 21:45 Dose: 999 mls/hr Documented by: [id number] Promethazine HCl 25 mg/ Sodium (Chloride) 51 mls @ 204 mls/hr IV ONE ONE Stop: 07/18/21 00:14 Last Infusion: 07/18/21 00:15 Dose: 0 mls/hr Documented by: [id number] Admin: 07/17/21 23:58 Dose: 204 mls/hr Documented by: [id number] Ioversol (Optiray 320 100ml) 94 ml IV ONCE ONE Stop: 07/17/21 19:33 Last Admin: 07/17/21 19:32 Dose: 1 ml Documented by: [id number] Miscellaneous Information (Dc All Anticoagulants ) 1 ea N/A NOW ONE Stop: 07/17/21 19:57 Last Admin: 07/17/21 23:11 Dose: 1 ea Documented by: [id number] Ondansetron HCl (Ondansetron Inj 2 Mg/Ml 2 Ml Vial) 4 mg IV NOW STA Stop: 07/17/21 18:50 Last Admin: 07/17/21 19:16 Dose: 4 mg Documented by: [id number] Imaging Data Radiologist's Impression: Abdomen/Pelvis CT 07/17/21 18:[address] WITH IV CONTRAST CT DOSE: 295.94 mGy.cm HISTORY: Acute GI bleed with nausea and vomiting. History of pancreatic carcinoma Gi bleeding, n/v, h/o panc CA TECHNIQUE: Multiaxial CT images of the abdomen and pelvis were performed following the IV administration of 94 cc of Optiray, A dose lowering technique was utilized adhering to the principles of ALARA. COMPARISON STUDY: CT abdomen and pelvis 06/22/2021, 04/16/2021, 10/05/2019. FINDINGS: Prior median sternotomy with findings suggestive of CABG. A superior approach catheter is noted terminating within the infrahepatic IVC. The lung bases appear clear. No pneumatosis or pneumoperitoneum. The spleen and adrenal glands are unremarkable. Atrophic pancreas with upstream pancreatic dilation redemonstrated. Pancreatic head mass with ill-defined margins redemonstrated measuring up to approximately 3.5 cm in AP dimension. Intrahepatic and extrahepatic biliary ductal dilation with associated pneumobilia redemonstrated along with periportal edema. No hepatic metastatic lesions identified. There are two common bile duct stents remain in satisfactory positioning. Biliary air and debris is again noted adjacent to the stent. Ch ronic wall thickening of the distal stomach and duodenum. Moderately distended gallbladder with associated wall thickening is unchanged. High-grade narrowing at the portal splenic confluence is unchanged. Unremarkable kidneys without hydronephrosis. Unremarkable urinary bladder. Vascular calcifications of the uterus. Atherosclerosis of the abdominal aorta. Intrahepatic IVC filter. No adenopathy. Small ill-defined abdominal pelvic ascites. Gaseous distention of the rectum. Moderate circumferential wall thickening of the cecum, ascending and proximal transverse colon. The appendix measures 7 mm and appears to be noninflamed. Mild generalized body wall edema. Degenerative changes of the spine, pelvis and hips. No suspicious bone lesions. IMPRESSION: 1. Infiltrative pancreatic head mass with ill-defined margins redemonstrated, the exact margins of the lesion are difficult to quantify however appears generally stable from the 06/22/2021 exam. 2. Severe narrowing of the portal splenic confluence is unchanged. 3. Body wall edema with small volume of abdominal pelvic ascites. 4. Unchanged positioning of the two common bile duct stents with persistent intrahepatic and extrahepatic biliary ductal dilation with pneumobilia. 5. Moderate wall thickening of the cecum, ascending and proximal transverse colon is suggestive of a nonspecific colitis. 6. No bowel obstruction. ACT 112: Negative or not required by law. The above report was generated using voice recognition software. It contain grammatical, syntax or spelling errors. Electronically signed by: Von Rico M.D. 07/17/2021 9:03 PM Discharge Plan Visit Data Chief Complaint: GI Bleed ED Provider: Fausto Ba Discharge Problem: Acute upper gastrointestinal bleeding, Pancreatic cancer, Fever Patient Disposition: Admitted As Inpatient Forms Stand Alone Forms: My [facility] [place] [employer] Prescriptions Prescriptions: No Action metoprolol tartrate 50 mg tablet 25 mg PO BID Qty: 180 RF: 3 Eliquis 5 mg tablet 5 mg PO BID Qty: 180 RF: 3 pantoprazole [Protonix] 40 mg tablet,delayed release (DR/EC) 40 mg PO DAILY Qty: 30 RF: 2 potassium chloride 20 mEq Tablet Extended Release 20 meq PO DAILY RF: 0 gemcitabine 1 gram Recon Soln 0 g IV DIRECTED RF: 0 Probiotic 10 billion cell Capsule 10,000 mmu cells PO DAILY RF: 0 PreserVision AREDS 7,160 unit- 113 mg-100 unit Tablet 1 tab PO BID RF: 0 Referrals Referrals: Sugar Cmapos MD [Primary Care Provider] -
[2021-07-17] MEDS ORDERED: PANTOprazole 80 MG in DEXTROSE 5% 100 ML IV ONE (18:18)
[2021-07-17] MEDS ORDERED: PANTOPRAZOLE BOLUS/DRIP 1 EA IV STA (18:18)
[2021-07-17] MEDS ORDERED: ONDANSETRON INJ 2 MG/ML 2 ML VIAL IV STA (18:49)
[2021-07-17 18:58] LABS: INR 1.4 (0.9-1.1); Partial Thromboplastin Ratio 0.8; Partial Thromboplastin Time 21.4 Seconds (21.0-31.0); Prothrombin Time 13.5 Seconds (9.0-12.0)
[2021-07-17 19:03] LABS: Hematocrit (blood only) 19.1 % (37-47); Hemoglobin 6.2 g/dL (12.0-16.0); Mean Corpuscular Hemoglobin 31.6 pg (25-34); Mean Corpuscular Hgb Conc 32.5 g/dL (32-36); Mean Corpuscular Volume 97.4 fL (80-100); Mean Platelet Volume 9.6 fL (7.4-10.4); Platelet Count 370 K/uL (130-400); RDW Coefficient of Variation 18.6 % (11.5-14.5); RDW Standard Deviation 64.5 fL (36.4-46.3); Red Blood Count 1.96 M/uL (4.2-5.4); White Blood Count 11.15 K/uL (4.8-10.8)
[2021-07-17] MEDS ORDERED: SODIUM CHLORIDE 0.9% 250 ML IV PRN (19:14)
[2021-07-17] MEDS: PANTOprazole 40 MG in DEXTROSE 5% 100 ML IV SCH (19:16)
[2021-07-17] MEDS ORDERED: PIPERACILL/TAZOBAC CONSULT ACTIVE PRN (19:16)
[2021-07-17] MEDS ORDERED: PIPERACILLIN/TAZOBACTAM 4.5 GM in DEXTROSE 5% 100 ML IV ONE (19:16)
[2021-07-17 19:20] LABS: Alanine Aminotransferase 66 U/L (12-78); Albumin Level 2.2 gm/dl (3.4-5.0); Aspartate Aminotransferase 215 U/L (15-37); BUN Creatinine Ratio 24.2 (10-20); Blood Urea Nitrogen 24 mg/dl (7-18); Carbon Dioxide 21 mmol/L (21-32); Chloride 111 mmol/L (98-107); Est GFR (African American) 66.9 ml/min; Est GFR (Non-African American) 57.7 ml/min; Glucose 227 mg/dl (70-99); Potassium 4.3 mmol/L (3.5-5.1); Sodium 142 mmol/L (136-145)
[2021-07-17 19:23] LABS: Albumin Globulin Ratio 0.7 (0.9-2); Alkaline Phosphatase 552 U/L (45-117); Bilirubin,Total 1.5 mg/dl (0.2-1); Globulin 3.1 gm/dl (2.5-4.0); Total Protein 5.3 gm/dl (6.4-8.2)
[2021-07-17] MEDS ORDERED: ACETAMINOPHEN 1,000 MG/100 ML VIAL IV STA (19:24)
[2021-07-17] MEDS ORDERED: OPTIRAY 320 100ml IV ONE (19:32)
[2021-07-17 19:50] LABS: Anisocytosis Present; Basophils # (auto) 0.01 K/uL (0-0.2); Basophils % (auto) 0.1 %; Eosinophils # (auto) 0.02 K/uL (0-0.5); Eosinophils % (auto) 0.2 %; Immature Granulocytes # (auto) 0.06 K/uL (0.00-0.02); Immature Granulocytes % (auto) 0.5 %; Lymphocytes % (auto) 5.4 %; Monocytes # (auto) 0.76 K/uL (0.11-0.59); Monocytes % (auto) 6.8 %; Polychromasia 1+
[2021-07-17] MEDS ORDERED: PROTHROMBIN COMP CONC- KCENTRA 2,000 UNITS in SYRINGE 0 ML IV STA (19:56)
[2021-07-17] MEDS ORDERED: DC ALL ANTICOAGULANTS ONE (19:56)
[2021-07-17 20:43] LABS: Fibrinogen 304 mg/dl (184-400)
[2021-07-17] MEDS ORDERED: diphenhydrAMINE 50 MG/ML VIAL IV STA (20:53)
[2021-07-17] MEDS ORDERED: diphenhydrAMINE 50 MG/ML VIAL ONE (20:54)
--- NOTE | 2021-07-17 21:04 | CT Scan Report ---
ABDOMEN AND PELVIS CT WITH IV CONTRAST CT DOSE: 295.94 mGy.cm HISTORY: Acute GI bleed with nausea and vomiting. History of pancreatic carcinoma Gi bleeding, n/v, h/o panc CA TECHNIQUE: Multiaxial CT images of the abdomen and pelvis were performed following the IV administrat ion of 94 cc of Optiray, A dose lowering technique was utilized adhering to the principles of ALARA. COMPARISON STUDY: CT abdomen and pelvis 06/22/2021, 04/16/2021, 10/05/2019. FINDINGS: Prior median sternotomy with findings suggestive of CABG. A superior approach catheter is n oted terminating within the infrahepatic IVC. The lung bases appear clear. No pneumatosis or pneumope ritoneum. The spleen and adrenal glands are unremarkable. Atrophic pancreas with upstream pancreatic dilation r edemonstrated. Pancreatic head mass with ill-defined margins redemonstrated measuring up to approxima tely 3.5 cm in AP dimension. Intrahepatic and extrahepatic biliary ductal dilation with associated pn eumobilia redemonstrated along with periportal edema. No hepatic metastatic lesions identified. There are two common bile duct stents remain in satisfactory positioning. Biliary air and debris is again noted adjacent to the stent. Chronic wall thickening of the distal stomach and duodenum. Moderately d istended gallbladder with associated wall thickening is unchanged. High-grade narrowing at the portal splenic confluence is unchanged. Unremarkable kidneys without hydronephrosis. Unremarkable urinary bladder. Vascular calcifications of the uterus. Atherosclerosis of the abdominal aorta. Intrahepatic IVC filter. No adenopathy. Small il l-defined abdominal pelvic ascites. Gaseous distention of the rectum. Moderate circumferential wall t hickening of the cecum, ascending and proximal transverse colon. The appendix measures 7 mm and appea rs to be noninflamed. Mild generalized body wall edema. Degenerative changes of the spine, pelvis and hips. No suspicious bone lesions. IMPRESSION: 1. Infiltrative pancreatic head mass with ill-defined margins redemonstrated, the exact margins of th e lesion are difficult to quantify however appears generally stable from the 06/22/2021 exam. 2. Severe narrowing of the portal splenic confluence is unchanged. 3. Body wall edema with small volume of abdominal pelvic ascites. 4. Unchanged positioning of the two common bile duct stents with persistent intrahepatic and extrahep atic biliary ductal dilation with pneumobilia. 5. Moderate wall thickening of the cecum, ascending and proximal transverse colon is suggestive of a nonspecific colitis. 6. No bowel obstruction. ACT 112: Negative or not required by law. The above report was generated using voice recognition software. It contain grammatical, syntax or sp elling errors. Electronically signed by: Von Rico M.D. 07/17/2021 9:03 PM
[2021-07-17] MEDS ORDERED: SODIUM CHLORIDE 0.9% 1000ML 1,000 ML IV ONE (21:11)
[2021-07-17] MEDS ORDERED: CALCIUM GLUCONATE 1,000 MG/60 ML BAG IV STA (21:11)
--- NOTE | 2021-07-17 23:29 | History & Physical Report ---
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 Acute upper GI bleed: -Recurrent upper GI bleed in the setting of recent gastric hemorrhage and EGD demonstrating erosive gastritis -Started on Protonix bolus with subsequent drip -Previously had planned EGD the end of July with GI; however given acute b leed concerns will consult GI for further intervention potential -Will maintain n.p.o. in setting of potential GI intervention -Recommend discontinuation of Eliquis at this time -Status post 2 units packed red blood cells in ED -Continue to monitor H&H every 8 hours -Maintain Hgb >8 -FOBT pending Chronic anticoagulation: -On Eliquis 5 mg twice daily given extensive history of pulmonary embolisms, DVTs, and atrial fibrillation -Given acute hemorrhage and persistent erosive gastritis and gastrointestinal hemorrhages will hold Eliquis at this time -Recommend discontinuation of Eliquis in the setting of numerous upper GI bleeds Pancreatic cancer: -Diagnosed with pancreatic cancer and 2019 -History of radiation currently on chemotherapy -CT abdomen pelvis demonstrating infiltrative pancreatic head mass with ill- defined margins with general stable appearance as compared to 06/22 Diet: N.p.o. CODE STATUS: Full code DVT prophylaxis: Deferred in the setting of acute bleed (2) PAF (paroxysmal atrial fibrillation): (3) Left leg DVT: (4) Adenocarcinoma of head of pancreas: (5) Type 2 diabetes mellitus: History of Present Illness Primary Care Provider: Sugar Campos MD Shelia Alvarez is a 70-year-old female with complex past medical history significant for pulmonary embolisms and DVTs on Eliquis, atrial fibrillation, pancreatic cancer, and gastric hemorrhage due to erosive gastritis; who presents for 6 bouts of hematemesis starting at approximately 1400 earlier today. Over the last several months has had multiple rounds of hematemesis, with EGD in May with Dr. Simmons demonstrating gastric hemorrhage and erosive gastritis, with planned repeat EGD in July. Last week presented to oncology clinic with hemoglobin of 6.9 and subsequently transfused 2 units of packed red blood cells at that point time, at that time was not having any hematemesis symptoms. Upon presentation to ED he continued to have hematemesis, with nausea and vomiting controlled by combination of Zofran and Phenergan. Received 2 units packed red blood cells in ED. Allergies Allergy/AdvReac Type Severity Reaction Status Date / Time No Known Allergies Allergy Verified 07/17/21 19:15 Home Medications Medication Instructions Recorded Confirmed Type metoprolol tartrate 50 mg tablet 25 mg PO BID #180 tab 07/25/20 07/17/21 Rx apixaban 5 mg tablet (Eliquis) 5 mg PO BID #180 tab 04/30/21 07/17/21 Rx vitamins A,C,J-kujs-lycymp 7,160 1 tab PO BID 05/21/21 07/17/21 History unit-113 mg-100 unit tablet (PreserVision AREDS) pantoprazole 40 mg tablet,delayed 40 mg PO DAILY #30 tab 06/20/21 07/17/21 Rx release (Protonix) potassium chloride 20 mEq 20 meq PO DAILY 07/10/21 07/17/21 History tablet,extended release Lactobacillus acidophilus 10 10,000 mmu cells PO DAILY 07/17/21 07/17/21 History billion cell capsule (Probiotic) gemcitabine 1 gram intravenous 0 g IV DIRECTED 07/17/21 07/17/21 History solution Past Med/Surg History Medical History Anemia Cardiac arrest 02/2020 - 2nd to massive/saddle PE History of biliary stent insertion Left leg DVT 02/2020 - with saddle PE PAF (paroxysmal atrial fibrillation) 03/2020 - post-op from embolectomy for saddle PE () (follows with Dr. 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 - for massive saddle PE History of esophagogastroduodenoscopy (EGD) History of vascular access device port Rt chest S/P IVC filter 02/[address] - [facility] S/P patent foramen ovale closure 02/2020 - [facility] Family History Sister Breast cancer Cancer Father Depression Heart disease Hypertension Mother Kidney disease Sister Pancreatic adenocarcinoma diagnosed one week after patient was diagnosed Other No family history of adverse response to anesthesia Denies family history of Ovarian cancer Prostate cancer Myocardial infarction Colorectal cancer Social History Smoking Status: Never smoker Second Hand Exposure: No; Hx Alcohol Use: No Hx Substance Use: No Preferred Language: Portuguese Communication Ability: Effective Visual Impairment: No Limitations Hearing Ability: Hard of Hearing Abstract Clerk Required: No Beliefs That Will Affect Care: None marital status: Current Living Situation: Spouse Current Living Situation Comment: lives with and son in [place]; has 5 kids 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 How many Children do You have: 5 Feels Safe at Home: Yes Childhood Exposure to Second-Hand Smoke: Yes caffeine: Yes (one cup in the am) during the past year weight has: decreased > 10 lbs Dental Care, Regularly: No Physical Activity Frequency: Does not Exercise Seatbelt Use: always Sunscreen Use: No Assistive Devices: Oxygen - Continuous Review of Systems Review of Systems: All systems reviewed & are unremarkable except as noted in HPI & below Physical Exam Constitutional: + thin, + cachectic, + frail appearing, cooperative and + lethargic Eyes: PERRL, conjunctivae normal, anicteric sclerae Respiratory: normal respiratory effort, lungs clear to auscultation Cardiovascular: Rate/Rhythm: regular rhythm and + tachycardic Heart Sounds: no gallop, no murmur and no cardiac rub Gastrointestinal (Abdomen): Inspection/Auscultation: normal bowel sounds; abdomen not distended and no abdominal wall ecchymosis Percussion/Palpation: + abdomen tender (Over epigastrium) and abdomen soft; no guarding Musculoskeletal: no cyanosis or clubbing, extremities motor strength 5/5 Skin: no rashes, warm and dry + turgor decreased Neurologic: PERRL, EOMI, accommodation nl, no face palsy, no dysarthria CN's II-XI intact bilaterally and moves all extremities Psychiatric: Orientation: alert and oriented x 3 Results & Data Results & Data ([facility]) Vital Signs (Past 12 Hours) Vital Signs Temp Pulse Resp BP Pulse Ox 07/17/21 23:15 37.3 C 94 H 12 128/68 100 07/17/21 22:45 89 12 116/60 100 07/17/21 22:30 88 18 110/58 L 99 07/17/21 22:15 36.8 C 91 H 19 111/57 L 99 07/17/21 22:00 91 H 18 112/55 L 99 07/17/21 21:47 36.6 C 07/17/21 21:45 36.6 C 96 H 12 102/53 L 99 07/17/21 21:30 36.8 C 98 H 21 105/52 L 99 07/17/21 21:15 37.2 C 99 H 21 108/53 L 99 07/17/21 21:05 37.5 C 99 H 20 95/60 L 100 07/17/21 21:00 100 H 19 100 07/17/21 20:50 98 H 20 100 07/17/21 20:42 101 H 19 100 07/17/21 20:00 105 H 3 L 121/61 98 07/17/21 19:30 108 H 26 H 132/66 99 07/17/21 19:00 115 H 19 142/73 H 99 07/17/21 18:56 116 H 19 100 07/17/21 18:31 123 H 18 143/52 H 98 07/17/21 18:00 39.8 C H 118 H 18 138/86 98 Laboratory Results 07/18/21 07/18/21 07/17/21 Range/Units 04:11 04:11 21:34 WBC 8.25 (4.8-10.8) K/uL RBC 2.80 L (4.2-5.4) M/uL Hgb 8.6 L (12.0-16.0) g/dL Hct 26.5 L (37-47) % MCV 94.6 (80-100) fL MCH 30.7 (25-34) pg MCHC 32.5 (32-36) g/dL RDW Std Deviation 55.5 H (36.4-46.3) fL RDW Coeff of Axel 17.1 H (11.5-14.5) % Plt Count 170 D (130-400) K/uL MPV 9.5 (7.4-10.4) fL Immature Gran % (Auto) 0.1 % Neut % (Auto) 88.3 % Lymph % (Auto) 5.1 % [place] % (Auto) 6.4 % Eos % (Auto) 0.0 % Baso % (Auto) 0.1 % Neut # (Auto) 7.28 H (1.4-6.5) K/uL Lymph # (Auto) 0.42 L (1.2-3.4) K/uL [place] # (Auto) 0.53 (0.11-0.59) K/uL Eos # (Auto) 0.00 (0-0.5) K/uL Baso # (Auto) 0.01 (0-0.2) K/uL Immature Gran # (Auto) 0.01 (0.00-0.02) K/uL Platelet Estimate Normal (Normal) Polychromasia Anisocytosis PT (9.0-12.0) Seconds INR (0.9-1.1) APTT (21.0-31.0) Seconds PTT Ratio Fibrinogen (184-400) mg/dl Heparin Anti-Xa, LM Wt (< 0.10) IU/ML Sodium 139 (136-145) mmol/L Potassium 3.8 (3.5-5.1) mmol/L Chloride 113 H (98-107) mmol/L Carbon Dioxide 20 L (21-32) mmol/L Anion Gap 6.0 (3-11) BUN 24 H (7-18) mg/dl Creatinine 1.18 (0.6-1.2) mg/dl Est Cr Clr Drug Dosing Not Reportable Est GFR ( Amer) 54.1 ml/min Est GFR (Non-Af Amer) 46.7 ml/min BUN/Creatinine Ratio 19.9 (10-20) Glucose 228 H (70-99) mg/dl Lactate 2.3 H* (0.4-2.0) mmol/L Calcium 7.6 L (8.5-10.1) mg/dl Phosphorus 3.4 (2.5-4.9) mg/dl Magnesium 1.7 L (1.8-2.4) mg/dl Total Bilirubin 5.7 H D (0.2-1) mg/dl AST 188 H (15-37) U/L ALT 96 H (12-78) U/L Alkaline Phosphatase 541 H (45-117) U/L Total Protein 4.8 L (6.4-8.2) gm/dl Albumin 1.9 L (3.4-5.0) gm/dl Globulin 2.9 (2.5-4.0) gm/dl Albumin/Globulin Ratio 0.7 L (0.9-2) Lipase (73-393) U/L COVID-19 Eval Order SARS-CoV-2 (PCR) (Negative) Blood Type Antibody Screen Crossmatch 07/17/21 07/17/21 07/17/21 Range/Units 21:25 21:25 19:37 WBC (4.8-10.8) K/uL RBC (4.2-5.4) M/uL Hgb (12.0-16.0) g/dL Hct (37-47) % MCV (80-100) fL MCH (25-34) pg MCHC (32-36) g/dL RDW Std Deviation (36.4-46.3) fL RDW Coeff of Axel (11.5-14.5) % Plt Count (130-400) K/uL MPV (7.4-10.4) fL Immature Gran % (Auto) % Neut % (Auto) % Lymph % (Auto) % [place] % (Auto) % Eos % (Auto) % Baso % (Auto) % Neut # (Auto) (1.4-6.5) K/uL Lymph # (Auto) (1.2-3.4) K/uL [place] # (Auto) (0.11-0.59) K/uL Eos # (Auto) (0-0.5) K/uL Baso # (Auto) (0-0.2) K/uL Immature Gran # (Auto) (0.00-0.02) K/uL Platelet Estimate (Normal) Polychromasia Anisocytosis PT (9.0-12.0) Seconds INR (0.9-1.1) APTT (21.0-31.0) Seconds PTT Ratio Fibrinogen (184-400) mg/dl Heparin Anti-Xa, LM Wt (< 0.10) IU/ML Sodium (136-145) mmol/L Potassium (3.5-5.1) mmol/L Chloride (98-107) mmol/L Carbon Dioxide (21-32) mmol/L Anion Gap (3-11) BUN (7-18) mg/dl Creatinine (0.6-1.2) mg/dl Est Cr Clr Drug Dosing Est GFR ( Amer) ml/min Est GFR (Non-Af Amer) ml/min BUN/Creatinine Ratio (10-20) Glucose (70-99) mg/dl Lactate 3.3 H* (0.4-2.0) mmol/L Calcium (8.5-10.1) mg/dl Phosphorus (2.5-4.9) mg/dl Magnesium (1.8-2.4) mg/dl Total Bilirubin (0.2-1) mg/dl AST (15-37) U/L ALT (12-78) U/L Alkaline Phosphatase (45-117) U/L Total Protein (6.4-8.2) gm/dl Albumin (3.4-5.0) gm/dl Globulin (2.5-4.0) gm/dl Albumin/Globulin Ratio (0.9-2) Lipase (73-393) U/L COVID-19 Eval Order Covid19 at [facility] SARS-CoV-2 (PCR) NEGATIVE (Negative) Blood Type Antibody Screen Crossmatch 07/17/21 07/17/21 07/17/21 Range/Units 18:36 18:36 18:36 WBC (4.8-10.8) K/uL RBC (4.2-5.4) M/uL Hgb (12.0-16.0) g/dL Hct (37-47) % MCV (80-100) fL MCH (25-34) pg MCHC (32-36) g/dL RDW Std Deviation (36.4-46.3) fL RDW Coeff of Axel (11.5-14.5) % Plt Count (130-400) K/uL MPV (7.4-10.4) fL Immature Gran % (Auto) % Neut % (Auto) % Lymph % (Auto) % [place] % (Auto) % Eos % (Auto) % Baso % (Auto) % Neut # (Auto) (1.4-6.5) K/uL Lymph # (Auto) (1.2-3.4) K/uL [place] # (Auto) (0.11-0.59) K/uL Eos # (Auto) (0-0.5) K/uL Baso # (Auto) (0-0.2) K/uL Immature Gran # (Auto) (0.00-0.02) K/uL Platelet Estimate (Normal) Polychromasia Anisocytosis PT (9.0-12.0) Seconds INR (0.9-1.1) APTT (21.0-31.0) Seconds PTT Ratio Fibrinogen 304 (184-400) mg/dl Heparin Anti-Xa, LM Wt 1.16 (< 0.10) IU/ML Sodium 142 (136-145) mmol/L Potassium 4.3 (3.5-5.1) mmol/L Chloride 111 H (98-107) mmol/L Carbon Dioxide 21 (21-32) mmol/L Anion Gap 10.0 (3-11) BUN 24 H (7-18) mg/dl Creatinine 0.99 (0.6-1.2) mg/dl Est Cr Clr Drug Dosing Not Reportable Est GFR ( Amer) 66.9 ml/min Est GFR (Non-Af Amer) 57.7 ml/min BUN/Creatinine Ratio 24.2 H (10-20) Glucose 227 H (70-99) mg/dl Lactate (0.4-2.0) mmol/L Calcium 8.0 L (8.5-10.1) mg/dl Phosphorus (2.5-4.9) mg/dl Magnesium (1.8-2.4) mg/dl Total Bilirubin 1.5 H (0.2-1) mg/dl AST 215 H (15-37) U/L ALT 66 (12-78) U/L Alkaline Phosphatase 552 H (45-117) U/L Total Protein 5.3 L (6.4-8.2) gm/dl Albumin 2.2 L (3.4-5.0) gm/dl Globulin 3.1 (2.5-4.0) gm/dl Albumin/Globulin Ratio 0.7 L (0.9-2) Lipase 39 L (73-393) U/L COVID-19 Eval Order SARS-CoV-2 (PCR) (Negative) Blood Type Antibody Screen Crossmatch 07/17/21 07/17/21 07/17/21 Range/Units 18:36 18:36 18:36 WBC 11.15 H (4.8-10.8) K/uL RBC 1.96 L (4.2-5.4) M/uL Hgb 6.2 L* (12.0-16.0) g/dL Hct 19.1 L* (37-47) % MCV 97.4 (80-100) fL MCH 31.6 (25-34) pg MCHC 32.5 (32-36) g/dL RDW Std Deviation 64.5 H (36.4-46.3) fL RDW Coeff of Axel 18.6 H (11.5-14.5) % Plt Count 370 (130-400) K/uL MPV 9.6 (7.4-10.4) fL Immature Gran % (Auto) 0.5 % Neut % (Auto) 87.0 % Lymph % (Auto) 5.4 % [place] % (Auto) 6.8 % Eos % (Auto) 0.2 % Baso % (Auto) 0.1 % Neut # (Auto) 9.70 H (1.4-6.5) K/uL Lymph # (Auto) 0.60 L (1.2-3.4) K/uL [place] # (Auto) 0.76 H (0.11-0.59) K/uL Eos # (Auto) 0.02 (0-0.5) K/uL Baso # (Auto) 0.01 (0-0.2) K/uL Immature Gran # (Auto) 0.06 H (0.00-0.02) K/uL Platelet Estimate (Normal) Polychromasia 1+ Anisocytosis Present PT 13.5 H (9.0-12.0) Seconds INR 1.4 H (0.9-1.1) APTT 21.4 (21.0-31.0) Seconds PTT Ratio 0.8 Fibrinogen (184-400) mg/dl Heparin Anti-Xa, LM Wt (< 0.10) IU/ML Sodium (136-145) mmol/L Potassium (3.5-5.1) mmol/L Chloride (98-107) mmol/L Carbon Dioxide (21-32) mmol/L Anion Gap (3-11) BUN (7-18) mg/dl Creatinine (0.6-1.2) mg/dl Est Cr Clr Drug Dosing Est GFR ( Amer) ml/min Est GFR (Non-Af Amer) ml/min BUN/Creatinine Ratio (10-20) Glucose (70-99) mg/dl Lactate (0.4-2.0) mmol/L Calcium (8.5-10.1) mg/dl Phosphorus (2.5-4.9) mg/dl Magnesium (1.8-2.4) mg/dl Total Bilirubin (0.2-1) mg/dl AST (15-37) U/L ALT (12-78) U/L Alkaline Phosphatase (45-117) U/L Total Protein (6.4-8.2) gm/dl Albumin (3.4-5.0) gm/dl Globulin (2.5-4.0) gm/dl Albumin/Globulin Ratio (0.9-2) Lipase (73-393) U/L COVID-19 Eval Order SARS-CoV-2 (PCR) (Negative) Blood Type B Positive Antibody Screen NEGATIVE Crossmatch See Detail Diagnostic Findings Impressions Abdomen/Pelvis CT 07/17/21 18:[address] WITH IV CONTRAST CT DOSE: 295.94 mGy.cm HISTORY: Acute GI bleed with nausea and vomiting. History of pancreatic carcinoma Gi bleeding, n/v, h/o panc CA TECHNIQUE: Multiaxial CT images of the abdomen and pelvis were performed following the IV administration of 94 cc of Optiray, A dose lowering technique was utilized adhering to the principles of ALARA. COMPARISON STUDY: CT abdomen and pelvis 06/22/2021, 04/16/2021, 10/05/2019. FINDINGS: Prior median sternotomy with findings suggestive of CABG. A superior approach catheter is noted terminating within the infrahepatic IVC. The lung bases appear clear. No pneumatosis or pneumoperitoneum. The spleen and adrenal glands are unremarkable. Atrophic pancreas with upstream pancreatic dilation redemonstrated. Pancreatic head mass with ill-defined margins redemonstrated measuring up to approximately 3.5 cm in AP dimension. Intrahepatic and extrahepatic biliary ductal dilation with associated pneumobilia redemonstrated along with periportal edema. No hepatic metastatic lesions identified. There are two common bile duct stents remain in satisfactory positioning. Biliary air and debris is again noted adjacent to the stent. Chronic wall thickening of the distal stomach and duodenum. Moderately distended gallbladder with associated wall thickening is unchanged. High-grade narrowing at the portal splenic confluence is unchanged. Unremarkable kidneys without hydronephrosis. Unremarkable urinary bladder. Vascular calcifications of the uterus. Atherosclerosis of the abdominal aorta. Intrahepatic IVC filter. No adenopathy. Small ill-defined abdominal pelvic ascites. Gaseous distention of the rectum. Moderate circumferential wall thickening of the cecum, ascending and proximal transverse colon. The appendix measures 7 mm and appears to be noninflamed. Mild generalized body wall edema. Degenerative changes of the spine, pelvis and hips. No suspicious bone lesions. IMPRESSION: 1. Infiltrative pancreatic head mass with ill-defined margins redemonstrated, the exact margins of the lesion are difficult to quantify however appears generally stable from the 06/22/2021 exam. 2. Severe narrowing of the portal splenic confluence is unchanged. 3. Body wall edema with small volume of abdominal pelvic ascites. 4. Unchanged positioning of the two common bile duct stents with persistent intrahepatic and extrahepatic biliary ductal dilation with pneumobilia. 5. Moderate wall thickening of the cecum, ascending and proximal transverse colon is suggestive of a nonspecific colitis. 6. No bowel obstruction. ACT 112: Negative or not required by law. The above report was generated using voice recognition software. It contain grammatical, syntax or spelling errors. Electronically signed by: Von Rico M.D. 07/17/2021 9:03 PM Medications Administered Home Medication List Medication Instructions Recorded metoprolol tartrate 50 mg tablet 25 mg PO BID #180 tab 07/25/20 apixaban 5 mg tablet (Eliquis) 5 mg PO BID #180 tab 04/30/21 vitamins A,C,Z-yeru-vskzug 7,160 1 tab PO BID 05/21/21 unit-113 mg-100 unit tablet (PreserVision AREDS) pantoprazole 40 mg tablet,delayed 40 mg PO DAILY #30 tab 06/20/21 release (Protonix) potassium chloride 20 mEq 20 meq PO DAILY 07/10/21 tablet,extended release Lactobacillus acidophilus 10 10,000 mmu cells PO DAILY 07/17/21 billion cell capsule (Probiotic) gemcitabine 1 gram intravenous 0 g IV DIRECTED 07/17/21 solution Code Status & VTE Plan VTE Prophylaxis Plan VTE Prophylaxis will be ordered: No Supervising Physician Co-Signing Physician Notes Attending addendum: I have physically seen this patient, have supervised the medical residents activities, and agree with the H&P unless as otherwise noted. Assessment and Plan: Acute upper GI bleeding/symptomatic anemia- Continue Protonix bolus/drip with via protocol Hemoglobin 6.2 upon admission H&H every 6 hours Status post transfusion 2 units PRBCs in the ED NPO Chronic anticoagulation- Hold Eliquis due to bleeding Consideration to [facility] Pancreatic cancer- History of radiation Presently on chemotherapy CT suggest stable infiltrative mass in the pancreatic head Remaining orders and notations as noted Resident Activity Tracking Resident Involvement: Resident Care Provided Care Provided: Adult Hospital Medicine (1) Left leg DVT Affected thrombotic vein of extremity: unspecified vein of extremity Chronicity: unspecified Qualified Code(s): I82.402 - Acute embolism and thrombosis of unspecified deep veins of left lower extremity
[2021-07-18] MEDS ORDERED: PROMETHAZINE HCL 25 MG in SODIUM CHLORIDE 0.9% 50 ML IV ONE
[2021-07-18] MEDS: PANTOprazole 40 MG in DEXTROSE 5% 100 ML IV SCH ×4 (00:06→17:21)
[2021-07-18] MEDS ORDERED: ONDANSETRON INJ 2 MG/ML 2 ML VIAL IV STA (00:47)
[2021-07-18] MEDS ORDERED: MoRPHine SULFATE 2 MG/ML CARP IV STA (01:22)
[2021-07-18] MEDS ORDERED: ONDANSETRON INJ 2 MG/ML 2 ML VIAL IV PRN ×2 (02:36→09:22)
[2021-07-18] MEDS ORDERED: ACETAMINOPHEN 325 MG TAB PO PRN (02:36)
[2021-07-18] MEDS ORDERED: MAGNESIUM HYDROXIDE SUSP 30 ML UDC PO PRN (02:36)
[2021-07-18] MEDS ORDERED: POLYETHYLENE (MIRALAX) 17 GM PACK PO PRN (02:36)
[2021-07-18] MEDS ORDERED: ALUMINUM/MAGNESIUM SUSP 30 ML UDC PO PRN (02:36)
[2021-07-18] MEDS: NSS + 20MEQ KCL 20 MEQ/1,000 ML BAG IV SCH ×3 (03:34→20:28)
[2021-07-18 04:46] LABS: Alanine Aminotransferase 96 U/L (12-78); Albumin Globulin Ratio 0.7 (0.9-2); Albumin Level 1.9 gm/dl (3.4-5.0); Alkaline Phosphatase 541 U/L (45-117); Aspartate Aminotransferase 188 U/L (15-37); BUN Creatinine Ratio 19.9 (10-20); Bilirubin,Total 5.7 mg/dl (0.2-1); Blood Urea Nitrogen 24 mg/dl (7-18); Calcium 7.6 mg/dl (8.5-10.1); Carbon Dioxide 20 mmol/L (21-32); Chloride 113 mmol/L (98-107); Est GFR (African American) 54.1 ml/min; Est GFR (Non-African American) 46.7 ml/min; Globulin 2.9 gm/dl (2.5-4.0); Glucose 228 mg/dl (70-99); Magnesium 1.7 mg/dl (1.8-2.4); Phosphorus 3.4 mg/dl (2.5-4.9); Potassium 3.8 mmol/L (3.5-5.1); Sodium 139 mmol/L (136-145); Total Protein 4.8 gm/dl (6.4-8.2)
[2021-07-18 05:12] LABS: Basophils # (auto) 0.01 K/uL (0-0.2); Basophils % (auto) 0.1 %; Hematocrit (blood only) 26.5 % (37-47); Hemoglobin 8.6 g/dL (12.0-16.0); Immature Granulocytes # (auto) 0.01 K/uL (0.00-0.02); Immature Granulocytes % (auto) 0.1 %; Lymphocytes # (auto) 0.42 K/uL (1.2-3.4); Lymphocytes % (auto) 5.1 %; Mean Corpuscular Hemoglobin 30.7 pg (25-34); Mean Corpuscular Hgb Conc 32.5 g/dL (32-36); Mean Corpuscular Volume 94.6 fL (80-100); Mean Platelet Volume 9.5 fL (7.4-10.4); Monocytes # (auto) 0.53 K/uL (0.11-0.59); Monocytes % (auto) 6.4 %; Neutrophils # (auto) 7.28 K/uL (1.4-6.5); Neutrophils % (auto) 88.3 %; Platelet Count 170 K/uL (130-400); Platelet Estimate Normal (Normal); RDW Coefficient of Variation 17.1 % (11.5-14.5); RDW Standard Deviation 55.5 fL (36.4-46.3); White Blood Count 8.25 K/uL (4.8-10.8)
[2021-07-18] MEDS ORDERED: PIPERACILLIN/TAZOBACTAM 3.375 GM in DEXTROSE 5% 100 ML IV SCH ×2 (09:00→20:00)
[2021-07-18] MEDS ORDERED: PROCHLORPERAZINE 5 MG in SYRINGE 4 ML IV PRN (09:21)
[2021-07-18] MEDS ORDERED: METOCLOPRAMIDE HCL INJ 5 MG/ML 2 ML VIAL IV STA (09:38)
--- NOTE | 2021-07-18 09:42 | Gastrointestinal Consultation ---
Date of Consultation July 18, 2021 Assessment & Plan (1) Acute upper gastrointestinal bleeding: (2) Gastric hemorrhage due to erosive gastritis: 1. NPO for now. 2. Reglan 10 mg IV x1 dose now. 3. EGD with Dr. Simmons today for therapeutic management. 4. Agree with holding Eliquis. 5. Continue PPI ggt at 8 mg/hr now. 6. Spoke with Dr. Rodriguez. Plan for palliative care consultation and discussion about code status. Agree with this plan. 7. Further recommendations will be made pending results of testing. Thank you for allowing us to participate in the care of this patient. If you have any questions or concerns, please do not hesitate to contact us. Supervising Physician Co-Signing Physician Notes I personally evaluated the patient and agree with the findings as documented by GRACIE Brasher Exam: abd: soft, nt, nd History of Present Illness Reason for Consultation: UGIB Requesting Physician: Dr. Ba Attending Physician: Hossein Rodriguez MD History of Present Illness Patient is a 70 y.o. female with a history of pancreatic cancer s/p chemo/radiation admitted with hematemesis beginning just prior to arrival. She did have an upper endoscopy by Dr. Simmons on 05/24 with findings of erosive gastritis (likely from prior radiation) as well as significant duodenal compression extrinsically which precluded scope advancement and visualization. She had remained on Eliquis 5 mg BID due to history of PE. This has been discontinued in light of her hematemesis. On arrival, he hemoglobin was noted to be profoundly low at 6.2 and was noted to be 8.9 after receiving IV blood transfusion. She remains on a PPI ggt at 8 mg/hr and is NPO. Her last episode of hematemesis was just prior to evaluation this morning. Allergies Allergy/AdvReac Type Severity Reaction Status Date / Time No Known Allergies Allergy Verified 07/17/21 19:15 Home Medications Medication Instructions Recorded Confirmed Type metoprolol tartrate 50 mg tablet 25 mg PO BID #180 tab 07/25/20 07/17/21 Rx apixaban 5 mg tablet (Eliquis) 5 mg PO BID #180 tab 04/30/21 07/17/21 Rx vitamins A,C,H-naep-cnrdgi 7,160 1 tab PO BID 05/21/21 07/17/21 History unit-113 mg-100 unit tablet (PreserVision AREDS) pantoprazole 40 mg tablet,delayed 40 mg PO DAILY #30 tab 06/20/21 07/17/21 Rx release (Protonix) potassium chloride 20 mEq 20 meq PO DAILY 07/10/21 07/17/21 History tablet,extended release Lactobacillus acidophilus 10 10,000 mmu cells PO DAILY 07/17/21 07/17/21 History billion cell capsule (Probiotic) gemcitabine 1 gram intravenous 0 g IV DIRECTED 07/17/21 07/17/21 History solution Patient History Medical History Anemia Cardiac arrest 02/2020 - 2nd to massive/saddle PE History of biliary stent insertion Left leg DVT 02/2020 - with saddle PE PAF (paroxysmal atrial fibrillation) 03/2020 - post-op from embolectomy for saddle PE ([facility]) (follows with Dr. 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 - for massive saddle PE History of esophagogastroduodenoscopy (EGD) History of vascular access device port Rt chest S/P IVC filter 02/[address] - [facility] S/P patent foramen ovale closure 02/[address] - [facility] Family History Sister Breast cancer Cancer Father Depression Heart disease Hypertension Mother Kidney disease Sister Pancreatic adenocarcinoma diagnosed one week after patient was diagnosed Other No family history of adverse response to anesthesia Denies family history of Ovarian cancer Prostate cancer Myocardial infarction Colorectal cancer Social History Smoking Status: Never smoker Second Hand Exposure: No; Hx Alcohol Use: No Hx Substance Use: No Preferred Language: Belarusian Communication Ability: Effective Visual Impairment: No Limitations Hearing Ability: Hard of Hearing Bilingual [employer] Teacher Required: No Beliefs That Will Affect Care: None marital status: Current Living Situation: Spouse Current Living Situation Comment: lives with and son in [place]; has 5 kids 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 How many Children do You have: 5 Feels Safe at Home: Yes Childhood Exposure to Second-Hand Smoke: Yes caffeine: Yes (one cup in the am) during the past year weight has: decreased > 10 lbs Dental Care, Regularly: No Physical Activity Frequency: Does not Exercise Seatbelt Use: always Sunscreen Use: No Assistive Devices: Denture - Upper Review of Systems Constitutional: + fatigue; no fever (one documented fever last night, now resolved.COVID -) and no chills Gastrointestinal: as per Subjective / HPI, + abdominal pain and + hematemesis Physical Exam Constitutional: + thin and + frail appearing Respiratory: normal respiratory effort, lungs clear to auscultation Cardiovascular: Rate/Rhythm: regular rate and regular rhythm Gastrointestinal (Abdomen): Inspection/Auscultation: normal bowel sounds Percussion/Palpation: + abdomen tender (epigastric) and abdomen soft Skin: + pallor Psychiatric: A+Ox3, euthymic affect Results & Data ([facility]) Vital Signs (Past 12 Hours) Vital Signs Temp Pulse Pulse Resp BP BP Pulse Ox 07/18/21 07:23 96 H 07/18/21 07:21 36.6 C 94 H 17 137/83 07/18/21 03:43 108 H 07/18/21 02:45 36.4 C L 98 H 16 135/81 07/18/21 02:36 36.8 C 116 H 16 168/71 H 07/18/21 02:30 36.5 C 104 H 16 170/71 H 07/18/21 01:20 36.6 C 88 23 144/82 H 07/18/21 00:50 36.7 C 103 H 14 146/102 H 07/18/21 00:35 36.8 C 90 24 144/82 H 07/18/21 00:19 36.7 C 109 H 16 180/107 H 07/17/21 23:42 37.2 C 103 H 18 167/108 H 07/17/21 23:15 37.3 C 94 H 12 128/68 100 07/17/21 22:45 89 12 116/60 07/17/21 22:30 88 18 110/58 L 99 07/17/21 22:15 36.8 C 91 H 19 111/57 L 99 07/17/21 22:00 91 H 18 112/55 L 99 07/17/21 21:47 36.6 C 07/17/21 21:45 36.6 C 96 H 12 102/53 L 99 Laboratory Results Abnormal lab results 07/17/21 07/17/21 07/17/21 Range/Units 18:36 18:36 18:36 WBC 11.15 H (4.8-10.8) K/uL RBC 1.96 L (4.2-5.4) M/uL Hgb 6.2 L* (12.0-16.0) g/dL Hct 19.1 L* (37-47) % RDW Std Deviation 64.5 H (36.4-46.3) fL RDW Coeff of Axel 18.6 H (11.5-14.5) % Neut # (Auto) 9.70 H (1.4-6.5) K/uL Lymph # (Auto) 0.60 L (1.2-3.4) K/uL [place] # (Auto) 0.76 H (0.11-0.59) K/uL Immature Gran # (Auto) 0.06 H (0.00-0.02) K/uL PT 13.5 H (9.0-12.0) Seconds INR 1.4 H (0.9-1.1) Chloride (98-107) mmol/L Carbon Dioxide (21-32) mmol/L BUN (7-18) mg/dl BUN/Creatinine Ratio (10-20) Glucose (70-99) mg/dl Lactate (0.4-2.0) mmol/L Calcium (8.5-10.1) mg/dl Magnesium (1.8-2.4) mg/dl Total Bilirubin (0.2-1) mg/dl AST (15-37) U/L ALT (12-78) U/L Alkaline Phosphatase (45-117) U/L Total Protein (6.4-8.2) gm/dl Albumin (3.4-5.0) gm/dl Albumin/Globulin Ratio (0.9-2) Lipase (73-393) U/L Crossmatch See Detail 07/17/21 07/17/21 07/17/21 Range/Units 18:36 18:36 19:37 WBC (4.8-10.8) K/uL RBC (4.2-5.4) M/uL Hgb (12.0-16.0) g/dL Hct (37-47) % RDW Std Deviation (36.4-46.3) fL RDW Coeff of Axel (11.5-14.5) % Neut # (Auto) (1.4-6.5) K/uL Lymph # (Auto) (1.2-3.4) K/uL [place] # (Auto) (0.11-0.59) K/uL Immature Gran # (Auto) (0.00-0.02) K/uL PT (9.0-12.0) Seconds INR (0.9-1.1) Chloride 111 H (98-107) mmol/L Carbon Dioxide (21-32) mmol/L BUN 24 H (7-18) mg/dl BUN/Creatinine Ratio 24.2 H (10-20) Glucose 227 H (70-99) mg/dl Lactate 3.3 H* (0.4-2.0) mmol/L Calcium 8.0 L (8.5-10.1) mg/dl Magnesium (1.8-2.4) mg/dl Total Bilirubin 1.5 H (0.2-1) mg/dl AST 215 H (15-37) U/L ALT (12-78) U/L Alkaline Phosphatase 552 H (45-117) U/L Total Protein 5.3 L (6.4-8.2) gm/dl Albumin 2.2 L (3.4-5.0) gm/dl Albumin/Globulin Ratio 0.7 L (0.9-2) Lipase 39 L (73-393) U/L Crossmatch 07/17/21 07/18/21 07/18/21 Range/Units 21:34 04:11 04:11 WBC (4.8-10.8) K/uL RBC 2.80 L (4.2-5.4) M/uL Hgb 8.6 L (12.0-16.0) g/dL Hct 26.5 L (37-47) % RDW Std Deviation 55.5 H (36.4-46.3) fL RDW Coeff of Axel 17.1 H (11.5-14.5) % Neut # (Auto) 7.28 H (1.4-6.5) K/uL Lymph # (Auto) 0.42 L (1.2-3.4) K/uL [place] # (Auto) (0.11-0.59) K/uL Immature Gran # (Auto) (0.00-0.02) K/uL PT (9.0-12.0) Seconds INR (0.9-1.1) Chloride 113 H (98-107) mmol/L Carbon Dioxide 20 L (21-32) mmol/L BUN 24 H (7-18) mg/dl BUN/Creatinine Ratio (10-20) Glucose 228 H (70-99) mg/dl Lactate 2.3 H* (0.4-2.0) mmol/L Calcium 7.6 L (8.5-10.1) mg/dl Magnesium 1.7 L (1.8-2.4) mg/dl Total Bilirubin 5.7 H D (0.2-1) mg/dl AST 188 H (15-37) U/L ALT 96 H (12-78) U/L Alkaline Phosphatase 541 H (45-117) U/L Total Protein 4.8 L (6.4-8.2) gm/dl Albumin 1.9 L (3.4-5.0) gm/dl Albumin/Globulin Ratio 0.7 L (0.9-2) Lipase (73-393) U/L Crossmatch PG Care Time/CCT Total # of Minutes Spent Total Time Spent with Patient: Total time spent is greater than 50% in coor dination of care (as documented) at patient's floor/unit and/or counseling patient: Coding Level of Care Code 84867 Initial Inpt Care Lvl 3 Diagnoses Acute upper gastrointestinal bleeding K92.2 Gastric hemorrhage due to erosive gastritis K29.61
[2021-07-18] MEDS ORDERED: NOREPINEPHRINE/D5W 8 MG/508 ML IV ONE (10:11)
[2021-07-18 10:16] LABS: Hematocrit (blood only) 21.7 % (37-47); Hemoglobin 7.1 g/dL (12.0-16.0); Mean Corpuscular Hemoglobin 31.1 pg (25-34); Mean Corpuscular Volume 95.2 fL (80-100); Mean Platelet Volume 10.4 fL (7.4-10.4); Platelet Count 211 K/uL (130-400); RDW Standard Deviation 58.5 fL (36.4-46.3); Red Blood Count 2.28 M/uL (4.2-5.4)
[2021-07-18 10:19] LABS: Base Excess VBG -10.6 mEq/L; HCO3 VBG 16 mmol/L; Oxygen Saturation VBG < 60.0 %; PCO2 VBG 37 mmHg (38-50); PO2 VBG 27 mmHg; pH VBG 7.24 (7.36-7.41)
[2021-07-18 10:37] LABS: Alanine Aminotransferase 79 U/L (12-78); Albumin Level 1.7 gm/dl (3.4-5.0); Aspartate Aminotransferase 126 U/L (15-37); BUN Creatinine Ratio 20.5 (10-20); Blood Urea Nitrogen 24 mg/dl (7-18); Calcium 7.7 mg/dl (8.5-10.1); Carbon Dioxide 16 mmol/L (21-32); Chloride 114 mmol/L (98-107); Est GFR (African American) 54.7 ml/min; Est GFR (Non-African American) 47.2 ml/min; Glucose 313 mg/dl (70-99); Potassium 4.6 mmol/L (3.5-5.1); Sodium 143 mmol/L (136-145)
[2021-07-18] MEDS ORDERED: PHARMACY GLYCEMIC MGMT CONSULT PRN (10:40)
[2021-07-18 10:43] LABS: Albumin Globulin Ratio 0.7 (0.9-2); Alkaline Phosphatase 443 U/L (45-117); Bilirubin,Total 6.4 mg/dl (0.2-1); Globulin 2.5 gm/dl (2.5-4.0); Total Protein 4.2 gm/dl (6.4-8.2); Troponin I 0.041 ng/ml (0-0.045)
[2021-07-18] MEDS ORDERED: STAT IV Infusion **Titration per Protocol STA ×5 (10:47→16:52)
[2021-07-18] MEDS ORDERED: ONDANSETRON INJ 2 MG/ML 2 ML VIAL ONE (10:48)
[2021-07-18] MEDS ORDERED: LIDOCAINE 2% 2 ML VIAL/AMP(20MG/ML) INFIL ONE (10:48)
[2021-07-18] MEDS ORDERED: PROPOFOL IV EMULSION 10 MG/ML 20 ML VIAL IV ONE (10:48)
[2021-07-18] MEDS ORDERED: fentaNYL citrate 100 MCG/2 ML VIAL ONE (10:49)
[2021-07-18 10:51] LABS: Beta-Hydroxybutyrate 2.02 mg/dl (0.2-2.81)
[2021-07-18 10:57] LABS: Mean Corpuscular Hgb Conc 32.7 g/dL (32-36)
[2021-07-18] MEDS ORDERED: SODIUM CHLORIDE 0.9% 250 ML IV PRN ×2 (10:57→16:58)
[2021-07-18] MEDS ORDERED: NOREPINEPHRINE/D5W 8 MG/508 ML BAG IV SCH (11:00)
[2021-07-18] MEDS ORDERED: INSULIN PROTOCOL GOAL RANGE ONE (11:01)
[2021-07-18] MEDS: SODIUM CHLORIDE 0.9% 1000ML 1,000 ML IV SCH ×2 (11:08→13:12)
[2021-07-18] MEDS ORDERED: NovoLIN-R BOLUS FROM BAG IV ONE (11:15)
[2021-07-18] MEDS ORDERED: GLUCAGON FOR INJ 1 MG VIAL IM PRN (11:15)
[2021-07-18] MEDS ORDERED: CARBOHYDRATES FOR HYPOGLYCEMIA PO PRN (11:15)
[2021-07-18] MEDS ORDERED: DEXTROSE 50% 50 ML SYRINGE IV PRN (11:15)
[2021-07-18] MEDS ORDERED: GLUCOSE 40% GEL 15 GM TUBE PO PRN (11:15)
[2021-07-18] MEDS ORDERED: GLUCOSE 10 TABS/TUBE PO PRN (11:15)
[2021-07-18] MEDS ORDERED: INSULIN REGULAR 250 UNITS in SODIUM CHLORIDE 0.9% 247.5 ML IV SCH (11:15)
[2021-07-18] MEDS: INSULIN ASPART 100 UNITS/ML 3 ML PEN SC SCH ×2 (11:30→16:43)
[2021-07-18] MEDS ORDERED: ePHEDrine sulfate 50 MG/ML AMP IV PRN (11:40)
[2021-07-18] MEDS ORDERED: ATROPINE SULFATE 0.1 MG/ML 10ML SYR IV PRN (11:40)
--- NOTE | 2021-07-18 11:40 | Anesthesiology Consultation ---
Date of Service July 18, 2021 Assessment & Plan (1) Encounter for pre-operative examination: Chart Review Chart Review: Acceptable Risk for Surgery and Patient NOT seen in Pre Admission Testing Consults Requested none ASA ASA5 Proposed Anesthesia Anesthesia Type: General Anesthesia Line Insertion: Arterial line Risk / Benefits Reviewed With: PT / POA / Parent / Guardian, Accepts Plan and Informed Consent Obtained Additional Comments: planned post op ventilator History Surgery Operation Date: 07/18/21 13:20 Proposed Procedures p Esophagogastroduodenoscopy - Jordi Simmons MD Operation Date: 07/18/21 16:30 Proposed Procedures p Esophagogastroduodenoscopy Dr. Simmons - Jordi Simmons MD Height/Weight Weight: 62.7 kg Allergies Allergy/AdvReac Type Severity Reaction Status Date / Time No Known Allergies Allergy Verified 07/17/21 19:15 Medications Home Medications Medication Instructions Recorded Confirmed Last Taken metoprolol tartrate 50 mg tablet 25 mg PO BID #180 tab 07/25/20 07/17/21 07/17/21 08:00 apixaban 5 mg tablet (Eliquis) 5 mg PO BID #180 tab 04/30/21 07/17/21 07/17/21 08:00 vitamins A,C,U-prct-vxupcv 7,160 1 tab PO BID 05/21/21 07/17/21 07/17/21 08:00 unit-113 mg-100 unit tablet (PreserVision AREDS) pantoprazole 40 mg tablet,delayed 40 mg PO DAILY #30 tab 06/20/21 07/17/21 07/17/21 release (Protonix) potassium chloride 20 mEq 20 meq PO DAILY 07/10/21 07/17/21 07/17/21 tablet,extended release Lactobacillus acidophilus 10 10,000 mmu cells PO DAILY 07/17/21 07/17/21 07/17/21 billion cell capsule (Probiotic) gemcitabine 1 gram intravenous 0 g IV DIRECTED 07/17/21 07/17/21 Unknown solution Active Medications Generic Name Dose Route Start Last Admin Trade Name Freq PRN Reason Stop Dose Admin Pantoprazole Sodium 40 mg/ 100 mls @ 20 mls/hr 07/17/21 18:45 07/18/21 10:37 Dextrose IV 08/16/21 18:44 8 mg/hr Q5H BENNIE 20 mls/hr Administration 8 MG/HR Potassium Chloride/Sodium Chloride 20 meq in 1,000 mls @ 125 mls/hr 07/18/21 03:15 07/18/21 03:34 Normal Saline W/20 Meq Kcl IV 08/17/21 03:14 125 mls/hr .Q8H BENNIE Administration Norepinephrine Bitartrate 8 mg in 508 mls @ 0 mls/hr 07/18/21 11:00 07/18/21 11:12 Levophed/D5w IV 08/17/21 10:59 0 mcg/kg/min .Q0M BENNIE 0 mls/hr Titration Protocol 0 MCG/KG/MIN Sodium Chloride 1,000 mls @ 999 mls/hr 07/18/21 10:49 07/18/21 11:08 Nss 1000ml IV 07/18/21 12:49 999 mls/hr .Q1H1M BENNIE Administration Past Medical History Medical History Anemia Cardiac arrest 02/2020 - 2nd to massive/saddle PE History of biliary stent insertion Left leg DVT 02/2020 - with saddle PE PAF (paroxysmal atrial fibrillation) 03/2020 - post-op from embolectomy for saddle PE ([facility]) (follows with Dr. 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 Type 2 diabetes mellitus diet controlled Exercise / Class Metabolic Activity II 4-5 Yardwork/Stairs/Walk up hill Past Family History Family History Sister Breast cancer Cancer Father Depression Heart disease Hypertension Mother Kidney disease Sister Pancreatic adenocarcinoma diagnosed one week after patient was diagnosed Other No family history of adverse response to anesthesia Denies family history of Ovarian cancer Prostate cancer Myocardial infarction Colorectal cancer Past Surgical History Surgical History H/O tubal ligation History of colonoscopy History of embolectomy 02/2020 - [facility] - for massive saddle PE History of esophagogastroduodenoscopy (EGD) History of vascular access device port Rt chest S/P IVC filter 02/2020 - [facility] S/P patent foramen ovale closure 02/2020 - [facility] Past Anesthesia History No Hx of Anesthesia Complications and No Family Hx of Anesthesia Complications History of PONV No Hx of PONV and No Hx of Motion Sickness Social History Smoking Status: Never smoker Hx Alcohol Use: No Alcohol type: wine Hx Substance Use: No substance use type: does not use Physical Exam Vital Signs Last Vital Signs Temp 34.5 C L 07/18/21 11:33 Pulse 105 H 07/18/21 11:33 Resp 28 H 07/18/21 11:33 BP 121/76 07/18/21 11:33 Pulse Ox 100 07/18/21 11:33 Constitutional + acute distress (abdominal pain and nausea) ENMT Mouth: + poor dentition Thyromental Distance: > or= 3.5 Finger Breadths Mallampati Class: II Neck normal visual inspection Respiratory normal respiratory effort Auscultation: lungs clear to auscultation bilaterally Cardiovascular Rate/Rhythm: regular rhythm and + tachycardic Chest (Breasts) Chest: + vascular access device or port Skin jaundice Psychiatric Orientation: alert Testing Laboratory Results 07/18/21 10:03 07/18/21 10:03 PT 13.5 Seconds (9.0-12.0) H 07/17/21 18:36 INR 1.4 (0.9-1.1) H 07/17/21 18:36 APTT 21.4 Seconds (21.0-31.0) 07/17/21 18:36 Blood Type B Positive 07/17/21 18:36 Antibody Screen NEGATIVE 07/17/21 18:36 07/18/21 10:53 POC Glucose 250 H
--- NOTE | 2021-07-18 11:42 | Critical Care Consultation ---
Date of Consultation July 18, 2021 Assessment & Plan (1) Acute upper gastrointestinal bleeding: Reason Critically Ill: 70 year old female w/ hx of GI bleeds, stage 4 cancer, PE/DVT/afib on Eliquis who is here for hypovolemic shock 2/2 likely UGIB from erosive gastritis. GI - Acute upper GI bleed 2/2 erosive gastritis 05/24/21 EGD showing gastritis w/ hemorrhage and inability to advance scope past duodenal bulb due to extrinsic compression likely from pancreatic malignancy. Plan is EGD in the OR. NPO until EGD. pancreatic adenocarcinoma likely w/ extrinsic compression on duodenal bulb and biliary structures per prior mild transaminitis and elevated alk phos Cardiac - hypovolemic shock 2/2 UGIB resuscitating w/ 2L NSS boluses and 2u pRBC transiently required Levophed as systolic had dropped to 39 just prior to ICU arrival on reassessment after 1st bolus of NSS, vitals stable w/ 90s MAP w/o Levophed. 1st unit of pRBC running. sepsis elevated lactate 2.3->9.3 likely 2/2 hypovolemic shock above also accompanied by acidosis per VBG will check ABG after return from OR HEME - Hb 6.2 yesterday at ED admission. s/p 2uPRBC in ED and s/p KCentra in ED. Today, 8.6 at 4AM and 7.1 at 10AM. Ordered 2uPRBC. Hold home Eliquis Neuro - CAM ICU: negative Respiratory - mild tachypnea on vitals noted, saturating well on room air patient will be intubated during EGD procedure RENAL/LYTES - Follow, replace lytes as needed. - No concerns at this time. Dave will be placed when sent to OR for EGD. ENDO - DM2 Hypoglycemia protocol. Glycemic consult placed. No hx of thyroid disease. Not on chronic corticosteroids ID - wbc 11.15->9.7. No obvious infectious concern at this time. Zosyn IV provided in ED for empiric GI BC pending Temp 34.5, will provide bear hugger and monitor. Likely 2/2 hypovolemia. LINES/IV ACCESS - Bilateral PIVs. R upper chest port. DVT PROPHYLAXIS - anticoagulation held in setting of active UGIB (2) Gastric hemorrhage due to erosive gastritis: (3) Pancreatic cancer: (4) PAF (paroxysmal atrial fibrillation): (5) Type 2 diabetes mellitus: (6) Anemia: Supervising Physician Co-Signing Physician Notes Dr. De Leon was the resident-physician during care of patient. I separately evaluated patient for solomon portions of the history and the exam. I was present during the critical portion of medical decision making, and I discussed the case with the resident. I generally agree with the findings and plan except for any additions/exceptions noted. 72 female past medical history of multiple PEs and DVTs on Eliquis, A. fib, pancreatic cancer with invasion into the duodenum had previous history of hematemesis s/p EGD in the past Came to the hospital with complaints of hematemesis again. On the floor patient was found to be hypotensive and was transferred to the ICU for further management Patient was given 2 L of IV fluids on the floor. She was started on Levophed as well Arrival time of examination patient was in acute distress. Her map was in the mid 60s on Levophed 0.1. She was actively complaining of nausea and vomiting Plan will be to have the patient sent to EGD. Constitutional: In acute distress HEENT: EOMI, PERRLA, scleral icterus Respiratory system: Good air entry letter, no wheeze, no rhonchi, no crackles CVS: S1-S2 positive, no murmurs or gallops, tachycardia, right-sided port Abdomen: Soft, nontender, nondistended, positive bowel sounds x4, epigastric tenderness Extremities: +2 pulses bilaterally radialis/ dorsalis pedis, no cyanosis, no edema Neuro: Awake alert oriented to self Psych: Flat mood and affect G/U: Positive Dave Plan: Hemorrhagic shock likely from GI bleed Patient is to get 2 units PRBC. The patient is more than that and I will give her 1 unit of FFP as well as 1 unit of platelets Patient got 2 L of IV fluid, will give 2 more liters Continue with vasopressor support as the patient blood pressure has been the lower side We will try to wean the vasopressor off to keep MAP greater than 65. She has already gotten Kcentra while she was in the ED High anion gap metabolic acidosis is likely from underlying lactic acidosis from hypotensive episodes from bleeding We will give bicarb on an as-needed basis. Patient had EGDs in the past but they were not able to pass through the innervation of the pancreatic tumor into the duodenum Elevated LFTs with elevated bilirubin combination of tumor invasion/metastasis to the liver on top of shock. If they are not able to stop the bleeding and patient will likely need to be transferred to a tertiary center We will give empiric Zosyn to cover for intra-abdominal infection given the significant bleeding that she had as if covering for variceal bleed. Overall prognosis the patient is guarded. Patient remains full code Case was discussed with Dr. Rodriguez. I have personally spent 65 minutes of critical care time in the direct management of this patient. This is a life/limb threatening event. This includes time spent evaluating patient, direct bedside care, chart review, placing orders, interpretation of diagnostic studies, discussion with consultants, patient, and/or family members regarding treatment decisions, as well as other required patient management activities. This time is exclusive of all separately billable procedures, and teaching time and separate from and in addition to any other critical care service time. History of Present Illness Reason for Consultation: UGIB Attending Physician: Hossein Rodriguez MD History of Present Illness Shelia Alvarez is a 70 year old female w/ PMHx of prior UGIB, pancreatic adenocarcinoma, pAF, DVT, PE, and M2 who presents for multiple episodes of hematemesis since yesterday afternoon. She was transfused w/ 2 uprbc in the ED yesterday for a Hb of 6.2, w/ 8.5 on repeat. She was also given Kcentra in the ED. Last Eliquis was AM of 07/17/21. Patient's BP dropped to 40s systolic this morning at 10AM and was referred to the ICU. Patient reports lower abdominal pain and nausea, otherwise denies other complaints. No fatigue or changes in mentation. Hospitalist reconfirmed w/ patient's family regarding full code status. At bedside, patient also confirms that she would like all resuscitative measures. Allergies Allergy/AdvReac Type Severity Reaction Status Date / Time No Known Allergies Allergy Verified 07/17/21 19:15 Home Medications Medication Instructions Recorded Confirmed Type metoprolol tartrate 50 mg tablet 25 mg PO BID #180 tab 07/25/20 07/17/21 Rx apixaban 5 mg tablet (Eliquis) 5 mg PO BID #180 tab 04/30/21 07/17/21 Rx vitamins A,C,D-jvom-wymiti 7,160 1 tab PO BID 05/21/21 07/17/21 History unit-113 mg-100 unit tablet (PreserVision AREDS) pantoprazole 40 mg tablet,delayed 40 mg PO DAILY #30 tab 06/20/21 07/17/21 Rx release (Protonix) potassium chloride 20 mEq 20 meq PO DAILY 07/10/21 07/17/21 History tablet,extended release Lactobacillus acidophilus 10 10,000 mmu cells PO DAILY 07/17/21 07/17/21 History billion cell capsule (Probiotic) gemcitabine 1 gram intravenous 0 g IV DIRECTED 07/17/21 07/17/21 History solution Patient History Medical History Anemia Cardiac arrest 02/2020 - 2nd to massive/saddle PE History of biliary stent insertion Left leg DVT 02/2020 - with saddle PE PAF (paroxysmal atrial fibrillation) 03/2020 - post-op from embolectomy for saddle PE ([facility]) (mayte blanco with Dr. 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 Type 2 diabetes mellitus diet controlled Surgical History H/O tubal ligation History of colonoscopy History of embolectomy 02/2020 - - for massive saddle PE History of esophagogastroduodenoscopy (EGD) History of vascular access device port Rt chest S/P IVC filter 02/2020 - S/P patent foramen ovale closure 02/2020 - Family History Sister Breast cancer Cancer Father Depression Heart disease Hypertension Mother Kidney disease Sister Pancreatic adenocarcinoma diagnosed one week after patient was diagnosed Other No family history of adverse response to anesthesia Denies family history of Ovarian cancer Prostate cancer Myocardial infarction Colorectal cancer Social History Smoking Status: Never smoker Second Hand Exposure: No; Hx Alcohol Use: No Hx Substance Use: No Preferred Language: Icelandic Communication Ability: Effective Visual Impairment: No Limitations Hearing Ability: Hard of Hearing Panel Instrument Repairer Required: No Beliefs That Will Affect Care: None marital status: Current Living Situation: Spouse Current Living Situation Comment: lives with and son in [place]; has 5 kids 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 How many Children do You have: 5 Feels Safe at Home: Yes Childhood Exposure to Second-Hand Smoke: Yes caffeine: Yes (one cup in the am) during the past year weight has: decreased > 10 lbs Dental Care, Regularly: No Physical Activity Frequency: Does not Exercise Seatbelt Use: always Sunscreen Use: No Assistive Devices: Oxygen - Continuous Review of Systems Review of Systems: All systems reviewed & are unremarkable except as noted in HPI & below Constitutional: Denies fever, chills Cardiovascular: Denies chest pain Respiratory: Denies shortness of breath Gastrointestinal: + nausea and lower abd pain. Genitourinary: Denies urinary symptoms Musculoskeletal: Denies weakness, muscle aches/pain, joint aches/pain Neurological: Denies headache, numbness, tingling, focal weakness Physical Exam Physical Exam: General: Fully alert and oriented. NAD. Cooperative. Patient appears uncomfortable, she attributes to nausea and abd pain. HEENT: Atraumatic, normocephalic. EOMI. Pulm: CTAB. -wheezes, -rales, -rhonchi. No respiratory distress. Cardiac: RRR, -mrg. Soft radial pulse. Abdominal: Mild RUQ TTP. No rebound or rigidity. Integ: Intact, no erythema noted. + jaundice. Results & Data Results & Data ([facility]) Vital Signs (Past 12 Hours) Vital Signs Temp Pulse Pulse Resp BP BP Pulse Ox 07/18/21 10:29 104 H 16 122/72 100 07/18/21 10:22 36.3 C L 103 H 24 92/66 L 96 07/18/21 10:15 106 H 17 92/66 L 07/18/21 10:03 108 H 72/51 L 98 07/18/21 10:01 111 H 72/49 L 100 07/18/21 10:00 112 H 0 L 57/38 L 99 07/18/21 09:57 39/35 L 100 07/18/21 09:45 107 H 0 L 07/18/21 09:30 96 H 1 L 07/18/21 09:15 95 H 0 L 07/18/21 09:00 95 H 0 L 07/18/21 08:45 95 H 0 L 07/18/21 08:30 96 H 0 L 07/18/21 08:15 99 H 0 L 07/18/21 08:00 97 H 0 L 07/18/21 07:45 96 H 5 L 07/18/21 07:30 96 H 0 L 07/18/21 07:23 96 H 07/18/21 07:21 36.6 C 94 H 17 137/83 100 07/18/21 07:15 95 H 0 L 07/18/21 07:00 95 H 0 L 07/18/21 06:45 96 H 0 L 07/18/21 06:30 99 H 3 L 07/18/21 06:15 94 H 0 L 07/18/21 06:00 94 H 0 L 07/18/21 05:45 94 H 0 L 07/18/21 05:30 93 H 0 L 07/18/21 05:15 94 H 0 L 07/18/21 05:00 96 H 0 L 07/18/21 04:45 98 H 0 L 07/18/21 04:30 96 H 0 L 07/18/21 04:15 98 H 0 L 07/18/21 04:00 96 H 0 L 07/18/21 03:45 98 H 0 L 07/18/21 03:43 108 H 07/18/21 03:30 97 H 0 L 07/18/21 03:15 97 H 0 L 07/18/21 03:00 97 H 0 L 07/18/21 02:45 36.4 C L 98 H 0 L 135/81 100 07/18/21 02:36 36.8 C 116 H 16 168/71 H 100 07/18/21 02:30 36.5 C 108 H 0 L 170/71 H 99 07/18/21 02:27 114 H 7 L 07/18/21 02:01 112 H 23 166/89 H 100 07/18/21 01:45 89 2 L 147/81 H 100 07/18/21 01:30 90 19 144/82 H 100 07/18/21 01:20 36.6 C 88 23 144/82 H 100 07/18/21 01:15 99 H 17 161/87 H 100 07/18/21 01:00 100 H 16 151/101 H 100 07/18/21 00:50 36.7 C 103 H 14 146/102 H 100 07/18/21 00:45 110 H 19 146/102 H 100 07/18/21 00:35 36.8 C 90 24 144/82 H 100 07/18/21 00:30 99 H 21 138/69 99 07/18/21 00:19 36.7 C 109 H 16 180/107 H 100 07/18/21 00:15 112 H 23 180/107 H 99 07/18/21 00:00 94 H 0 L 130/67 99 07/17/21 23:45 103 H 16 152/80 H 99 07/17/21 23:42 37.2 C 103 H 18 167/108 H 99 07/17/21 23:30 89 0 L 122/66 99 Laboratory Results vbg w/ pH of 7.24. Cardiac Enzymes 07/17/21 07/18/21 07/18/21 Range/Units 18:36 04:11 10:03 AST 215 H 188 H 126 H (15-37) U/L Troponin I 0.041 (0-0.045) ng/ml Coagulation 07/17/21 Range/Units 18:36 PT 13.5 H (9.0-12.0) Seconds APTT 21.4 (21.0-31.0) Seconds CBC 07/17/21 07/18/21 07/18/21 Range/Units 18:36 04:11 10:03 WBC 11.15 H 8.25 9.70 (4.8-10.8) K/uL RBC 1.96 L 2.80 L 2.28 L (4.2-5.4) M/uL Hgb 6.2 L* 8.6 L 7.1 L (12.0-16.0) g/dL Hct 19.1 L* 26.5 L 21.7 L (37-47) % Plt Count 370 170 D 211 (130-400) K/uL Neut # (Auto) 9.70 H 7.28 H (1.4-6.5) K/uL Lymph # (Auto) 0.60 L 0.42 L (1.2-3.4) K/uL [place] # (Auto) 0.76 H 0.53 (0.11-0.59) K/uL Eos # (Auto) 0.02 0.00 (0-0.5) K/uL Baso # (Auto) 0.01 0.01 (0-0.2) K/uL Comprehensive Metabolic Panel 07/17/21 07/18/21 07/18/21 Range/Units 18:36 04:11 10:03 Sodium 142 139 143 (136-145) mmol/L Potassium 4.3 3.8 4.6 D (3.5-5.1) mmol/L Chloride 111 H 113 H 114 H (98-107) mmol/L Carbon Dioxide 21 20 L 16 L (21-32) mmol/L BUN 24 H 24 H 24 H (7-18) mg/dl Creatinine 0.99 1.18 1.17 (0.6-1.2) mg/dl Glucose 227 H 228 H 313 H* (70-99) mg/dl Calcium 8.0 L 7.6 L 7.7 L (8.5-10.1) mg/dl AST 215 H 188 H 126 H (15-37) U/L ALT 66 96 H 79 H (12-78) U/L Alkaline Phosphatase 552 H 541 H 443 H (45-117) U/L Total Protein 5.3 L 4.8 L 4.2 L (6.4-8.2) gm/dl Albumin 2.2 L 1.9 L 1.7 L (3.4-5.0) gm/dl Intake and Output 07/17/21 07/18/21 07/18/21 22:59 06:59 14:59 Intake Total 1400 / 2258.334 858.334 / 2258.334 113.34 / 113.34 Balance 1400 / 2258.334 858.334 / 2258.334 113.34 / 113.34 Intake: IV 1400 / 1638.334 238.334 / 1638.334 113.34 / 113.34 Acetaminophen 1,000 mg In 100 100 / 100 ml @ 400 mls/hr IV NOW STA Rx#: [id number] Calcium Gluconate 1,000 mg In 60 / 60 60 ml @ 240 mls/hr IV NOW STA Rx#:[id number] Norepinephrine/D5w 8 mg In 508 13.34 / 13.34 ml @ 0.05 MCG/KG/MIN 11.944 mls /hr IV .Q24H [facility], [facility]–1983 Rx#:[id number] PANTOprazole 40 mg In Dextrose 187.334 / 187.334 100 / 100 5% 100 ml @ 8 MG/HR 20 mls/hr IV Q5H [facility], [facility]1983 Rx#:[id number] PANTOprazole 80 mg In Dextrose 120 / 120 5% 100 ml @ 400 mls/hr IV NOW ONE Rx#:[id number] Piperacillin/Tazobactam 4.5 gm 120 / 120 In Dextrose 5% 100 ml @ 200 mls /hr IV NOW ONE Rx#:[id number] Promethazine HCl 25 mg In 51 / 51 Sodium Chloride 0.9% 50 ml @ 204 mls/hr IV ONE ONE Rx#: [id number] Sodium Chloride 0.9% 1000ML 1, 1000 / 1000 000 ml @ 999 mls/hr IV .Q1H1M ONE Rx#:[id number] Intake (Blood Product) Amt 0 / 620 620 / 620 0 / 0 Packed Cells, Leukoreduced 0 / 310 310 / 310 Unit [id number] Packed Cells, Leukoreduced 310 / 310 Unit [id number] Packed Cells, Leukoreduced 0 / 0 Unit [id number] Other: Weight 55 kg 62.7 kg 62.7 kg Weight Measurement Method Built in [facility] Built in [facility] Patient Weight 07/19/21 06:59 Weight 62.7 kg Diagnostic Findings Abdomen/Pelvis CT 07/17/21 18:[address] WITH IV CONTRAST CT DOSE: 295.94 mGy.cm HISTORY: Acute GI bleed with nausea and vomiting. History of pancreatic carcinoma Gi bleeding, n/v, h/o panc CA TECHNIQUE: Multiaxial CT images of the abdomen and pelvis were performed following the IV administration of 94 cc of Optiray, A dose lowering technique was utilized adhering to the principles of ALARA. COMPARISON STUDY: CT abdomen and pelvis 06/22/2021, 04/16/2021, 10/05/2019. FINDINGS: Prior median sternotomy with findings suggestive of CABG. A superior approach catheter is noted terminating within the infrahepatic IVC. The lung bases appear clear. No pneumatosis or pneumoperitoneum. The spleen and adrenal glands are unremarkable. Atrophic pancreas with upstream pancreatic dilation redemonstrated. Pancreatic head mass with ill-defined margins redemonstrated measuring up to approximately 3.5 cm in AP dimension. Intrahepatic and extrahepatic biliary ductal dilation with associated pneumobilia redemonstrated along with periportal edema. No hepatic metastatic lesions identified. There are two common bile duct stents remain in satisfactory positioning. Biliary air and debris is again noted adjacent to the stent. Chronic wall thickening of the distal stomach and duodenum. Moderately distended gallbladder with associated wall thickening is unchanged. High-grade narrowing at the portal splenic confluence is unchanged. Unremarkable kidneys without hydronephrosis. Unremarkable urinary bladder. Vascular calcifications of the uterus. Atherosclerosis of the abdominal aorta. Intrahepatic IVC filter. No adenopathy. Small ill-defined abdominal pelvic a scites. Gaseous distention of the rectum. Moderate circumferential wall thickening of the cecum, ascending and proximal transverse colon. The appendix measures 7 mm and appears to be noninflamed. Mild generalized body wall edema. Degenerative changes of the spine, pelvis and hips. No suspicious bone lesions. IMPRESSION: 1. Infiltrative pancreatic head mass with ill-defined margins redemonstrated, the exact margins of the lesion are difficult to quantify however appears generally stable from the 06/22/2021 exam. 2. Severe narrowing of the portal splenic confluence is unchanged. 3. Body wall edema with small volume of abdominal pelvic ascites. 4. Unchanged positioning of the two common bile duct stents with persistent intrahepatic and extrahepatic biliary ductal dilation with pneumobilia. 5. Moderate wall thickening of the cecum, ascending and proximal transverse colon is suggestive of a nonspecific colitis. 6. No bowel obstruction. ACT 112: Negative or not required by law. The above report was generated using voice recognition software. It contain grammatical, syntax or spelling errors. Electronically signed by: Von Rico M.D. 07/17/2021 9:03 PM Resident Activity Tracking Resident Involvement: Resident Care Provided Care Provided: Adult Hospital Medicine (1) Pancreatic cancer Pancreatic malignancy location: unspecified Qualified Code(s): C25.9 - Malignant neoplasm of pancreas, unspecified
--- NOTE | 2021-07-18 12:24 | Procedure Note ---
Procedure Note Date of Service July 18, 2021 Note GI post procedure note EGD findings: blood noted in the duodenum with extrinsic compression evident in the bulb and thrombosis/hemorrhage likely from tumor erosion/invasion. treated with bipolar successfully. hemorrhagic gastritis, also treated with bipolar. recs: supportive care trend H/H, transfuse prn cancer treatment as per oncology if bleeding should persist, would recommend transfer to a tertiary care center with IR capabilities Jordi Simmons MD Gastroenterology Coding
--- NOTE | 2021-07-18 12:31 | GI REPORT ---
Patient Name: Shelia Alvarez Procedure Date: 07/18/2021 11:30 AM Date of : 1950 Admit Type: Inpatient Age: 70 Gender: Female Attending MD: Jordi Simmons MD Procedure: Upper GI endoscopy Providers: Jordi Simmons MD Referring MD: Jordi Simmons MD Indications: Hematemesis Medicines: Monitored Anesthesia Care Complications: No immediate complications. Estimated blood loss: None. Estimated Blood Loss: Estimated blood loss: none. Procedure: Pre-Anesthesia Assessment: - Prior Anticoagulants: The patient has taken no previous anticoagulant or antiplatelet agents. - ASA Grade Assessment: IV - A patient with severe systemic disease that is a constant threat to life. After obtaining informed consent, the endoscope was passed under direct vision. Throughout the procedure, the patient's blood pressure, pulse, and oxygen saturations were monitored continuously. The Endoscope was introduced through the mouth, and advanced to the duodenal bulb. The upper GI endoscopy was accomplished without difficulty. The patient tolerated the procedure well. Findings: The examined esophagus was normal. Diffuse severe inflammation with hemorrhage characterized by erythema and friability was found in the stomach. Coagulation for bleeding prevention using bipolar probe was successful. Estimated blood loss: none. Red blood was found in the duodenal bulb along with thrombosis and extrinsic compression likely from the tumor burden. Coagulation for hemostasis using bipolar probe was successful. Estimated blood loss: none. Unable to advance the endoscope beyond the compressed duodenal bulb. Impression: - Normal esophagus. - Gastritis with hemorrhage. Treated with bipolar cautery. - Blood in the duodenal bulb. Treated with bipolar cautery. - No specimens collected. Recommendation: - Return patient to hospital bro for ongoing care. - Clear liquid diet today. supportive care, trend H/H -treatment of pancreatic cancer as per oncology -if bleeding should persist/worsen, would recommend transfer to a tertiary care center with IR capability. -protonix 40 mg IV daily Jordi Simmons MD 07/18/2021 12:31:27 PM This report has been signed electronically. Note Initiated On: 07/18/2021 11:30 AM Number of Addenda: 0 I attest to the content of the Intraoperative Record and orders documented therein, exceptions below {[id number]}
[2021-07-18] MEDS ORDERED: PHENYLEPHRINE 100MCG/ML 5ML SYR ONE (12:48)
--- NOTE | 2021-07-18 12:48 | Anesthesiology Progress Note ---
Date of Service July 18, 2021 Anesthesia Post Procedure Vital Signs Vital Signs: Temp Pulse Pulse Resp BP BP Pulse Ox 07/18/21 11:46 34.6 C L 105 H 30 H 130/82 100 07/18/21 11:44 104 H 28 H 130/82 100 07/18/21 11:33 34.5 C L 105 H 28 H 121/76 100 07/18/21 11:29 104 H 17 121/76 100 07/18/21 11:14 102 H 25 H 129/84 99 07/18/21 10:59 102 H 26 H 131/89 100 07/18/21 10:44 104 H 32 H 134/90 99 07/18/21 10:30 107 H 07/18/21 10:29 104 H 16 122/72 100 07/18/21 10:22 36.3 C L 103 H 24 92/66 L 96 07/18/21 10:15 106 H 17 92/66 L 07/18/21 10:03 108 H 72/51 L 98 07/18/21 10:01 111 H 72/49 L 100 07/18/21 10:00 112 H 0 L 57/38 L 99 07/18/21 09:57 39/35 L 100 07/18/21 09:45 107 H 0 L 07/18/21 09:30 96 H 1 L 07/18/21 09:15 95 H 0 L 07/18/21 09:00 95 H 0 L 07/18/21 08:45 95 H 0 L 07/18/21 08:30 96 H 0 L 07/18/21 08:15 99 H 0 L 07/18/21 08:00 97 H 0 L 07/18/21 07:45 96 H 5 L 07/18/21 07:30 96 H 0 L 07/18/21 07:23 96 H 07/18/21 07:21 36.6 C 94 H 17 137/83 100 07/18/21 07:15 95 H 0 L 07/18/21 07:00 95 H 0 L 07/18/21 06:45 96 H 0 L 07/18/21 06:30 99 H 3 L 07/18/21 06:15 94 H 0 L 07/18/21 06:00 94 H 0 L 07/18/21 05:45 94 H 0 L 07/18/21 05:30 93 H 0 L 07/18/21 05:15 94 H 0 L 07/18/21 05:00 96 H 0 L 07/18/21 04:45 98 H 0 L 07/18/21 04:30 96 H 0 L 07/18/21 04:15 98 H 0 L 07/18/21 04:00 96 H 0 L 07/18/21 03:45 98 H 0 L 07/18/21 03:43 108 H 07/18/21 03:30 97 H 0 L 07/18/21 03:15 97 H 0 L 07/18/21 03:00 97 H 0 L 07/18/21 02:45 36.4 C L 98 H 0 L 135/81 100 07/18/21 02:36 36.8 C 116 H 16 168/71 H 100 07/18/21 02:30 36.5 C 108 H 0 L 170/71 H 99 07/18/21 02:27 114 H 7 L 07/18/21 02:01 112 H 23 166/89 H 100 07/18/21 01:45 89 2 L 147/81 H 100 07/18/21 01:30 90 19 144/82 H 100 07/18/21 01:20 36.6 C 88 23 144/82 H 100 07/18/21 01:15 99 H 17 161/87 H 100 07/18/21 01:00 100 H 16 151/101 H 100 07/18/21 00:50 36.7 C 103 H 14 146/102 H 100 07/18/21 00:45 110 H 19 146/102 H 100 07/18/21 00:35 36.8 C 90 24 144/82 H 100 07/18/21 00:30 99 H 21 138/69 99 07/18/21 00:19 36.7 C 109 H 16 180/107 H 100 07/18/21 00:15 112 H 23 180/107 H 99 07/18/21 00:00 94 H 0 L 130/67 99 07/17/21 23:45 103 H 16 152/80 H 99 07/17/21 23:42 37.2 C 103 H 18 167/108 H 99 07/17/21 23:30 89 0 L 122/66 99 07/17/21 23:15 37.3 C 94 H 4 L 128/68 99 07/17/21 23:01 104 H 19 156/71 H 99 07/17/21 22:45 89 12 116/60 100 07/17/21 22:30 88 18 110/58 L 99 07/17/21 22:15 36.8 C 91 H 19 111/57 L 99 07/17/21 22:00 91 H 18 112/55 L 99 07/17/21 21:47 36.6 C 07/17/21 21:45 36.6 C 96 H 12 102/53 L 99 07/17/21 21:30 36.8 C 98 H 21 105/52 L 99 07/17/21 21:15 37.2 C 99 H 21 108/53 L 99 07/17/21 21:05 37.5 C 99 H 20 95/60 L 100 07/17/21 21:00 100 H 19 100 07/17/21 20:50 98 H 20 100 07/17/21 20:45 99 H 20 100 07/17/21 20:42 101 H 19 100 07/17/21 20:00 105 H 3 L 121/61 98 07/17/21 19:30 108 H 26 H 132/66 99 07/17/21 19:00 115 H 19 142/73 H 99 07/17/21 18:56 116 H 19 100 07/17/21 18:31 123 H 18 143/52 H 98 07/17/21 18:00 39.8 C H 118 H 18 138/86 98 Transfer of Care Handoff Completed per policy Notes Mental Status: see notes below Patient Amnestic to Procedure: Yes Nausea / Vomiting: adequately controlled Pain: adequately controlled Airway Patency, RR, SpO2: see Notes below BP & HR: see Notes below Hydration State: stable & adequate Anesthetic Complications: no major complications apparent Notes: patient requiring hemodynamic support with norepinephrine drip, and high risk for rebleeding given the endoscopic findings. Signout given personally to civil celebrant.
[2021-07-18] MEDS ORDERED: fentaNYL DRIP 1,250 MCG/250 ML BAG IV SCH (13:30)
[2021-07-18] MEDS ORDERED: PIPERACILL/TAZOBAC CONSULT ACTIVE PRN (14:04)
[2021-07-18] MEDS ORDERED: PIPERACILLIN/TAZOBACTAM 3.375 GM in DEXTROSE 5% 100 ML IV ONE (14:15)
--- NOTE | 2021-07-18 14:28 | Pharmacy Report ---
Pharmacy Glycemic Short Note 2 - Date of Service July 18, 2021 - Glycemic Short BSG Results (Last 24 hours): 07/17/21 07/18/21 07/18/21 18:36 04:11 10:03 Glucose 227 H 228 H 313 H* POC Glucose 07/18/21 07/18/21 07/18/21 10:53 13:08 14:03 Glucose POC Glucose 250 H 261 H 260 H OUTPATIENT ANTIDIABETIC REGIMEN: * N/A * A1c pending ASSESSMENT: * Pt admitted with GI bleed, was on eliquis outpatient, history of pancreatic cancer, transferred to ICU as patient was hypotensive, underwent EGD * BSGs elevated on admission/throughout the morning, will start insulin infusion per protocol as patient was started on norepinephrine infusion * Patient does not appear to be on any diabetic medications prior to arrival and A1c from 11/15/20 was 5.7%. Anticipate patient can be transitioned off of insulin infusion tomorrow morning if pressures improve. PLAN FOR INPATIENT GLYCEMIC CONTROL: * Insulin infusion per protocol
--- NOTE | 2021-07-18 14:56 | Hospitalist Progress Note ---
Date of Service July 18, 2021 Assessment & Plan (1) Acute upper gastrointestinal bleeding: Plan: Due to gastritis and duodenal bleeding from pancreatic cancer. Acute blood loss anemia. - EGD on 07/[address] Simmons with cauterization x 2. Unable to pass the scope pass the compressed area of the duodenum from the tumor. - Continue PPI gtt - GI following - Presently receiving her 4th unit of PRBCs. Will need to add platelets and FFP if she needs much more. (2) Adenocarcinoma of head of pancreas: Plan: Follows with Dr. Cordova. Had to skip last chemotherapy cycle due to anemia. - Discussed on 07/18. No inpatient needs. - If patient able to survive this acute illness, should consider palliative care consult - Monitor Tbili; presently rising. Concern that biliary stents are blocked. Family would like to transfer for stent replacement or percutaneous cholecystostomy if needed. (3) Saddle pulmonary embolus: Plan: In 02/2020 causing cardiac arrest. - Stop anticoagulation. She is obviously in a terrible situation where she requires anticoagulation, but currently has life-threatening illness that precludes it. (4) Severe protein-calorie malnutrition: Plan: Due to cancer. (5) Type 2 diabetes mellitus: Plan: Last A1c was 5.7%. Diet-controlled. - Monitor Plan: Full code - Discussed with patient prior to decompensation who confirmed full code. Discussed with and daughter on 07/18 who both would like all medically-required procedures to go forward, including pressors, lines, proce dures, and even transfer if needed. Admission and Anticipated Discharge Date Admission Date: July 17, 2021 Subjective Reported no abdominal pain. No shortness of breath. Unable to answer further questions. Physical Exam Constitutional: + acute distress and + frail appearing Eyes: EOM intact bilaterally; sclerae not anicteric ENMT: external ear and nose normal, oropharynx normal Neck: trachea midline, no thyromegaly normal visual inspection Respiratory: + respiratory distress and + labored breathing Auscultation: lungs clear to auscultation bilaterally Cardiovascular: Rate/Rhythm: regular rhythm and + tachycardic Heart Sounds: normal S1 and normal S2 Gastrointestinal (Abdomen): Inspection/Auscultation: + abdomen abnormal to inspection (Hematemesis) and abdomen not distended Musculoskeletal: no cyanosis or clubbing, extremities motor strength 5/5 Skin: no rashes, warm and dry Neurologic: moves all extremities and awake Psychiatric: Orientation: alert, oriented to person and cooperative Results & Data Results & Data ([facility]) Vital Signs (Past 12 Hours) Vital Signs Temp Pulse Pulse Resp BP BP Pulse Ox 07/18/21 14:18 35.2 C L 102 H 21 112/62 100 07/18/21 14:16 35.2 C L 104 H 20 109/63 100 07/18/21 13:34 34.8 C L 100 H 14 118/60 100 07/18/21 13:04 100 H 115/78 100 07/18/21 12:58 34.8 C L 101 H 21 115/76 100 07/18/21 12:50 99 H 20 100 07/18/21 12:48 34.7 C L 98 H 21 135/65 100 07/18/21 12:44 100 H 22 135/82 100 07/18/21 12:38 34.5 C L 98 H 24 135/82 07/18/21 12:34 34.6 C L 93 H 24 117/45 L 100 07/18/21 12:30 96 H 7 L 100 07/18/21 12:04 34.6 C L 104 H 28 H 130/82 100 07/18/21 11:49 34.5 C L 103 H 24 121/76 100 07/18/21 11:46 34.6 C L 105 H 30 H 130/82 100 07/18/21 11:44 104 H 28 H 130/82 100 07/18/21 11:33 34.5 C L 105 H 28 H 121/76 100 07/18/21 11:29 104 H 17 121/76 100 07/18/21 11:14 102 H 25 H 129/84 99 07/18/21 10:59 102 H 26 H 131/89 100 07/18/21 10:44 104 H 32 H 134/90 99 07/18/21 10:30 107 H 07/18/21 10:29 104 H 16 122/72 100 07/18/21 10:22 36.3 C L 103 H 24 92/66 L 96 07/18/21 10:15 106 H 17 92/66 L 07/18/21 10:03 108 H 72/51 L 98 07/18/21 10:01 111 H 72/49 L 100 07/18/21 10:00 112 H 0 L 57/38 L 99 07/18/21 09:57 39/35 L 100 07/18/21 09:45 107 H 0 L 07/18/21 09:30 96 H 1 L 07/18/21 09:15 95 H 0 L 07/18/21 09:00 95 H 0 L 07/18/21 08:45 95 H 0 L 07/18/21 08:30 96 H 0 L 07/18/21 08:15 99 H 0 L 07/18/21 08:00 97 H 0 L 07/18/21 07:45 96 H 5 L 07/18/21 07:30 96 H 0 L 07/18/21 07:23 96 H 07/18/21 07:21 36.6 C 94 H 17 137/83 100 07/18/21 07:15 95 H 0 L 07/18/21 07:00 95 H 0 L 07/18/21 06:45 96 H 0 L 07/18/21 06:30 99 H 3 L 07/18/21 06:15 94 H 0 L 07/18/21 06:00 94 H 0 L 07/18/21 05:45 94 H 0 L 07/18/21 05:30 93 H 0 L 07/18/21 05:15 94 H 0 L 07/18/21 05:00 96 H 0 L 07/18/21 04:45 98 H 0 L 07/18/21 04:30 96 H 0 L 07/18/21 04:15 98 H 0 L 07/18/21 04:00 96 H 0 L 07/18/21 03:45 98 H 0 L 07/18/21 03:43 108 H 07/18/21 03:30 97 H 0 L 07/18/21 03:15 97 H 0 L 07/18/21 03:00 97 H 0 L PG Care Time/CCT Total # of Minutes Spent Total Time Spent with Patient: Total time spent is greater than 50% in coordination of care (as documented) at patient's floor/unit and/or counseling patient: Coding Level of Care Code 05149 Subseq Hosp Care Lvl 3 Diagnoses Acute upper gastrointestinal bleeding K92.2 Adenocarcinoma of head of pancreas C25.0 Severe protein-calorie malnutrition E43 Saddle pulmonary embolus I26.02 Chronicity: unspecified Acute cor pulmonale presence: with acute cor pulmonale Type 2 diabetes mellitus E11.9 (1) Saddle pulmonary embolus Chronicity: unspecified Acute cor pulmonale presence: with acute cor pulmonale Qualified Code(s): I26.02 - Saddle embolus of pulmonary artery with acute cor pulmonale
[2021-07-18] MEDS ORDERED: EPINEPHrine/NSS 4 MG/254 ML BAG IV SCH (16:15)
[2021-07-18] MEDS ORDERED: HYDROCORTISONE SOD 200 MG in SYRINGE 0 ML IV STA (16:15)
[2021-07-18] MEDS ORDERED: SODIUM BICARB 8.4% INJ 50 MEQ/50 ML SYR IV ONE (16:27)
[2021-07-18 16:47] LABS: iSTAT Allen Test Pass; iSTAT Art Bld Gas pCO2 Correct 30 mmHg (35-46); iSTAT Art Bld Gas pH Corrected 7.053 (7.35-7.45); iSTAT Arterial Blood Gas HCO3 8 meg/L (19-24); iSTAT Arterial Blood Gas pCO2 30 mmHg (35-46); iSTAT Arterial Blood Gas pH 7.05 (7.35-7.45); iSTAT Arterial Blood Gas pO2 > 420 mmHg (80-95); iSTAT Arterial Blood Gas pO2 C 440; iSTAT Carbon Dioxide 9 mmol/L (24-31); iSTAT Hematocrit 16 % (37-47); iSTAT Hemoglobin 5.4 g/dl (12.0-16.0); iSTAT Potassium 5.2 mmol/L (3.3-5.0); iSTAT Site Art Line; iSTAT Sodium 144 mmol/L (135-144)
[2021-07-18] MEDS ORDERED: VASOPRESSIN 20 UNITS in 0.9 % SODIUM CHLORIDE 100 ML IV SCH (17:00)
[2021-07-18] MEDS ORDERED: SODIUM BICARBONATE 8.4% 150 MEQ in WATER, STERILE 1,000 ML IV SCH (17:00)
--- NOTE | 2021-07-18 17:14 | Billing Data ---
Date of Service July 18, 2021 Coding Level of Care Code Critical Care 1st 30-74 mins Time Spent (min) 65
--- NOTE | 2021-07-18 17:19 | Communication Note ---
Date of Service: July 18, 2021 Critical CARE addendum: Was called bedside to evaluate the patient as patient was getting hypotensive She was successfully weaned off of Levophed prior to this episode At the time of examination patient's arterial line was reading systolic in the 30s. She was not responding Levophed was started at 0.5 again. Pulse was present and confirmed with Doppler ultrasound. Patient has just finished his second unit of PRBC. Patient has gotten total 4 units of PRBC since coming to the hospital FiO2 was increased to 100%. Epinephrine was started. Stat chest x-ray was ordered to make sure there is no perforation. I personally looked at the chest x-ray there was no air under the diaphragm. Bilateral costophrenic and cardiophrenic angles were clean. No pulmonary infiltrate. Patient blood pressure did improve to systolic in the 60s but it was requiring very high doses of epinephrine as well as Levophed. Vasopressin was added ABG was done which showed pH of 7.05 with PO2. Respiratory to the patient ventilator was increased to 28. Patient was given 4 A of bicarb and started on bicarb drip. 1 unit of FFP as well as platelets were ordered. 200 mg of hydrocortisone was given to the patient. Stat CBC and CMP was ordered along with lactate. Patient's family was given a call updated regarding patient's deteriorating condition. Patient was made no CPR I did call [facility] and spoke with Dr. Davis who said they were not able to accept the patient as they have no ICU bed availability. Dr. Rodriguez was also updated regarding the current situation of the patient. He is working with [facility] to see if they will be able to accept the patient. I spoke with the family on the phone as well as in person when they came at bedside with and daughter Shanthi. I again reiterated that patient is getting maximal support when it comes to vasopressors as well as vent support. If her heart stops while on this m edication is doing CPR would not be beneficial. They understand and would not want that. I also gave my opinion regarding going towards comfort measures. They are still in shock and are thinking about it. I did tell them the we are here to assist them in any way possible. I have personally spent additional 50 minutes of critical care time in the direct management of this patient. This is a life/limb threatening event. This includes time spent evaluating patient, direct bedside care, chart review, placing orders, interpretation of diagnostic studies, discussion with consultants, patient, and family members, as well as other required patient management activities. This time is exclusive of all separately billable procedures, and teaching time and separate from and in addition to any other critical care service time. Please note the above document was generated using voice recognition software. It may contain grammatical, syntax or spelling errors. Coding Level of Care Code Critical Care isi butcher'l 30 min Time Spent (min) 50
--- NOTE | 2021-07-18 17:22 | XRay Report ---
SINGLE VIEW CHEST CLINICAL HISTORY: Respiratory failure. FINDINGS: 2 AP, portable, upright chest radiographs are compared to study dated 03/17/2020 and correla juan with chest CT dated 06/22/2021. A right-sided central venous infusion port is unchanged in position . The patient is status post midline sternotomy. An enteric tube has been placed. The tip projects be low the diaphragm over the proximal stomach. An endotracheal tube has been placed. The tip projects a pproximately 5.5 cm above the darren. The cardiomediastinal silhouette is unremarkable noting atheros clerotic calcification of the thoracic aorta. Chronic interstitial thickening is similar to previous. There is bibasilar scarring/atelectasis. No airspace consolidation or large pleural effusion is iden tified. No pneumothorax is seen. The skeletal structures are osteopenic. The bony thorax is grossly i ntact. A catheter projects over the right upper quadrant of the abdomen. IMPRESSION: 1. Endotracheal and enteric tubes have been placed as above. 2. No airspace consolidation or large pleural effusion is identified. ACT 112: Negative or not required by law. Electronically signed by: Fletcher Qureshi M.D. 07/18/2021 5:21 PM
[2021-07-18 19:25] VITALS: BP 60/50; TEMP 97.9
[2021-07-18 20:29] VITALS: PULSE 108; O2SAT 100
--- NOTE | 2021-07-18 21:12 | Procedure Note ---
Procedure Note Date of Service July 18, 2021 Note PRONOUNCEMENT NOTE - Date: 07/18/2021 Time: 2099 I was contacted by nursing staff regarding the patients declining status and concerns for imminent demise. In short, patient was undergoing treatment for acute GI bleed and underwent EGD where she was found to have bleeding gastritis. Following EGD she was admitted to the ICU but continued to bleed and entered hypovolemic shock. Transfer to tertiary center for possible IR intervention was delayed due to high patient capacities as documented. She remained hemodynamically unstable following blood transfusions and continued to decompensate. She was made conditional code with no compressions, no shocks, or other ACLS measures. Patient became bradycardic on monitor and entered PEA rhythm. She was pronounced by myself at 2100. Assessment: I presented to the patients room for evaluation. Upon assessment, the patient was found to be in a terminal state. Pupils were fixed and dilated without response. No palpable pulses appreciated. Heart sounds were absent. No response to painful stimuli. Time of : 2099 as pronounced by myself. Family present at bedside. Appropriate response to grief appreciated. Condolences provided. Questions were addressed and emotional support was provided. Patients primary service was contacted and made aware of patient demise. Pronouncement section of the Certificate was filled out and signed by myself. Cause of : Primary -acute blood loss anemia Secondary -acute GI bleed Contributing Causes of -pancreatic cancer Please feel free to contact me with any questions regarding the above-mentioned course. Coding
--- NOTE | 2021-07-18 21:18 | Billing Data ---
Date of Service July 18, 2021 Coding Level of Care Code 97188 Initial Inpt Care Lvl 3
[2021-07-19] MEDS ORDERED: HYDROCORTISONE SOD 50 MG in SYRINGE 0 ML IV SCH
--- NOTE | 2021-07-19 05:11 | Electrocardiogram Report ---
Test Reason : Blood Pressure : / mmHG Vent. Rate : 119 BPM Atrial Rate : 119 BPM P-R Int : 144 ms QRS Dur : 078 ms QT Int : 346 ms P-R-T Axes : 080 062 089 degrees QTc Int : 486 ms Poor data quality, interpretation may be adversely affected Sinus tachycardia Nonspecific ST and T wave abnormality Abnormal ECG When compared with ECG of 03-APR-2020 11:50, Vent. rate has increased BY 46 BPM QRS duration has decreased Confirmed by Andres Pack ([id number]) on 07/19/2021 5:11:11 AM Referred By: REFERRED SELF Confirmed By:Andres Pack
--- NOTE | 2021-07-19 05:48 | Electrocardiogram Report ---
Test Reason : Blood Pressure : / mmHG Vent. Rate : 103 BPM Atrial Rate : 103 BPM P-R Int : 136 ms QRS Dur : 084 ms QT Int : 376 ms P-R-T Axes : 084 063 073 degrees QTc Int : 492 ms Poor data quality, interpretation may be adversely affected Sinus tachycardia with occasional Premature ventricular complexes Low voltage QRS Poor R wave progression, consider anterior [place] vs. lead placement vs. LVH Prolonged QT Abnormal ECG When compared with ECG of 17-JUL-2021 18:46, Premature ventricular complexes are now Present Confirmed by Andres Pack ([id number]) on 07/19/2021 5:47:49 AM Referred By: REFERRED SELF Confirmed By:Andres Pack
--- NOTE | 2021-07-19 07:58 | Discharge Summary ---
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 Over the last several months has had multiple rounds of hematemesis, with EGD in May with Dr. Simmons demonstrating gastric hemorrhage and erosive gastritis, with planned repeat EGD in July. Last week presented to oncology clinic with hemoglobin of 6.9 and subsequently transfused 2 units of packed red blood cells at that point time, at that time was not having any hematemesis symptoms. Upon presentation to ED he continued to have hematemesis, with nausea and vomiting controlled by combination of Zofran and Phenergan. Received 2 units packed red blood cells in ED. Principal Diagnosis Pancreatic cancer causing GI bleed Discharge Exam No pulse, no respirations Discharge Data Allergies Allergy/AdvReac Type Severity Reaction Status Date / Time No Known Allergies Allergy Verified 07/17/21 19:15 Consultations 07/17/21 21:31 ED Decision to Admit Stat 07/18/21 02:36 Consult Gastroenterology Routine 07/18/21 10:15 Consult Medical Claims Processor Stat Procedures Performed Operation Date: 07/18/21 13:20 Actual Procedures p Esophagogastroduodenoscopy(Not Applicable) - Jordi Simmons MD Operation Date: 07/18/21 16:30 <No data on this case meets the specified criteria> Ordered Studies 07/17/21 18:21 CT abd pelvis IV con only Stat Hospital Course (1) Acute upper gastrointestinal bleeding: Despite massive tranfusion support, IV fluids, and pressors, the patient remained hypotensive and became moreso. Multiple tertiary care centers were called and unable to accept the patient. The family elected not to pursue CPR/compressions, and she became pulseless at 9pm with PEA rhythm. She was pronounced at 9:00 pm. Due to gastritis and duodenal bleeding from pancreatic cancer. Acute blood loss anemia. - EGD on 07/[address] Simmons with cauterization x 2. Unable to pass the scope pass the compressed area of the duodenum from the tumor. - Continue PPI gtt - GI following - Presently receiving her 4th unit of PRBCs. Will need to add platelets and FFP if she needs much more. (2) Adenocarcinoma of head of pancreas: Follows with Dr. Cordova. Had to skip last chemotherapy cycle due to anemia. - Discussed on 07/18. No inpatient needs. - If patient able to survive this acute illness, should consider palliative care consult - Monitor Tbili; presently rising. Concern that biliary stents are blocked. Family would like to transfer for stent replacement or percutaneous cholecystostomy if needed. (3) Saddle pulmonary embolus: In 02/2020 causing cardiac arrest. - Stop anticoagulation. She is obviously in a terrible situation where she requires anticoagulation, but currently has life-threatening illness that precludes it. (4) Severe protein-calorie malnutrition: Due to cancer. (5) Type 2 diabetes mellitus: Last A1c was 5.7%. Diet-controlled. - Monitor Full code - Discussed with patient prior to decompensation who confirmed full code. Discussed with and daughter on 07/18 who both would like all medically-required procedures to go forward, including pressors, lines, procedures, and even transfer if needed. Total Time Total Time Spent Total Time Spent (In Minutes): 35 Discharge Plan Discharge Items Patient Disposition: Other Date/Time: 07/18/21 21:00 Coding Level of Care Code D/C DAY MANAGEMENT >30 MINS Diagnoses Acute upper gastrointestinal bleeding K92.2 Adenocarcinoma of head of pancreas C25.0 Saddle pulmonary embolus I26.02 Chronicity: unspecified Acute cor pulmonale presence: with acute cor pulmonale Severe protein-calorie malnutrition E43 Type 2 diabetes mellitus E11.9
--- NOTE | 2021-07-19 08:01 | Death Pronouncement Note ---
Date of Service July 19, 2021 Pronouncement Note Admission Date Admission Date: July 17, 2021 Date and Time of Date of : 07/18/21 Time of : 21:00 PCOD Preliminary cause of : Bleeding Contributing Factors (1) Acute upper gastrointestinal bleeding: (2) Adenocarcinoma of head of pancreas: (3) Saddle pulmonary embolus: (4) Severe protein-calorie malnutrition: (5) Type 2 diabetes mellitus: Hospital Course Hospital Course: GI bleed due to pancreatic cancer and anticoagulation for her prior PE. Despite massive transfusion support, IV fluids, and even pressors, she became hypotensive. Eventually had episode of bradycardia followed by PEA arrest. At that time, family elected not to pursue chest compressions/CPR as her chance of recover was minimal. She was pronounced at 9:00pm. Additional Data Confirmation of : no pulse, no respirations, no heart sounds and pupils fixed and dilated Family: at bedside Attending/PCP notified?: Yes Attending physician: Hossein Rodriguez MD Was code activated?: No Coding Level of Care Code D/C DAY MANAGEMENT >30 MINS Diagnoses Acute upper gastrointestinal bleeding K92.2 Adenocarcinoma of head of pancreas C25.0 Saddle pulmonary embolus I26.02 Chronicity: unspecified Acute cor pulmonale presence: with acute cor pulmonale Severe protein-calorie malnutrition E43 Type 2 diabetes mellitus E11.9
== END 2021-07-18 21:00 | disposition expired | DRG 377 ==
LOC: ED 18:01 → 2S 22:51 → SUATTDRO 22:51 → 2S 07-18 01:47 → 1E 07-18 10:14